=== PATIENT | male | born 1970 | race Caucasian/White ===

== ENCOUNTER 2017-01-01 11:40 | Observation (INO) | payer OTHER ==
--- NOTE | 2017-01-01 12:31 | ED ---
General Adult HPI - General Chief complaint: Chest Pain Stated complaint: Chest Pain Time Seen by Provider: 01/01/17 11:48 Source: patient, RN notes reviewed Mode of arrival: EMS Limitations: no limitations - History of Present Illness Initial comments: 46-year-old presents for evaluation of chest pain. Patient was sent by primary care physician for evaluation. Patient reports chest pain with exertion. Describes this as pressure. Severe at its maximum intensity, currently patient is chest pain-free. Is associated with some lightheadedness and shortness of breath. Patient is a current smoker. He does have history of previous PR, denies any stent placement. States his last stress test was several years ago. Patient has additional past medical history of hypertension, PTSD, anxiety. Patient denies nausea vomiting. Denies diaphoresis. - Related Data Home Medications Medication Instructions Recorded Confirmed Cyclobenzaprine [Flexeril] 10 mg PO BID PRN 10/26/15 01/01/17 Gabapentin [Neurontin] 900 mg PO TID 10/26/15 01/01/17 Ibuprofen [Motrin] 800 mg PO TID 10/26/15 01/01/17 Nitroglycerin Sl Tabs [Nitrostat] 0.4 mg SUBLINGUAL Q5M PRN 10/26/15 01/01/17 Omeprazole 20 mg PO BID 10/26/15 01/01/17 SUMAtriptan [Imitrex] 50 mg PO DAILY PRN 10/26/15 01/01/17 guaiFENesin 200 mg PO BID 10/26/15 01/01/17 hydrOXYzine HCL 25 mg PO TID 10/26/15 01/01/17 traMADol HCl [Ultram] 50 mg PO Q6H PRN 10/26/15 01/01/17 Aspirin 81 mg PO DAILY 10/27/15 01/01/17 Atorvastatin Calcium [Lipitor] 20 mg PO HS 10/27/15 01/01/17 Garlic 1 cap PO DAILY 10/27/15 01/01/17 Loratadine [Claritin] 10 mg PO DAILY 10/27/15 01/01/17 Vitamin B Complex 1 cap PO DAILY 10/27/15 01/01/17 Ascorbic Acid [Vitamin C] 500 mg PO DAILY 01/01/17 01/01/17 Cholecalciferol [Vitamin D3] 1,000 unit PO DAILY 01/01/17 01/01/17 Vitamin E 100 unit PO HS 01/01/17 01/01/17 Previous Rx's Medication Instructions Recorded amLODIPine [Norvasc] 2.5 mg PO DAILY #30 tablet 10/28/15 Allergies Allergy/AdvReac Type Severity Reaction Status Date / Time divalproex sodium AdvReac Unknown Verified 01/01/17 12:24 [From Depakote] prednisone AdvReac Unknown Verified 01/01/17 12:24 Review of Systems ROS Statement: Those systems with pertinent positive or pertinent negative responses have been documented in the HPI. ROS Other: All systems not noted in ROS Statement are negative. 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 Past Anesthesia/Blood Transfusion Reactions: No Reported Reaction Past Psychological History: ADD/ADHD, Anxiety, Depression, PTSD Smoking Status: Current every day smoker Past Alcohol Use History: Occasional Past Drug Use History: None Reported - Past Family History Father Family Medical History: Diabetes Mellitus Mother Family Medical History: COPD General Exam Limitations: no limitations General appearance: alert, in no apparent distress Head exam: Present: atraumatic, normocephalic Eye exam: Present: normal appearance, PERRL ENT exam: Present: normal exam, normal oropharynx Neck exam: Present: normal inspection. Absent: tenderness Respiratory exam: Present: normal lung sounds bilaterally. Absent: respiratory distress Cardiovascular Exam: Present: regular rate, normal rhythm GI/Abdominal exam: Present: soft. Absent: distended, tenderness Extremities exam: Present: normal inspection, normal capillary refill, other (2 + DP pulses bilaterally). Absent: pedal edema Back exam: Present: normal inspection, full ROM Neurological exam: Present: alert, oriented X3, CN II-XII intact. Absent: motor sensory deficit Psychiatric exam: Present: normal affect, normal mood Skin exam: Present: warm, dry, intact. Absent: cyanosis, diaphoretic Course Vital Signs 01/01/17 01/01/17 01/01/17 11:43 12:01 13:09 Temperature 98.0 F Pulse Rate 72 62 Pulse Rate [ 77 Automation Lead ] Respiratory 16 16 16 Rate Blood Pressure 136/74 135/77 O2 Sat by Pulse 100 99 Oximetry 01/01/17 01/01/17 13:47 13:58 Temperature Pulse Rate Pulse Rate [ Automation Lead ] Respiratory 16 Rate Blood Pressure 123/74 121/71 O2 Sat by Pulse 99 Oximetry EKG Findings - EKG Comments: EKG Findings:: EKG obtained at 1143, shows normal sinus rhythm, rightward axis, incomplete right bundle branch block, ventricular rate 67,. 146, QRS duration 110, QTC 41, no ST segment elevation or depression. Patient pain-free. EKG obtained at 1353 shows normal sinus rhythm, rightward axis, incomplete right bundle branch block, ventricular rate 63, para 146, QS duration 112, QTC 47, no ST segment elevation, change compared to previous EKG. Patient has 3 out of 10 substernal chest pain Medical Decision Making - Medical Decision Making 36-year-old male presented for evaluation of chest pain. Patient's pain is substernal, described as pressure. Patient does have shortness of breath associated with this. Pain was with exertion. Patient was given nitroglycerin by EMS with improvement of symptoms. At the time my initial evaluation he was chest pain-free, he did develop 3 out of 10 substernal chest pain, EKG was repeated and shows no significant change, this was also relieved by nitroglycerin. Patient was given nitroglycerin paste, started on heparin drip. Laboratory studies reveal a negative d-dimer, negative troponin, the blood cell count is mildly elevated, chest x-ray shows no acute findings. Diagnosis: Unstable angina - Lab Data Result diagrams: 01/01/17 12:03 01/01/17 12:03 Lab Results 01/01/17 01/01/17 01/01/17 Range/Units 12:03 12:03 12:03 WBC 12.6 H (3.8-10.6) k/uL RBC 5.04 (4.30-5.90) m/uL Hgb 14.1 (13.0-17.5) gm/dL Hct 43.6 (39.0-53.0) % MCV 86.5 (80.0-100.0) fL MCH 28.0 (25.0-35.0) pg MCHC 32.3 (31.0-37.0) g/dL RDW 13.1 (11.5-15.5) % Plt Count 300 (150-450) k/uL Neutrophils % 80 % Lymphocytes % 13 % Monocytes % 4 % Eosinophils % 2 % Basophils % 0 % Neutrophils # 10.1 H (1.3-7.7) k/uL Lymphocytes # 1.6 (1.0-4.8) k/uL Monocytes # 0.5 (0-1.0) k/uL Eosinophils # 0.2 (0-0.7) k/uL Basophils # 0.1 (0-0.2) k/uL PT (9.0-12.0) sec INR (<1.2) APTT (22.0-30.0) sec D-Dimer (<0.60) mg/L FEU Sodium 144 (137-145) mmol/L Potassium 4.6 (3.5-5.1) mmol/L Chloride 109 H (98-107) mmol/L Carbon Dioxide 25 (22-30) mmol/L Anion Gap 10 mmol/L BUN 12 (9-20) mg/dL Creatinine 0.78 (0.66-1.25) mg/dL Est GFR (MDRD) Af Amer >60 (>60 ml/min/1.73 sqM) Est GFR (MDRD) Non-Af >60 (>60 ml/min/1.73 sqM) Glucose 100 H (74-99) mg/dL Calcium 9.6 (8.4-10.2) mg/dL Magnesium 1.8 (1.6-2.3) mg/dL Total Bilirubin 0.3 (0.2-1.3) mg/dL AST 21 (17-59) U/L ALT 32 (21-72) U/L Alkaline Phosphatase 83 (38-126) U/L Total Creatine Kinase 103 (55-170) U/L CK-MB (CK-2) 1.6 (0.0-2.4) ng/mL CK-MB (CK-2) Rel Index 1.6 Troponin I <0.012 (0.000-0.034) ng/mL NT-Pro-B Natriuret Pep pg/mL Total Protein 6.9 (6.3-8.2) g/dL Albumin 4.0 (3.5-5.0) g/dL Lipase 58 (23-300) U/L 01/01/17 01/01/17 Range/Units 12:03 12:03 WBC (3.8-10.6) k/uL RBC (4.30-5.90) m/uL Hgb (13.0-17.5) gm/dL Hct (39.0-53.0) % MCV (80.0-100.0) fL MCH (25.0-35.0) pg MCHC (31.0-37.0) g/dL RDW (11.5-15.5) % Plt Count (150-450) k/uL Neutrophils % % Lymphocytes % % Monocytes % % Eosinophils % % Basophils % % Neutrophils # (1.3-7.7) k/uL Lymphocytes # (1.0-4.8) k/uL Monocytes # (0-1.0) k/uL Eosinophils # (0-0.7) k/uL Basophils # (0-0.2) k/uL PT 10.0 (9.0-12.0) sec INR 1.0 (<1.2) APTT 23.7 (22.0-30.0) sec D-Dimer 0.26 (<0.60) mg/L FEU Sodium (137-145) mmol/L Potassium (3.5-5.1) mmol/L Chloride (98-107) mmol/L Carbon Dioxide (22-30) mmol/L Anion Gap mmol/L BUN (9-20) mg/dL Creatinine (0.66-1.25) mg/dL Est GFR (MDRD) Af Amer (>60 ml/min/1.73 sqM) Est GFR (MDRD) Non-Af (>60 ml/min/1.73 sqM) Glucose (74-99) mg/dL Calcium (8.4-10.2) mg/dL Magnesium (1.6-2.3) mg/dL Total Bilirubin (0.2-1.3) mg/dL AST (17-59) U/L ALT (21-72) U/L Alkaline Phosphatase (38-126) U/L Total Creatine Kinase (55-170) U/L CK-MB (CK-2) (0.0-2.4) ng/mL CK-MB (CK-2) Rel Index Troponin I (0.000-0.034) ng/mL NT-Pro-B Natriuret Pep 85 pg/mL Total Protein (6.3-8.2) g/dL Albumin (3.5-5.0) g/dL Lipase (23-300) U/L Critical Care Time Critical Care Time: Yes Total Critical Care Time: 35 Disposition Clinical Impression: Unstable angina pectoris Disposition: ADMITTED IP TO THIS HOSP Condition: Stable Referrals: Alin Leihg DO [Primary Care Provider] - 1-2 days Decision to Admit Reason: Admit from EC Decision Date: 01/01/17 Decision Time: 14:22
[2017-01-01 12:59] LABS: Basophils # (A) 0.1 k/uL (0-0.2); Basophils % (A) 0 %; CH 27.9; CHCM 32.5; Eosinophils # (A) 0.2 k/uL (0-0.7); Eosinophils % (A) 2 %; HCT 43.6 % (39.0-53.0); HDW 2.42; HGB 14.1 gm/dL (13.0-17.5); Luc # (Auto) 0.13; Luc % (Auto) 1; Lymphocytes # (A) 1.6 k/uL (1.0-4.8); Lymphocytes % (A) 13 %; MCHC 32.3 g/dL (31.0-37.0); MCV 86.5 fL (80.0-100.0); Mean Platelet Volume 7.2; Monocytes # (A) 0.5 k/uL (0-1.0); Monocytes % (A) 4 %; Neutrophils # (A) 10.1 k/uL (1.3-7.7); Neutrophils % (A) 80 %; RBC 5.04 m/uL (4.30-5.90); RDW 13.1 % (11.5-15.5); WBC 12.6 k/uL (3.8-10.6); WBC (Perox) 12.01
[2017-01-01 13:02] LABS: ALT 32 U/L (21-72); AST 21 U/L (17-59); Alkaline Phosphatase 83 U/L (38-126); Anion Gap 10 mmol/L; Blood Urea Nitrogen 12 mg/dL (9-20); Calcium 9.6 mg/dL (8.4-10.2); Carbon Dioxide 25 mmol/L (22-30); Chloride 109 mmol/L (98-107); Glucose 100 mg/dL (74-99); Magnesium 1.8 mg/dL (1.6-2.3); Non-African American GFR(MDRD) >60 (>60 ml/min/1.73 sqM); Potassium 4.6 mmol/L (3.5-5.1); Sodium 144 mmol/L (137-145); Total Bilirubin 0.3 mg/dL (0.2-1.3); Total Protein 6.9 g/dL (6.3-8.2)
[2017-01-01 13:05] LABS: Partial Thromboplastin Time 23.7 sec (22.0-30.0)
[2017-01-01 13:12] LABS: Creatine Kinase 103 U/L (55-170)
--- NOTE | 2017-01-01 13:16 | XR ---
EXAMINATION TYPE: XR chest 2V DATE OF EXAM: 01/01/2017 COMPARISON: Prior chest x-ray 10/27/2015 HISTORY: Chest pain TECHNIQUE: Frontal and lateral views of the chest are obtained. FINDINGS: There is no focal air space opacity, pleural effusion, or pneumothorax seen. The cardiac silhouette size is within normal limits. There are overlying cardiac leads. The osseous structures a re intact. IMPRESSION: No acute cardiopulmonary process.
[2017-01-01 13:25] LABS: Creatine Kinase MB 1.6 ng/mL (0.0-2.4); Troponin I <0.012 ng/mL (0.000-0.034)
[2017-01-01] MEDS ORDERED: NITROGLYCERIN SL TABS 0.4 MG TAB SUBLINGUAL STA (13:42)
[2017-01-01] MEDS ORDERED: NITROGLYCERIN OINT 1 INCH/GM PACKET TOPICAL STA (13:56)
[2017-01-01] MEDS ORDERED: HEPARIN SODIUM,PORCINE 5,000 UNIT/ML 1 ML VIAL IV ONE (14:04)
[2017-01-01] MEDS ORDERED: HEPARIN SODIUM,PORCINE 5,000 UNIT/ML 1 ML VIAL IV PRN (14:04)
[2017-01-01] MEDS ORDERED: HEPARIN SODIUM,PORCINE/D5W PMX 25,000 UNIT in DEXTROSE/WATER 1 500ML.BAG IV SCH (14:15)
[2017-01-01] MEDS ORDERED: ASPIRIN 325 MG TAB PO STA (14:22)
[2017-01-01] MEDS ORDERED: ACETAMINOPHEN TAB 325 MG TAB PO PRN (14:23)
[2017-01-01] MEDS ORDERED: MORPHINE SULFATE 10 MG/ML SYRINGE IV PRN (14:23)
[2017-01-01] MEDS ORDERED: NALOXONE 0.4 MG/ML 1 ML VIAL IV PRN (14:23)
[2017-01-01] MEDS ORDERED: DIPHENOX-ATROP 2.5-0.025 MG 1 EACH TAB PO PRN (17:45)
[2017-01-01] MEDS ORDERED: CYCLOBENZAPRINE 10 MG TAB PO PRN (17:45)
[2017-01-01] MEDS ORDERED: SUMAtriptan SUCCINATE 50 MG TAB PO PRN (17:45)
[2017-01-01 18:10] LABS: Creatine Kinase 87 U/L (55-170)
[2017-01-01 18:22] LABS: Creatine Kinase MB 1.2 ng/mL (0.0-2.4); Troponin I <0.012 ng/mL (0.000-0.034)
[2017-01-01] MEDS: traMADol 50 MG TAB PO PRN (18:28)
[2017-01-01] MEDS: IBUPROFEN 800 MG TAB PO PRN (18:58)
[2017-01-01] MEDS: hydrOXYzine HCL 25 MG TAB PO PRN (18:58)
[2017-01-01] MEDS: SODIUM CHLORIDE 0.9% 1,000 ML IV SCH (18:59)
[2017-01-01] MEDS: PANTOPRAZOLE 40 MG TABLET PO SCH (18:59)
[2017-01-01] MEDS: NICOTINE 21MG/24HR PATCH TRANSDERM SCH (18:59)
[2017-01-01] MEDS ORDERED: VITAMIN E (DL,TOCOPHERYL ACET) 400 UNIT CAP PO SCH (21:00)
[2017-01-01] MEDS ORDERED: MELATONIN 5 MG TABLET PO SCH (21:00)
[2017-01-01] MEDS ORDERED: ATORVASTATIN 40 MG TAB PO SCH (21:00)
[2017-01-01] MEDS: guaiFENesin 600 MG TABLET.ER PO SCH (21:23)
[2017-01-01] MEDS: GABAPENTIN 300 MG CAP PO SCH (21:24)
[2017-01-02 01:14] LABS: Creatine Kinase 77 U/L (55-170)
[2017-01-02 01:27] LABS: Creatine Kinase MB 0.9 ng/mL (0.0-2.4); Troponin I <0.012 ng/mL (0.000-0.034)
[2017-01-02] MEDS: SODIUM CHLORIDE 0.9% 1,000 ML IV SCH (05:28)
[2017-01-02 07:14] LABS: Basophils # (A) 0.1 k/uL (0-0.2); Basophils % (A) 1 %; CH 27.5; CHCM 31.8; Eosinophils # (A) 0.4 k/uL (0-0.7); Eosinophils % (A) 5 %; HCT 41.1 % (39.0-53.0); HGB 13.2 gm/dL (13.0-17.5); Luc # (Auto) 0.14; Luc % (Auto) 2; Lymphocytes # (A) 2.4 k/uL (1.0-4.8); Lymphocytes % (A) 33 %; MCHC 32.1 g/dL (31.0-37.0); MCV 87.2 fL (80.0-100.0); Monocytes # (A) 0.3 k/uL (0-1.0); Monocytes % (A) 4 %; Neutrophils % (A) 55 %; RBC 4.71 m/uL (4.30-5.90); RDW 13.1 % (11.5-15.5); WBC 7.3 k/uL (3.8-10.6); WBC (Perox) 7.36
[2017-01-02 07:20] LABS: ALT 38 U/L (21-72); AST 17 U/L (17-59); Alkaline Phosphatase 78 U/L (38-126); Anion Gap 5 mmol/L; Blood Urea Nitrogen 12 mg/dL (9-20); Calcium 8.9 mg/dL (8.4-10.2); Carbon Dioxide 29 mmol/L (22-30); Chloride 106 mmol/L (98-107); Glucose 95 mg/dL (74-99); Non-African American GFR(MDRD) >60 (>60 ml/min/1.73 sqM); Potassium 4.7 mmol/L (3.5-5.1); Sodium 140 mmol/L (137-145); Total Bilirubin 0.4 mg/dL (0.2-1.3); Total Protein 5.8 g/dL (6.3-8.2)
--- NOTE | 2017-01-02 07:20 | HP ---
HISTORY AND PHYSICAL CHIEF COMPLAINT: Chest pain. HISTORY OF PRESENT ILLNESS: This is a 46-year-old gentleman with past medical history of hypertension, history of myocardial infarction, Vigil's esophagitis, migraine headaches, being followed by Dr. Leigh in the outpatient setting was helping a friend with wood cutting last Wednesday. Apparently patient had chest pains on and off involving the anterior part of the chest which is more of a pressure type of sensation, mild to moderate intensity. Patient came to [facility] and admitted for further evaluation and treatment. The patient apparently took some nitro with some relief. Otherwise the patient also has significant history of PTSD and anxiety also. There is no history of fever, rigors. No history of headache, loss of consciousness, seizures at this time. PAST MEDICAL HISTORY: History of CVA, TIA, hypertension, hyperlipidemia, history of myocardial infarction, chest pain, history of concussion, right bundle branch block, history of anxiety , depression and PTSD. MEDICATIONS: Prior to admission include home medications are: 1. Melatonin 5 mg p.o. q.h.s. 2. Lactobacillus acidophilus. 3. Vitamin D3 2000. 4. Omeprazole 20 mg p.o. t.i.d. 5. Lidocaine patch. 6. Lipitor 40 mg q.h.s. 7. Guaifenesin 400 mg p.o. b.i.d. 8. Ultram 50 mg q.6h p.r.n. 9. Vitamin E 100 units q.h.s. 10.Imitrex 50 mg daily p.r.n. 11.Nitrostat 0.4 sublingual mg p.r.n. 12.Flexeril 10 mg b.i.d. p.r.n. 13.Hydroxyzine 25 mg p.o. t.i.d. p.r.n. 14.Norvasc 2.5 mg daily. 15.Vitamin B. 16.Claritin 10 mg. 17.Motrin 800 mg t.i.d. p.r.n. 18.Garlic 1 capsule p.o. daily. 19.Neurontin 900 mg p.o. t.i.d. 20.Aspirin 81 mg b.i.d. 21.Vitamin C 500 mg p.o. daily. ALLERGIES: DEPAKOTE. PREDNISONE. FAMILY HISTORY: History of diabetes in the family. SOCIAL HISTORY: History of smoking and alcohol. REVIEW OF SYSTEMS: ENT: No diminished vision, no diminished hearing. Cardio system: As mentioned earlier. Respiratory: As mentioned earlier. GI no nausea or vomiting. no dysuria or urinary retention. Central nervous system: No numbness or weakness. ALLERGY/IMMUNOLOGY: No asthma or hayfever. Musculoskeletal: As mentioned earlier. HEMATOLOGY/ONCOLOGY: No anemia. Endocrine: No history of diabetes or hypothyroidism. Constitutional: As mentioned earlier. Dermatology: Negative. Rheumatology: Negative. Psychiatric: As mentioned earlier. PHYSICAL EXAMINATION: Alert and oriented times three. Pulse is 70, blood pressure 140/60, respirations 18, temperature 98 degrees, pulse ox 94% on room air HEENT: Conjunctivae normal. Oral mucosa moist. Neck is no jugular venous distention. No carotid bruit. No lymph node enlargement. Cardiovascular S1, S2 muffled. Respirations: Breath sounds diminished in the bases. No rhonchi. No crackles. Abdomen: Soft. Nontender. No mass palpable. Legs no edema and no swelling. Central nervous system: Higher functions as mentioned earlier. Moves all four limbs. No focal deficits. Lymphatics: No lymph nodes palpable in the neck, axillae or groin. Skin no ulcer, rash or bleeding. LAB STUDIES: WBC 12.6, troponin less than 0.012, and the chest x-ray was done which was reported as no acute cardiopulmonary abnormality and EKG which is personally reviewed by me showed incomplete right bundle block. ASSESSMENT: 1. Chest pain for evaluation, possible unstable angina. 2. Right bundle branch block on the EKG. 3. History of myocardial infarction. 4. History of Vigil's esophagus and hiatal hernia. 5. History of migraine headaches. 6. Anxiety PTSD. 7. Hypertension. RECOMMENDATIONS AND DISCUSSION: In this 46-year-old gentleman who presented with multiple complex medical issues , we will monitor the patient closely. Rule out myocardial infarction. Unstable angina protocol. Cardiology consultation. The patient apparently had recent . Prognosis guarded because of multiple complex medical issues. Further recommendations to follow. Copy of dictation being forwarded to Dr. Leigh, who is the primary physician. MMODL / PARVIZN: [id number] / MTDD
[2017-01-02] MEDS: traMADol 50 MG TAB PO PRN (07:45)
[2017-01-02] MEDS ORDERED: LORATADINE 10 MG TAB PO SCH (09:00)
[2017-01-02] MEDS ORDERED: LACTOBACILLUS ACIDOPH & BULGAR 1 EACH PACKET PO SCH (09:00)
[2017-01-02] MEDS ORDERED: LIDOCAINE 5% PATCH TOPICAL SCH (09:00)
[2017-01-02] MEDS ORDERED: amLODIPine 2.5 MG TAB PO SCH (09:00)
[2017-01-02] MEDS ORDERED: ASPIRIN 81 MG PO SCH (09:00)
[2017-01-02] MEDS: guaiFENesin 600 MG TABLET.ER PO SCH (09:35)
[2017-01-02] MEDS: PANTOPRAZOLE 40 MG TABLET PO SCH (09:35)
[2017-01-02] MEDS: GABAPENTIN 300 MG CAP PO SCH ×2 (09:35→16:32)
[2017-01-02] MEDS: NICOTINE 21MG/24HR PATCH TRANSDERM SCH (09:37)
[2017-01-02] MEDS: hydrOXYzine HCL 25 MG TAB PO PRN (10:58)
[2017-01-02] MEDS: IBUPROFEN 800 MG TAB PO PRN (10:59)
[2017-01-02 11:47] VITALS: TEMP 98.2
[2017-01-02] MEDS ORDERED: ASCORBIC ACID 500 MG TAB PO SCH (12:00)
[2017-01-02] MEDS ORDERED: CHOLECALCIFEROL 1,000 UNIT TAB PO SCH (12:00)
[2017-01-02] MEDS ORDERED: B COMPLEX-VIT C-VIT E-ZINC 1 EACH TAB PO SCH (12:00)
--- NOTE | 2017-01-02 15:38 | CONS ---
CONSULTATION This is a 46-year-old gentleman, [employer] who seeks most of his health care in the [facility], has had a cardiac cath in 2009 which was normal per patient and this was performed in the [place] area. He sees a nipple machine operator in the [facility]. He had a stress test about a year ago that was unremarkable. He was doing well until last week when he started trying to help his friend cut down a tree, felt exhausted, tired, and did not have enough energy, felt dizzy, lightheaded, and came into the hospital. After arrival, he did not have any further chest pain. He had mostly lightheadedness. He did not have any orthostatic changes. He received some IV fluids, is resting comfortably. He does have a history of hypertension, hyperlipidemia, atypical chest pain, previous cardiac cath and also questionable history of prior myocardial infarction as well as some migraine headaches. I looked up his previous history and noted that he had a stress echo performed in October 2015 at which time he walked for over 9 minutes, but his heart rate was only 75% of predicted maximal and therefore this was inconclusive study. After that, he has had another pharmacological testing. Details are not available. He is resting comfortably without symptoms at the time of my evaluation. PAST MEDICAL HISTORY: 1. History of atypical chest pain with a negative cardiac cath in 2009 per patient. 2. He has history of TIA, details unclear. No neurological deficit. 3. History of concussion. 4. He has a history of anxiety. 5. History of some right bundle branch block pattern. 6. No documented evidence of prior myocardial infarction, although he tells me that they indicated to him he had an [facility], but echo revealed completely normal LV function. MEDICATIONS: At home include melatonin, lactobacillus, vitamin D, Lipitor, Ultram, he also has a sublingual nitroglycerin which he took yesterday as well, but the pain seemed to be very atypical. The patient's main issue appears to be sharp pains on and off in the anterior part of the chest. Sometimes feels a sensation of pressure, but all of this has resolved. He is resting comfortable and all his troponins are normal. Please refer to Dr. Lazcano's detailed H and P for other information. PHYSICAL EXAMINATION: Blood pressure is 130/70, pulse rate 70 per minute, regular. HEENT: Unremarkable. Fundus was not examined by me. Neck is supple. No JVD. I do not hear a carotid bruit. There is no thyromegaly. Heart exam reveals S1, S2 heard normally without a rub, murmur or gallop. Lungs are clear. Abdomen is soft, nontender. Lower extremities reveal normal pulses. No edema. Central nervous system is normal. EKG revealed a sinus mechanism with incomplete right bundle branch block type pattern. No acute changes. LABORATORY DATA: Revealed that all 3 troponins are normal. No other significant abnormalities are noted and D-dimer is normal. IMPRESSION: 1. Atypical chest pain. 2. Questionable history of prior myocardial infarction, but unremarkable cardiac cath per patient. 3. Anxiety. 4. Hypertension. 5. History of hyperlipidemia. RECOMMENDATIONS: I am recommending that he can be discharged. No intervention necessary at this time, but patient has an appointment with his nipple machine operator and I advised him to have a pharmacological stress test as an outpatient. Thank you very much for the consult. MMWENDY / PARVIZN: [id number] /
[2017-01-02 15:46] VITALS: BMI 31.8
[2017-01-02 15:52] VITALS: BP 170/75; PULSE 70; RESP 20
--- NOTE | 2017-01-02 16:21 | P.DS ---
Providers Date of admission: 01/01/17 14:27 Attending physician: Abdulaziz Lazcano Consults: 01/01/17 14:25 Consult Physician Urgent Consulting Provider: Eliazar Gambino Consult Reason/Comments: Unstable angina Do you want consulting provider notified?: Yes [facility] care [facility] Course: Patient came in with chest pain which is reproducible [place] skeletal nature, patient was a valid by cardiology and cleared for discharge and patient is being discharged today in stable medical condition to home please refer to the H &P from yesterday for further details of all his chronic medical problems, he could medical problems and treatments that were done here. Patient will follow- up with his PCP as an outpatient. Patient is chest pain-free at this time. PHYSICAL EXAMINATION: GENERAL: The patient is alert and oriented x3, not in any acute distress. Well developed, well nourished. HEENT: Pupils are round and equally reacting to light. EOMI. No scleral icterus. No conjunctival pallor. Normocephalic, atraumatic. No pharyngeal erythema. No thyromegaly. CARDIOVASCULAR: S1 and S2 present. No murmurs, rubs, or gallops. PULMONARY: Chest is clear to auscultation, no wheezing or crackles. ABDOMEN: Soft, nontender, nondistended, normoactive bowel sounds. No palpable organomegaly. MUSCULOSKELETAL: No joint swelling or deformity. EXTREMITIES: No cyanosis, clubbing, or pedal edema. NEUROLOGICAL: Gross neurological examination did not reveal any focal deficits. SKIN: No rashes. Patient Condition at Discharge: Stable Plan - Discharge Summary Discharge Rx Participant: No New Discharge Prescriptions: No Action Gabapentin [Neurontin] 900 mg PO TID Cyclobenzaprine [Flexeril] 10 mg PO BID PRN PRN Reason: Pain SUMAtriptan [Imitrex] 50 mg PO DAILY PRN PRN Reason: Headache Omeprazole 20 mg PO TID Nitroglycerin Sl Tabs [Nitrostat] 0.4 mg SUBLINGUAL Q5M PRN PRN Reason: Chest Pain hydrOXYzine HCL 25 mg PO TID PRN PRN Reason: Anxiety guaiFENesin 400 mg PO BID Ibuprofen [Motrin] 800 mg PO TID PRN PRN Reason: Pain traMADol HCl [Ultram] 50 mg PO Q6H PRN PRN Reason: Pain Loratadine [Claritin] 10 mg PO DAILY Aspirin 81 mg PO DAILY Vitamin B Complex 1 cap PO DAILY Garlic 1 cap PO DAILY amLODIPine [Norvasc] 2.5 mg PO DAILY #30 tablet Vitamin E 100 unit PO HS Cholecalciferol [Vitamin D3] 2,000 unit PO DAILY Ascorbic Acid [Vitamin C] 500 mg PO DAILY Atorvastatin [Lipitor] 40 mg PO HS Diphenoxylate HCl/Atropine [Lomotil 2.5-0.025 mg Tablet] 2 tab PO Q6H PRN MDD 8 tablets PRN Reason: Diarrhea Lactobacillus Acidophilus [Acidophilus] 2 tab PO DAILY Lidocaine 5% Patch [Lidoderm] 1 patch TOPICAL DAILY Melatonin 5 mg PO HS Discharge Medication List Cyclobenzaprine [Flexeril] 10 mg PO BID PRN 10/26/15 [History] Gabapentin [Neurontin] 900 mg PO TID 10/26/15 [History] Ibuprofen [Motrin] 800 mg PO TID PRN 10/26/15 [History] Nitroglycerin Sl Tabs [Nitrostat] 0.4 mg SUBLINGUAL Q5M PRN 10/26/15 [History] Omeprazole 20 mg PO TID 10/26/15 [History] SUMAtriptan [Imitrex] 50 mg PO DAILY PRN 10/26/15 [History] guaiFENesin 400 mg PO BID 10/26/15 [History] hydrOXYzine HCL 25 mg PO TID PRN 10/26/15 [History] traMADol HCl [Ultram] 50 mg PO Q6H PRN 10/26/15 [History] Aspirin 81 mg PO DAILY 10/27/15 [History] Garlic 1 cap PO DAILY 10/27/15 [History] Loratadine [Claritin] 10 mg PO DAILY 10/27/15 [History] Vitamin B Complex 1 cap PO DAILY 10/27/15 [History] amLODIPine [Norvasc] 2.5 mg PO DAILY #30 tablet 10/28/15 [Rx] Ascorbic Acid [Vitamin C] 500 mg PO DAILY 01/01/17 [History] Atorvastatin [Lipitor] 40 mg PO HS 01/01/17 [History] Cholecalciferol [Vitamin D3] 2,000 unit PO DAILY 01/01/17 [History] Diphenoxylate HCl/Atropine [Lomotil 2.5-0.025 mg Tablet] 2 tab PO Q6H PRN MDD 8 tablets 01/01/17 [History] Lactobacillus Acidophilus [Acidophilus] 2 tab PO DAILY 01/01/17 [History] Lidocaine 5% Patch [Lidoderm] 1 patch TOPICAL DAILY 01/01/17 [History] Melatonin 5 mg PO HS 01/01/17 [History] Vitamin E 100 unit PO HS 01/01/17 [History] Follow up Appointment(s)/Referral(s): Alin Leigh DO [Primary Care Provider] - 3 Days Activity/Diet/Wound Care/Special Instructions: 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 Discharge Disposition: HOME SELF-CARE
== END 2017-01-02 16:33 | disposition home or self-care (01) ==
LOC: EC 11:40 → 3OBS 14:27
PROVIDERS: ADMIT Hospitalist; ATTEND Hospitalist
DX: R07.89 Other chest pain (principal); R06.02 Shortness of breath; R42 Dizziness and giddiness; F17.200 Nicotine dependence, unspecified, uncomplicated; I25.2 Old myocardial infarction; E78.5 Hyperlipidemia, unspecified; I10 Essential (primary) hypertension; G43.909 Migraine, unspecified, not intractable, without status migrainosus; F41.9 Anxiety disorder, unspecified; F90.9 Attention-deficit hyperactivity disorder, unspecified type; F32.9 Major depressive disorder, single episode, unspecified; K22.70 Barrett's esophagus without dysplasia; I45.10 Unspecified right bundle-branch block; K44.9 Diaphragmatic hernia without obstruction or gangrene; F43.10 Post-traumatic stress disorder, unspecified; Z79.899 Other long term (current) drug therapy; Z79.82 Long term (current) use of aspirin; Z88.8 Allergy status to other drugs, medicaments and biological substances; Z86.73 Personal history of transient ischemic attack (TIA), and cerebral infarction without residual deficits; Z83.3 Family history of diabetes mellitus; Z82.5 Family history of asthma and other chronic lower respiratory diseases; Z87.820 Personal history of traumatic brain injury; Z79.1 Long term (current) use of non-steroidal anti-inflammatories (NSAID)
CPT/HCPCS: 96376 ×2; 96361; 96365; 96366 ×2; 99291; 36415; 93005; 85379; 83880; 80053 ×2; 82550 ×2; 82553 ×2; 83690; 83735; 84484 ×2; 85025 ×2; 85610; 85730 ×2; 82272; 71020; G0378 ×2; S4990 ×2; J1644 ×2

== ENCOUNTER → 2017-11-22 | Day surgery (SDC) | payer OTHER ==
[2017-11-18 10:20] VITALS: BMI 30.1
[~2017-11-22] MED LIST: LACTATED RINGERS 1,000 ML IV SCH; LIDOCAINE 1% INJ 10MG/ML (20 ML MDV) ONE; PROPOFOL 10 MG/ML 20 ML VIAL IV ONE
[2017-11-22 08:18] VITALS: RESP 18; TEMP 97.8
--- NOTE | 2017-11-22 09:19 | P.GSHP ---
History of Present Illness H&P Date: 11/22/17 Chief Complaint: GERD This a 47-year-old male who presents today for EGD. He's had history of GERD. Patient has history of Vigil's esophagitis. Past Medical History Past Medical History: Chest Pain / Angina, CVA/TIA, GERD/Reflux, Hyperlipidemia , Myocardial Infarction ([place]), Osteoarthritis ([place]) Additional Past Medical History / Comment(s): concussions x 19, leaky heart valve, brachial tachycardia, RBBB, barretts esphogus, hiatal hernia, migraines, Last Myocardial Infarction Date:: June 14, 2007 History of Any Multi-Drug Resistant Organisms: None Reported Past Surgical History: Heart Catheterization, Orthopedic Surgery Additional Past Surgical History / Comment(s): left shoulder surgeries, 3 eye surgeries on left eye(VITRECTOMY, TORN RETINA),laser sx rt eye, left froearm foreign body removed, left bicep lipoma removed, left rib cage lipoma removed, vasectomy. RIGHT SHOULDER surgery x2 Past Anesthesia/Blood Transfusion Reactions: No Reported Reaction Smoking Status: Current every day smoker - Past Family History Father Family Medical History: Diabetes Mellitus Mother Family Medical History: No Reported History, COPD Medications and Allergies Home Medications Medication Instructions Recorded Confirmed Type Cyclobenzaprine [Flexeril] 10 mg PO BID PRN 10/26/15 11/22/17 History Gabapentin [Neurontin] 900 mg PO TID 10/26/15 11/22/17 History Ibuprofen [Motrin] 800 mg PO TID PRN 10/26/15 11/22/17 History Nitroglycerin Sl Tabs [Nitrostat] 0.4 mg SUBLINGUAL Q5M PRN 10/26/15 11/22/17 History Omeprazole 20 mg PO TID 10/26/15 11/22/17 History SUMAtriptan [Imitrex] 50 mg PO DAILY PRN 10/26/15 11/22/17 History guaiFENesin 200 mg PO TID 10/26/15 11/22/17 History hydrOXYzine HCL 25 mg PO TID PRN 10/26/15 11/22/17 History traMADol HCl [Ultram] 50 mg PO Q6H PRN 10/26/15 11/22/17 History Aspirin 81 mg PO DAILY 10/27/15 11/22/17 History Garlic 1 cap PO DAILY 10/27/15 11/22/17 History Loratadine [Claritin] 10 mg PO DAILY 10/27/15 11/22/17 History Vitamin B Complex 1 cap PO DAILY 10/27/15 11/22/17 History amLODIPine [Norvasc] 2.5 mg PO DAILY #30 tablet 10/28/15 11/22/17 Rx Ascorbic Acid [Vitamin C] 500 mg PO DAILY 01/01/17 11/22/17 History Cholecalciferol [Vitamin D3] 2,000 unit PO DAILY 01/01/17 11/22/17 History Lidocaine 5% Patch [Lidoderm] 1 patch TOPICAL DAILY 01/01/17 11/22/17 History Melatonin 5 mg PO HS 01/01/17 11/22/17 History Vitamin E 100 unit PO HS 01/01/17 11/22/17 History Magnesium Oxide 420 mg PO DAILY 11/18/17 11/22/17 History Simvastatin [Zocor] 20 mg PO HS 11/18/17 11/22/17 History Allergies Allergy/AdvReac Type Severity Reaction Status Date / Time divalproex sodium AdvReac SEVERE Verified 11/22/17 08:15 [From Depakote] ANXIETY prednisone AdvReac Unknown Verified 11/22/17 08:15 Surgical - Exam Vital Signs Temp Pulse Resp BP Pulse Ox 97.8 F 72 18 147/89 97 11/22/17 08:16 11/22/17 08:16 11/22/17 08:16 11/22/17 08:16 11/22/17 08:16 - General well developed, no distress - Eyes PERRL - ENT normal pinna - Neck no masses - Respiratory normal expansion - Cardiovascular Rhythm: regular - Abdomen Abdomen: soft, non tender Assessment and Plan Assessment: GERD. We'll perform EGD.
--- NOTE | 2017-11-22 09:27 | P.OP ---
Date of Procedure: 11/22/17 Preoperative Diagnosis: GERD Postoperative Diagnosis: Antral gastritis Procedure(s) Performed: EGD Anesthesia: MAC Surgeon: Eric Marie Pathology: other (Antrum, esophagus) Condition: stable Disposition: PACU Description of Procedure: The patient's placed on the endoscopy table in the lateral position. He received IV sedation. The gastroscope placed oropharynx and passed in the esophagus into the stomach. Scope was then placed through the pylorus. The first and second portion of the duodenum appeared normal. The scope was then brought back the antrum and this was mildly inflamed. A biopsies performed. The scope was then retroflexed and the remainder stomach appeared normal. There is no significant hiatal hernia. The GE junction was at 40 cm. The distal esophagus appeared minimally inflamed and a biopsies performed. The proximal esophagus appeared normal. There is no appearance of Vigil's esophagus. Scope was withdrawn for patient.
[2017-11-22 09:43] VITALS: BP 122/75; PULSE 75
== END ==
LOC: ORWHC2ENDO 07:56
PROVIDERS: ATTEND Surgery
DX: K21.0 Gastro-esophageal reflux disease with esophagitis (principal); K29.50 Unspecified chronic gastritis without bleeding; I25.119 Atherosclerotic heart disease of native coronary artery with unspecified angina pectoris; F17.200 Nicotine dependence, unspecified, uncomplicated; I45.10 Unspecified right bundle-branch block; E78.5 Hyperlipidemia, unspecified; I25.2 Old myocardial infarction; M19.90 Unspecified osteoarthritis, unspecified site; Z86.73 Personal history of transient ischemic attack (TIA), and cerebral infarction without residual deficits; Z79.82 Long term (current) use of aspirin; Z79.899 Other long term (current) drug therapy; Z88.8 Allergy status to other drugs, medicaments and biological substances
CPT/HCPCS: 88305; 43239; J2001; J2704

== ENCOUNTER → 2018-03-28 | Outpatient (CLI) | payer OTHER ==
--- NOTE | 2018-03-28 08:11 | FL ---
EXAMINATION TYPE: FL barium swallow DATE OF EXAM: 03/28/2018 CLINICAL HISTORY: Dysphagia, food getting stuck. Food going into airway per patient. TECHNIQUE: A double contrast esophagram is performed utilizing air and barium. A total of 45 second s of fluoroscopic time was utilized during procedure. 34 spot images are saved to PACS. COMPARISON: None FINDINGS: The esophagus shows satisfactory motility and emptying into the stomach. No evidence of fi xed hiatal hernia or stricture noted. Small sliding-type hiatal hernia noted towards end of study. No diverticulum is present. No intraluminal mass is noted. No significant gastroesophageal reflux was s een during real time performance of this study. IMPRESSION: No suspicious mass or stricture to account for patient's symptoms.
--- NOTE | 2018-03-28 09:35 | CT ---
EXAMINATION TYPE: CT neck chest w con DATE OF EXAM: 03/28/2018 COMPARISON: Same day esophagram. HISTORY: Lump on neck, possible lipoma. Dysphasia. Cough. CT DLP: 1055.4 mGycm. Automated Exposure Control for Dose Reduction was Utilized. TECHNIQUE: CT scan of the neck and chest are performed following with IV Contrast, patient injected with 100 mL of Isovue 300. FINDINGS: NECK: Airway: No gross abnormality seen. Parotid/submandibular glands: No gross abnormality seen. Carotid/Vascular Structures: Mild mixed plaque left carotid bulb without significant stenosis Osseous Structures: No significant abnormality is seen. Other: Left orbital cortical buckle is noted. Old fracture deformity bilateral medial orbital marcos i s present. There is partial opacification of ethmoid sinuses bilaterally. Scattered subcentimeter lymph nodes throughout the neck bilaterally. No suspicious greater than 1 cm neck adenopathy. CHEST: LUNGS: Mild underlying emphysematous change in the upper lungs is present. No suspicious parenchymal nodules or masses. No pleural effusion or pneumothorax is seen. MEDIASTINUM: There are no greater than 1 cm hilar or mediastinal lymph nodes. No cardiomegaly or p ericardial effusion is seen. OTHER: No additional significant abnormality is seen. IMPRESSION: No suspicious masses or adenopathy.
== END ==
LOC: RADCTMAIN 06:54
PROVIDERS: ATTEND Otolaryngology
DX: R22.1 Localized swelling, mass and lump, neck (principal); R05 Cough; R13.10 Dysphagia, unspecified; R49.0 Dysphonia
CPT/HCPCS: 74220; 70491; 71260; Q9967

== ENCOUNTER → 2018-07-06 | Outpatient (CLI) | payer OTHER ==
--- NOTE | 2018-07-06 15:41 | MR ---
EXAMINATION TYPE: MR shoulder RT wo con DATE OF EXAM: 07/06/2018 COMPARISON: 01/24/2016 HISTORY: Right shoulder pain TECHNIQUE: Multiplanar, multisequence imaging of the right shoulder is performed without contrast. FINDINGS: Rotator Cuff: Fluid in the subacromial bursa. No significant effusion is evident. No tendon or muscle retraction is evident. No fatty infiltration of the muscles is evident. Small amount increased signa ls in the distal supraspinatus tendon without communication with the external or internal portion of the capsule. This was present previously. Acromioclavicular Joint: Hypertrophy directed superiorly. Glenohumeral Joint: Humerus articulates with the glenoid. Labrum: The labrum appears grossly intact given limitation of non-arthrogram study. Biceps Tendon: The long head of biceps is in normal location within bicipital groove. Bone marrow signal: No focal abnormal marrow signal is appreciated. Other: No additional significant abnormality is appreciated. IMPRESSION: Moderate tendinosis supraspinatus tendon. Perforation is considered less likely but would be within t he differential. Findings appear stable from the comparison study 2015.
== END | disposition home or self-care (01) ==
LOC: RADMRIMAIN 10:42
PROVIDERS: ATTEND Orthopaedic Surgery
DX: M75.81 Other shoulder lesions, right shoulder (principal)

== ENCOUNTER 2018-08-10 06:33 | Day surgery (SDC) | payer OTHER ==
[2018-08-05 14:59] VITALS: BMI 27.9
--- NOTE | 2018-08-09 13:44 | HP ---
HISTORY AND PHYSICAL Surgery is scheduled for 08/10/2018. Seven Cameorn is a 48-year-old patient seen with progressive right shoulder pain. Treatment options were discussed with him. He elected to proceed with arthroscopy. Consent was obtained. PAST MEDICAL HISTORY: His past medical history is gastroesophageal reflux disease, hypertension. PAST SURGICAL HISTORY: Right shoulder arthroscopy. DAILY MEDICATIONS: 1. Amlodipine. 2. Gabapentin. 3. Motrin. 4. Prilosec. ALLERGIES: None. SOCIAL HISTORY: He smokes a half pack cigarettes daily. PHYSICAL EXAMINATION: Physical evaluation of the right shoulder, he has well-healed previous arthroscopic portal sites. His flexion is 150 degrees, abduction 140 degrees, external rotation is 30 degrees with some pain and weakness. There is tenderness along the anterior lateral acromion and rotator cuff insertion site. His impingement sign is positive at 90 degrees. His distal neurovascular exam is intact. Right shoulder radiographs revealed a stable AC joint resection. An MRI of the right shoulder revealed rotator cuff tenderness with possible full- thickness perforation. IMPRESSION: 1. Right shoulder impingement, possible rotator cuff tear. 2. Gastroesophageal reflux disease. 3. Hypertension. 4. Tobacco use. PLAN: Right shoulder arthroscopy with decompression, possible arthroscopic rotator cuff repair and debridement. MMODL / IJN: [id number] /
[~2018-08-10 06:33] MED LIST changes: +DEXAMETHASONE SOD PHOSPHATE 10 MG/ML 1 ML VIAL IV ONE; +HYDROmorphone 0.5 MG/0.5 ML SYRINGE IVP PRN; +LIDOCAINE 1% 20 ML VIAL (10MG/ML) FOR IV START INTRADERMA PRN; -LIDOCAINE 1% INJ 10MG/ML (20 ML MDV) ONE; +MIDAZOLAM 2 MG/2 ML VIAL IV PRN; +ONDANSETRON 4 MG/2 ML VIAL IVP ONE; -PROPOFOL 10 MG/ML 20 ML VIAL IV ONE; +SCOPOLAMINE 1.5MG/72HR PATCH TRANSDERM ONE; +ceFAZolin IN SWFI 2 GM/20 ML SYRINGE IVP ONE; +fentaNYL (PF) 50 MCG/ML 2 ML AMP IVP PRN
[2018-08-10] MEDS ORDERED: fentaNYL (PF) 50 MCG/ML 2 ML AMP IVP ONE (07:48)
[2018-08-10] MEDS ORDERED: MIDAZOLAM (PF) 2 MG/2 ML VIAL IVP ONE (07:49)
[2018-08-10] MEDS ORDERED: MIDAZOLAM 2 MG/2 ML VIAL ONE (08:24)
[2018-08-10] MEDS ORDERED: ePHEDrine SULFATE/0.9% NACL/PF 50 MG/5 ML SYRINGE IV ONE (08:24)
[2018-08-10] MEDS ORDERED: ROPIVACAINE 5 MG/ML 30 ML VIAL ONE (08:24)
[2018-08-10] MEDS ORDERED: fentaNYL (PF) 50 MCG/ML 2 ML AMP ONE (08:24)
[2018-08-10] MEDS ORDERED: LIDOCAINE 1% INJ 10MG/ML (20 ML MDV) ONE (08:24)
[2018-08-10] MEDS ORDERED: PROPOFOL 10 MG/ML 20 ML VIAL IV ONE (08:24)
[2018-08-10] MEDS ORDERED: SUCCINYLCHOLINE CHLORIDE 100 MG/5 ML SYR IV ONE (08:24)
--- NOTE | 2018-08-10 09:20 | P.ANPRN ---
Procedure Note - Anesthesia - Nerve Block Performed Right Interscalene Single Time Out Performed: Yes Date of Procedure: 08/10/18 Procedure Start Time: 07:47 Location of Patient Procedure: PreOp Indication: Acute Post-Operative Pain Specifically requested for management of pain by DrRegan: Kip Gonzalez Sedation Type: Sedate with meaningful contact maintained Position: Supine Catheter: None Needle Types: Pajunk Needle Gauge: 21 Technique: Ultrasound Injectate: 0.5% Ropivacaine (see comment for volume) (20) Blood Aspirated: No Pain Paresthesia on Injection Noted: No Resistance on Injection: Normal Events: Uneventful and Well Tolerated
--- NOTE | 2018-08-10 10:10 | P.OP ---
Date of Procedure: 08/10/18 Preoperative Diagnosis: Right shoulder impingement Postoperative Diagnosis: 1. Right shoulder rotator cuff tear 2. Right shoulder impingement 3. Right shoulder superficial labral tear Procedure(s) Performed: 1. Right shoulder arthroscopic rotator cuff repair 2. Right shoulder arthroscopic subacromial decompression 3. Right shoulder arthroscopic debridement labral tear Implants: 1Arthrex 4.75 swivel lock anchor Anesthesia: GETA, regional (Interscalene block) Surgeon: Kip Gonzalez Sample Clerk #1: Christian Mcgrath Estimated Blood Loss (ml): 7 Pathology: none sent Condition: stable Disposition: PACU Indications for Procedure: 48-year-old patient seen with progressive right shoulder pain. After treatment options were discussed, he elected to proceed with arthroscopy. Operative Findings: see description of procedure Description of Procedure: Patient underwent an interscalene block by department of anesthesia for postoperative pain management. The patient was then taken to the operative suite. The patient underwent a general anesthetic by the department of anesthesia. The patient was placed into a lateral position and secured. There was appropriate padding of the bony prominence. Right shoulder was then prepped and draped in normal sterile orthopedic fashion. We placed the extremity in 10 pounds of longitudinal traction. A posterior incision was now made for a posterior working portal site. The trocar and cannula were inserted into the glenohumeral joint. Arthroscopy was initiated. Spinal needle was now inserted anteriorly, to ascertain the anterior working portal site. An incision was now made in that area, a trocar was inserted followed by a probe. There was superficial tearing of the superior and anterior labrum. There were grade 1 chondral malacia changes of the humeral head. The biceps tendon was absent. I debrided that superficial labral tear down to stable tissue. The residual labrum was stable. Instruments now removed from the glenohumeral joint. Utilizing the posterior working portal site, the trocar and cannula were inserted into the subacromial space. Arthroscopy initiated. I made an incision 2 fingerbreadths lateral to the acromion. I introduced my trocar followed by my ArthroCare ablator. I now began ablating thick subacromial bursal tissue, which exposed the undersurface of the anterior acromion. There appeared to be a lateral and anterior spur. A motorized bur was introduced and decompression was performed. There appeared be a good subacromial space at this point. I turned my attention to the rotator cuff tendon. The was some superficial fraying of the anterior aspect of the distal supraspinatus. I debrided that utilizing motorize shaver. Upon probing the area was a full-thickness perforation noted. I debrided the margins again now stable tendon tissue. The defect measured approximately 1 cm. I now abraded the footprint with a motorized bur. With the assistance of Nino SALINAS passed 2 everted mattress sutures through good bites of rotator cuff tendon. I now punched a hole for our anchor insertion. We then passed the sutures through the eyelet of a 4.75 Arthrex anchor. The eyelet was introduced into our pre-punch hole. I held that position while the branch tension the sutures and introduced anchor. [place] had good purchase and fixation. All residual suture limbs were now clipped. We had good compression of the tendon along the entire footprint. I injected 1 mL Renue intra- articular. Instruments now removed from the portal sites. All portal sites were approximated with nylon suture. Sterile dressings were applied followed by a shoulder sling. Christian SALINAS assisted in this case. The patient was awakened, transferred to a bed, and taken to recovery in stable condition.
[2018-08-10 10:11] VITALS: TEMP 97.6
[2018-08-10 10:17] VITALS: RESP 16
[2018-08-10 11:22] VITALS: BP 117/61; PULSE 66
== END 2018-08-10 11:55 | disposition home or self-care (01) ==
LOC: OR 06:33
PROVIDERS: ATTEND Orthopaedic Surgery
DX: M75.101 Unspecified rotator cuff tear or rupture of right shoulder, not specified as traumatic (principal); M75.41 Impingement syndrome of right shoulder; S43.431A Superior glenoid labrum lesion of right shoulder, initial encounter; X58.XXXA Exposure to other specified factors, initial encounter; I10 Essential (primary) hypertension; K21.9 Gastro-esophageal reflux disease without esophagitis; F17.210 Nicotine dependence, cigarettes, uncomplicated; I25.2 Old myocardial infarction; E78.5 Hyperlipidemia, unspecified; Z86.73 Personal history of transient ischemic attack (TIA), and cerebral infarction without residual deficits; R41.3 Other amnesia; Z79.1 Long term (current) use of non-steroidal anti-inflammatories (NSAID); Z79.899 Other long term (current) drug therapy; Z88.8 Allergy status to other drugs, medicaments and biological substances
CPT/HCPCS: 29826; 29827; 64415; C1713; C1765; J2250 ×2; J1100; J2405; J2001; J3010; J2795; J0330; J2704; J0690

== ENCOUNTER 2018-11-17 06:17 | Day surgery (SDC) | payer OTHER ==
[2018-11-14 10:49] VITALS: BMI 28.7
[~2018-11-17 06:17] MED LIST changes: -DEXAMETHASONE SOD PHOSPHATE 10 MG/ML 1 ML VIAL IV ONE; +HEPARIN SODIUM,PORCINE 5,000 UNIT/ML 1 ML VIAL SQ ONE; -HYDROmorphone 0.5 MG/0.5 ML SYRINGE IVP PRN; -LACTATED RINGERS 1,000 ML IV SCH; -LIDOCAINE 1% 20 ML VIAL (10MG/ML) FOR IV START INTRADERMA PRN; -MIDAZOLAM 2 MG/2 ML VIAL IV PRN; -ONDANSETRON 4 MG/2 ML VIAL IVP ONE; -SCOPOLAMINE 1.5MG/72HR PATCH TRANSDERM ONE; -ceFAZolin IN SWFI 2 GM/20 ML SYRINGE IVP ONE; -fentaNYL (PF) 50 MCG/ML 2 ML AMP IVP PRN; +metroNIDAZOLE-NS PMX 500 MG in SALINE 1 100ML.BAG IVPB ONE
[2018-11-17] MEDS ORDERED: LACTATED RINGERS 1,000 ML IV ONE (06:48)
[2018-11-17] MEDS ORDERED: ONDANSETRON 4 MG/2 ML VIAL IVP ONE (06:55)
[2018-11-17] MEDS ORDERED: PROPOFOL 10 MG/ML 20 ML VIAL IV ONE (07:53)
[2018-11-17] MEDS ORDERED: KETAMINE 10 MG/ML 20 ML VIAL ONE (07:53)
[2018-11-17] MEDS ORDERED: fentaNYL (PF) 50 MCG/ML 2 ML AMP ONE (07:53)
[2018-11-17] MEDS ORDERED: MIDAZOLAM 2 MG/2 ML VIAL ONE (07:53)
[2018-11-17] MEDS ORDERED: BUPIVACAIN-EPI 0.25%-1:200,000 30 ML VIAL SQ ONE (08:17)
[2018-11-17 08:45] VITALS: TEMP 97.5
--- NOTE | 2018-11-17 09:03 | P.GSHP ---
History of Present Illness H&P Date: 11/17/18 Chief Complaint: Pilonidal cyst This is a 48-year-old male who is developed a pilonidal cyst. Patient resents today for excision. Past Medical History Past Medical History: Chest Pain / Angina, CVA/TIA, GERD/Reflux, Hyperlipidemia, Memory Impairment, Myocardial Infarction ([place]) Additional Past Medical History / Comment(s): concussions x 19, leaky heart valve, tachycardia, thickening of heart wall, , barretts esphogus, hiatal hernia with lipoma which is pressing on diapraghm, migraines, States TIA 2007- affected short term memory. , Hx of GI bleed possibly caused by malaria meds he received in [place]., pt states "[place] Syndrome" with swelling of joints. , Tinnitus. Last Myocardial Infarction Date:: June 14, 2007 History of Any Multi-Drug Resistant Organisms: None Reported Past Surgical History: Heart Catheterization, Orthopedic Surgery Additional Past Surgical History / Comment(s): Left Shoulder Surgery, Right Shoulder Surger x2., , 3 eye surgeries on left eye(VITRECTOMY, TORN RETINA),laser sx rt eye, left forearm foreign body removed, left bicep lipoma removed, left rib cage lipoma removed, vasectomy. , Heart Cath x2 (no stents) Past Anesthesia/Blood Transfusion Reactions: No Reported Reaction Smoking Status: Current every day smoker - Past Family History Father Family Medical History: Diabetes Mellitus Mother Family Medical History: No Reported History Medications and Allergies Home Medications Medication Instructions Recorded Confirmed Type Cyclobenzaprine [Flexeril] 10 mg PO TID PRN 10/26/15 11/17/18 History Gabapentin [Neurontin] 900 mg PO TID 10/26/15 11/17/18 History Ibuprofen [Motrin] 800 mg PO TID PRN 10/26/15 11/17/18 History Nitroglycerin Sl Tabs [Nitrostat] 0.4 mg SUBLINGUAL Q5M PRN 10/26/15 11/17/18 History Omeprazole 20 mg PO DAILY@1500 10/26/15 11/17/18 History SUMAtriptan [Imitrex] 50 mg PO DAILY PRN 10/26/15 11/17/18 History guaiFENesin 400 mg PO BID 10/26/15 11/17/18 History Aspirin 81 mg PO HS 10/27/15 11/17/18 History Garlic 1 cap PO HS 10/27/15 11/17/18 History Loratadine [Claritin] 10 mg PO DAILY 10/27/15 11/17/18 History Vitamin B Complex 1 cap PO DAILY 10/27/15 11/17/18 History Ascorbic Acid [Vitamin C] 500 mg PO TID 01/01/17 11/17/18 History Cholecalciferol [Vitamin D3] 2,000 unit PO DAILY 01/01/17 11/17/18 History Melatonin 5 mg PO HS 01/01/17 11/17/18 History Vitamin E 100 unit PO HS 01/01/17 11/17/18 History Magnesium Oxide 420 mg PO DAILY 11/18/17 11/17/18 History Simvastatin [Zocor] 20 mg PO HS 11/18/17 11/17/18 History Ginkgo Biloba [place] Extract [Ginkgo 30 mg PO DAILY 06/17/18 11/17/18 History Biloba] Lidocaine 4% Cream [Lmx 4] 1 applic TOPICAL DAILY PRN 06/17/18 11/17/18 History Ranitidine HCl [Zantac] 150 mg PO BID 06/17/18 11/17/18 History Testosterone Booster Otc 1 dose PO DAILY 06/17/18 11/17/18 History amLODIPine [Norvasc] 2.5 mg PO HS 06/17/18 11/17/18 History hydrOXYzine HCL [Atarax] 50 mg PO BID 06/17/18 11/17/18 History traMADol HCL [Ultram ER] 100 mg PO QID PRN 06/17/18 11/17/18 History Acetaminophen Tab [Tylenol Tab] 650 mg PO Q4H PRN 08/05/18 11/17/18 History Allergies Allergy/AdvReac Type Severity Reaction Status Date / Time prednisone AdvReac PTSD- Verified 11/17/18 06:49 ANGRY .- cannot take custodial. topiramate [From Topamax] AdvReac Hallucinati Verified 11/17/18 06:49 ons Surgical - Exam Vital Signs Temp Pulse Resp BP Pulse Ox 98.1 F 67 16 132/70 97 11/17/18 06:43 11/17/18 06:43 11/17/18 06:43 11/17/18 06:43 11/17/18 06:43 - General well developed, well nourished, no distress - Eyes PERRL - ENT normal pinna - Neck no masses - Respiratory normal expansion - Cardiovascular Rhythm: regular - Integumentary 3 cm pilonidal cyst is evidence of chronic inflammation Assessment and Plan Plan: Pilonidal cyst. We'll perform excision. Patient's aware that we'll be packed after surgery and require local wound care.
--- NOTE | 2018-11-17 09:05 | P.OP ---
Date of Procedure: 11/17/18 Preoperative Diagnosis: Pilonidal cyst Postoperative Diagnosis: Pilonidal cyst Procedure(s) Performed: Excision of pilonidal cyst Anesthesia: MAC Surgeon: Eric Marie Estimated Blood Loss (ml): 5 Pathology: other (Pilonidal cyst) Condition: stable Disposition: PACU Description of Procedure: The patient's placed on the operative table in the prone position. He received IV sedation. The pilonidal cyst area was prepped and draped usual sterile fashion. He received IV anesthesia and local anesthetic. Elliptical skin incision was made around the pilonidal cyst and then using cautery the palpable cyst was excised. The the Bovie was used for hemostasis. The wound was packed with dry Kerlix. Patient tolerated the procedure well and was sent to recovery room in stable condition.
[2018-11-17] MEDS ORDERED: HYDROcodone/APAP 5-325MG 1 EACH TAB PO ONE (10:06)
[2018-11-17 10:23] VITALS: BP 125/74; PULSE 74; RESP 22
== END 2018-11-17 10:42 | disposition home or self-care (01) ==
LOC: OR 06:17
PROVIDERS: ATTEND Surgery
DX: L05.91 Pilonidal cyst without abscess (principal); K21.9 Gastro-esophageal reflux disease without esophagitis; I69.311 Memory deficit following cerebral infarction; F17.210 Nicotine dependence, cigarettes, uncomplicated; I20.9 Angina pectoris, unspecified; E78.5 Hyperlipidemia, unspecified; I25.2 Old myocardial infarction; I38 Endocarditis, valve unspecified; R00.0 Tachycardia, unspecified; K22.70 Barrett's esophagus without dysplasia; Z98.52 Vasectomy status; Z83.3 Family history of diabetes mellitus; K44.9 Diaphragmatic hernia without obstruction or gangrene; G43.909 Migraine, unspecified, not intractable, without status migrainosus; Z86.13 Personal history of malaria; Z97.2 Presence of dental prosthetic device (complete) (partial); H93.19 Tinnitus, unspecified ear; Z79.82 Long term (current) use of aspirin; Z79.899 Other long term (current) drug therapy; Z88.8 Allergy status to other drugs, medicaments and biological substances
CPT/HCPCS: 88304; 11770; J2250; J1644; J0690; J2405; J3010; J2704

== ENCOUNTER → 2018-12-05 | Outpatient (CLI) | payer OTHER ==
--- NOTE | 2018-12-07 06:22 | MR ---
EXAMINATION TYPE: MR knee LT wo con DATE OF EXAM: 12/05/2018 COMPARISON: Radiograph 11/22/2018 HISTORY: 48-year-old male with left knee pain TECHNIQUE: Multiplanar, multisequence imaging of the left knee is performed without IV contrast. FINDINGS: ACL, PCL, MCL, and LCL complex are intact. Medial meniscus shows oblique tear involving the posterior horn extending to the junction with the me niscal body. Overall medial compartment articular cartilage volume is maintained. The lateral meniscus shows partially discoid configuration and degenerative signal within the posteri or horn. Signal does not clearly contact either articular surface at this time. Lateral compartment a rticular cartilage volume is maintained. The patellofemoral compartment articular cartilage is intact. Extensor mechanism is intact. Nonspecific mild anterior soft tissue swelling. Some edema within the s uprapatellar fat pad is noted. No significant knee joint effusion or Valdovinos's cyst. Normal popliteal artery anatomy and muscle bulk. No suspicious bone marrow replacement. IMPRESSION: 1. Oblique tear involving the posterior horn of the medial meniscus extending to the junction with th e meniscal body. 2. Partially discoid lateral meniscus with degenerative signal in the posterior horn. No clear articu lar sided communication at this time to suggest a romina lateral meniscal tear. 3. Focal edema within the suprapatellar fat pad. Findings can be seen in the setting of fat pad impin gement syndrome. Clinically correlate.
== END ==
LOC: RADMRIMAIN 13:16
PROVIDERS: ATTEND Orthopaedic Surgery
DX: S83.242A Other tear of medial meniscus, current injury, left knee, initial encounter (principal); M17.12 Unilateral primary osteoarthritis, left knee; M79.4 Hypertrophy of (infrapatellar) fat pad

== ENCOUNTER → 2018-12-21 | Outpatient (CLI) | payer OTHER ==
[2018-12-21 14:51] LABS: Basophils # (A) 0.1 k/uL (0-0.2); Basophils % (A) 1 %; Eosinophils # (A) 0.2 k/uL (0-0.7); Eosinophils % (A) 2 %; HCT 47.9 % (39.0-53.0); HGB 14.8 gm/dL (13.0-17.5); Lymphocytes # (A) 2.4 k/uL (1.0-4.8); Lymphocytes % (A) 22 %; MCH 27.4 pg (25.0-35.0); MCHC 30.9 g/dL (31.0-37.0); MCV 88.9 fL (80.0-100.0); Mean Platelet Volume 6.7; Monocytes # (A) 0.4 k/uL (0-1.0); Monocytes % (A) 4 %; Neutrophils # (A) 7.5 k/uL (1.3-7.7); Neutrophils % (A) 70 %; Platelet Count 297 k/uL (150-450); RBC 5.39 m/uL (4.30-5.90); RDW 13.5 % (11.5-15.5); WBC 10.8 k/uL (3.8-10.6)
[2018-12-21 15:04] LABS: Potassium 4.9 mmol/L (3.5-5.1)
== END | disposition home or self-care (01) ==
LOC: LABPAT 12:05
PROVIDERS: ATTEND Orthopaedic Surgery
DX: Z01.812 Encounter for preprocedural laboratory examination (principal)
CPT/HCPCS: 80051; 85025

== ENCOUNTER 2018-12-22 10:49 | Day surgery (SDC) | payer OTHER ==
[2018-12-20 14:21] VITALS: BMI 30.1
--- NOTE | 2018-12-21 13:30 | HP ---
HISTORY AND PHYSICAL Surgery is scheduled for 12/22/2018. HISTORY OF PRESENT ILLNESS: Seven Cameron is 48-year-old patient seen with progressive left knee pain. After treatment options were discussed with him, he elected to proceed with left knee arthroscopy. Consent regarding the procedure was obtained. PAST MEDICAL HISTORY: His past medical history is hypertension, gastroesophageal reflux disease, posttraumatic stress disorder. PAST SURGICAL HISTORY: Right shoulder arthroscopy. DAILY MEDICATIONS: 1. Amlodipine. 2. Flexeril. 3. Gabapentin. 4. Motrin. 5. Prilosec. 6. Zantac. ALLERGIES: STEROIDS. SOCIAL HISTORY: He smokes half pack of cigarettes daily. PHYSICAL EXAMINATION: Physical evaluation of the left knee: Range of motion 0-120. Mild effusion. Tenderness medial joint line. Positive medial Mela's. Ligaments stable. Hip rotation without pain. Distal neurovascular exam intact. Radiographs of the left knee revealed mild osteoarthritic changes. A left knee MRI revealed a medial meniscal tear. IMPRESSION: 1. Internal derangement left knee with medial meniscal tear. 2. Hypertension. 3. Gastroesophageal reflux disease. PLAN: Left knee arthroscopy with partial meniscectomy and debridement. MMODL / IJN: [id number] /
[~2018-12-22 10:49] MED LIST changes: -HEPARIN SODIUM,PORCINE 5,000 UNIT/ML 1 ML VIAL SQ ONE; +HYDROmorphone 0.5 MG/0.5 ML SYRINGE IVP PRN; +LACTATED RINGERS 1,000 ML IV SCH; +MIDAZOLAM 2 MG/2 ML VIAL IV PRN; +ONDANSETRON 4 MG/2 ML VIAL IVP ONE; -metroNIDAZOLE-NS PMX 500 MG in SALINE 1 100ML.BAG IVPB ONE
[2018-12-22] MEDS ORDERED: LIDOCAINE 1% 20 ML VIAL (10MG/ML) FOR IV START INTRADERMA ONE (11:09)
[2018-12-22] MEDS ORDERED: BUPIVACAINE (PF) 0.25% 30 ML VIAL SQ ONE (11:56)
[2018-12-22 12:21] VITALS: TEMP 97
--- NOTE | 2018-12-22 12:24 | P.OP ---
Date of Procedure: 12/22/18 Preoperative Diagnosis: Internal derangement left knee Postoperative Diagnosis: 1. Tear lateral meniscus left knee 2. Medial plica left knee 3. Reactive synovitis medial, lateral and suprapatellar compartments left knee Procedure(s) Performed: 1. Arthroscopic partial lateral meniscectomy left knee 2. Arthroscopic resection medial plica left knee 3. Arthroscopic partial synovectomy medial, lateral and suprapatellar compartments left knee Anesthesia: GETA, local Surgeon: Kip Gonzalez Estimated Blood Loss (ml): 5 Pathology: none sent Condition: stable Disposition: PACU Indications for Procedure: 48-year-old patient seen with progressive left knee pain. After treatment options were discussed, he elected to proceed with arthroscopy. Operative Findings: See description of procedure Description of Procedure: Patient was taken to the operative suite. Patient underwent a general anesthetic by the department of anesthesia. Patient was given preoperative antibiotics. The left lower extremity was placed in a well-padded arthroscopic leg stephens. The left leg was prepped and draped in the normal sterile orthopedic fashion. A lateral parapatellar and suprapatellar incision was made. Trochars were inserted. Arthroscopy was initiated. Suprapatellar pouch revealed thick reactive synovitis. The patellofemoral joint appeared to articulate congruently. There was grade 1 chondromalacia with no osteochondral tears present. The scope was guided into the medial gutter. There was a medial plica which did impinge along the medial femoral condyle with range of motion The scope was then guided into the medial compartment. A medial parapatellar incision was made. Trocar inserted followed by probe. The medial meniscus was probed and found to be stable. There was no significant chondromalacia. There was thick reactive synovitis anteriorly. I introduced a motorized shaver and performed a partial synovectomy decompressing the thick reactive synovitis. Shaver was removed. There was good decompression of synovitis. Scope and probe were then guided into the intercondylar notch. Cruciates were identified, probed and found to be stable. The scope and probe were then guided into lateral compartment. There was a small radial tear posterior lateral meniscus. There was no significant chondromalacia. There was thick reactive synovitis anteriorly. I performed a partial lateral meniscectomy getting down to stable tissue. I performed a partial synovectomy decompressing the thick reactive synovitis anteriorly. The residual meniscus was probed and found to be stable. There was good decompression of synovitis. The scope was in guided back into the suprapatellar compartment. I introduced a motorized shaver into the super compartment. I resected that medial plica. I performed a partial synovectomy decompressing reactive synovitis. The shaver was removed. I took the knee through range of motion noted complete resection of the plica. There was good range of motion and no impingement along the medial femoral condyle. There was good decompression of the synovitis. Instruments were now removed from the joint. The joint was infiltrated with .25% Marcaine. Steri-Strips were applied to the portal sites. Sterile dressings were applied. The patient was placed into a PANCHO hose. No tourniquet was utilized. The patient was awakened, transferred to a bed and taken to recovery stable satisfactory condition.
[2018-12-22 12:32] VITALS: RESP 16
[2018-12-22 13:13] VITALS: BP 120/73; PULSE 64
== END 2018-12-22 13:44 | disposition home or self-care (01) ==
LOC: OR 10:49
PROVIDERS: ATTEND Orthopaedic Surgery
DX: S83.282A Other tear of lateral meniscus, current injury, left knee, initial encounter (principal); M67.52 Plica syndrome, left knee; M65.862 Other synovitis and tenosynovitis, left lower leg; M22.42 Chondromalacia patellae, left knee; I10 Essential (primary) hypertension; I25.2 Old myocardial infarction; K22.70 Barrett's esophagus without dysplasia; K21.9 Gastro-esophageal reflux disease without esophagitis; K44.9 Diaphragmatic hernia without obstruction or gangrene; F43.10 Post-traumatic stress disorder, unspecified; F17.210 Nicotine dependence, cigarettes, uncomplicated; F41.9 Anxiety disorder, unspecified; F90.9 Attention-deficit hyperactivity disorder, unspecified type; M19.90 Unspecified osteoarthritis, unspecified site; Z88.8 Allergy status to other drugs, medicaments and biological substances; Z86.73 Personal history of transient ischemic attack (TIA), and cerebral infarction without residual deficits; Z79.82 Long term (current) use of aspirin; Z79.899 Other long term (current) drug therapy; Z79.1 Long term (current) use of non-steroidal anti-inflammatories (NSAID); Z98.890 Other specified postprocedural states; X58.XXXA Exposure to other specified factors, initial encounter
CPT/HCPCS: 29881; 29876; J0690; J2405

== ENCOUNTER → 2019-08-02 | Outpatient (CLI) | payer OTHER | END | disposition home or self-care (01) | LOC: LABWHC1 12:00 | PROVIDERS: ATTEND Internal Medicine Gastroenterology | DX: Z53.9 Procedure and treatment not carried out, unspecified reason (principal) ==

== ENCOUNTER 2019-08-04 08:35 | Day surgery (SDC) | payer OTHER ==
[2019-08-03 09:28] VITALS: BMI 30.1
[~2019-08-04 08:35] MED LIST changes: -HYDROmorphone 0.5 MG/0.5 ML SYRINGE IVP PRN; -MIDAZOLAM 2 MG/2 ML VIAL IV PRN; -ONDANSETRON 4 MG/2 ML VIAL IVP ONE
[2019-08-04 09:08] VITALS: TEMP 97.7
[2019-08-04] MEDS ORDERED: LACTATED RINGERS 1,000 ML IV ONE (09:19)
[2019-08-04] MEDS ORDERED: LIDOCAINE 1% INJ 10MG/ML (20 ML MDV) ONE (09:37)
[2019-08-04] MEDS ORDERED: PROPOFOL 10 MG/ML 20 ML VIAL IV ONE (09:37)
--- NOTE | 2019-08-04 09:52 | P.PCN ---
Date of Procedure: 08/04/19 Procedure(s) Performed: BRIEF HISTORY: Patient is a 49-year-old pleasant white male scheduled for an elective colonoscopy as a part of evaluation of intermittent rectal bleeding for the last 10 years duration. Has alternating diarrhea and constipation. PROCEDURE PERFORMED: Colonoscopy. PREOPERATIVE DIAGNOSIS: Intermittent rectal bleeding. IV sedation per Anesthesia. PROCEDURE: After informed consent was obtained, the patient, was brought into the endoscopy unit. IV sedation was administered by Anesthesia under continuous monitoring. Digital rectal examination was normal. Initially the Olympus CF-160 flexible video colonoscope was then inserted in the rectum, gradually advanced into the cecum without any difficulty. Careful examination was performed as the scope was gradually being withdrawn. Ileocecal valve and the appendiceal orifice were visualized and appeared normal. Prep was excellent. Mucosa of the cecum, ascending colon, transverse colon, descending colon, sigmoid colon, and rectum appeared normal. Scattered sigmoid diverticulosis. Retroflexion was performed in the rectum and small internal hemorrhoids were seen. The patient tolerated the procedure well. IMPRESSION: Normal-appearing colon from rectum to cecum with no evidence of colorectal neoplasia Small internal hemorrhoids . Scattered sigmoid diverticula RECOMMENDATIONS: Findings of this examination were discussed with the patient as well as a family. He was advised to be a high-fiber diet and take fiber s upplements on a regular basis and avoid straining and constipation. He was advised to have a repeat colonoscopy in 10 years.
[2019-08-04 10:10] VITALS: BP 122/78; PULSE 78; RESP 16
== END 2019-08-04 10:29 | disposition home or self-care (01) ==
LOC: ORWHC2ENDO 08:35
PROVIDERS: ATTEND Internal Medicine Gastroenterology
DX: K57.31 Diverticulosis of large intestine without perforation or abscess with bleeding (principal); K64.8 Other hemorrhoids; R19.7 Diarrhea, unspecified; I20.9 Angina pectoris, unspecified; I25.2 Old myocardial infarction; E78.5 Hyperlipidemia, unspecified; I38 Endocarditis, valve unspecified; F17.200 Nicotine dependence, unspecified, uncomplicated; H91.90 Unspecified hearing loss, unspecified ear; M19.90 Unspecified osteoarthritis, unspecified site; F90.9 Attention-deficit hyperactivity disorder, unspecified type; F43.10 Post-traumatic stress disorder, unspecified; F32.9 Major depressive disorder, single episode, unspecified; F41.9 Anxiety disorder, unspecified; K21.9 Gastro-esophageal reflux disease without esophagitis; K44.9 Diaphragmatic hernia without obstruction or gangrene; K22.70 Barrett's esophagus without dysplasia; F48.8 Other specified nonpsychotic mental disorders; H35.9 Unspecified retinal disorder; Z88.8 Allergy status to other drugs, medicaments and biological substances; Z86.73 Personal history of transient ischemic attack (TIA), and cerebral infarction without residual deficits; Z79.890 Hormone replacement therapy; Z79.891 Long term (current) use of opiate analgesic; Z79.899 Other long term (current) drug therapy; Z79.1 Long term (current) use of non-steroidal anti-inflammatories (NSAID); Z79.82 Long term (current) use of aspirin; Z98.890 Other specified postprocedural states
CPT/HCPCS: 45378; J2001; J2704

== ENCOUNTER 2020-01-19 09:48 | Day surgery (SDC) | payer OTHER ==
[2020-01-18 10:08] VITALS: BMI 28.7
[~2020-01-19 09:48] MED LIST changes: +LIDOCAINE 1% (10MG/ML) FOR IV START INTRADERMA PRN
[2020-01-19 10:45] VITALS: TEMP 97
[2020-01-19] MEDS ORDERED: PROPOFOL 10 MG/ML 20 ML VIAL IV ONE (11:33)
[2020-01-19] MEDS ORDERED: LIDOCAINE 1% INJ 10MG/ML (20 ML MDV) ONE (11:33)
[2020-01-19] MEDS ORDERED: MIDAZOLAM 2 MG/2 ML VIAL ONE (11:33)
[2020-01-19] MEDS ORDERED: fentaNYL (PF) 50 MCG/ML 2 ML AMP ONE (11:33)
--- NOTE | 2020-01-19 11:43 | P.PCN ---
Date of Procedure: 01/19/20 Procedure(s) Performed: BRIEF HISTORY: Patient is a 49-year-old, pleasant, male scheduled for an upper endoscopy as a part of evaluation of long-standing history of GERD and questionable Vigil's esophagus. Last EGD was 2 years ago. PROCEDURE PERFORMED: Esophagogastroduodenoscopy with biopsy. . PREOPERATIVE DIAGNOSIS: Long-standing history of GERD IV sedation per anesthesia. PROCEDURE: After informed consent was obtained, the patient was brought into the endoscopy unit. IV sedation was administered by Anesthesia under continuous monitoring. Initially the Olympus GIF-140 video endoscope was inserted into the mouth. Esophagus intubated without any difficulty. It was gradually advanced into the stomach and duodenum and carefully examined. The bulb and the second part of the duodenum appeared normal. The scope at this time was withdrawn to the stomach, adequately insufflated with air, and upon careful examination, mucosa of the antrum, body, cardia and the fundus appeared normal. The scope was then withdrawn into the esophagus. Small sliding type hiatal hernia noted. The GE junction was located at 41 cm from the incisors. it appeared irregular and there was a 2-3 mm and of Vigil's appearing mucosa just proximal to the GE junction which was biopsied. The rest of the esophagus appeared normal. There were no erosions or ulcerations seen and the patient tolerated the procedure well. IMPRESSION: 1. Irregular GE junction with a 2-3 mm tongue of Vigil's appearing mucosa ex tending proximal to the GE junction status post biopsy. 2. Small sliding type hiatal hernia RECOMMENDATIONS: The findings of this examination were discussed with the patient as well as his family. He was advised to continue with omeprazole 20 mg daily. At this time will await biopsy results. If the biopsy confirms the presence of Vigil's esophagus he can have a repeat upper endoscopy in 2-3 years.
[2020-01-19 11:54] VITALS: RESP 16
[2020-01-19 12:04] VITALS: BP 130/79; PULSE 79
== END 2020-01-19 12:28 | disposition home or self-care (01) ==
LOC: ORWHC2ENDO 09:48
PROVIDERS: ATTEND Internal Medicine Gastroenterology
DX: K21.00 Gastro-esophageal reflux disease with esophagitis, without bleeding (principal); K44.9 Diaphragmatic hernia without obstruction or gangrene; F17.210 Nicotine dependence, cigarettes, uncomplicated; K22.70 Barrett's esophagus without dysplasia; Z79.891 Long term (current) use of opiate analgesic; Z79.1 Long term (current) use of non-steroidal anti-inflammatories (NSAID); Z79.899 Other long term (current) drug therapy; Z88.8 Allergy status to other drugs, medicaments and biological substances
CPT/HCPCS: 88305; 43239; J2250; J2001; J3010; J2704

== ENCOUNTER → 2020-01-30 | Outpatient (CLI) | payer OTHER ==
--- NOTE | 2020-01-30 10:00 | CT ---
EXAMINATION TYPE: CT chest wo con DATE OF EXAM: 01/30/2020 COMPARISON: None HISTORY: Chest pain, substernal CT DLP: [address] of the chest was performed with lung and mediastinal window settings submitted. The la ck of contrast limits evaluation of the vascular, mediastinal and parenchymal structures including th e upper abdomen. LUNGS: The lungs are clear and free of infiltrate. No atelectasis. No pulmonary nodule or mass is de tected. No pleural effusion. No CT evidence of interstitial lung disease. MEDIASTINUM/KARISSA: Thoracic aorta is of normal caliber with limited evaluation given lack of contrast . The heart is not enlarged. No evidence for mediastinal mass. No lymph nodes greater than 1cm. UPPER ABDOMEN: No significant abnormality is seen. OTHER: No significant other abnormality. IMPRESSION: 1. No distinct abnormality to account for the patient's symptoms.
== END | disposition home or self-care (01) ==
LOC: RADCTMAIN 08:25
PROVIDERS: ATTEND Thoracic Surgery (Cardiothoracic Vascular Surgery)
DX: R07.89 Other chest pain (principal)
CPT/HCPCS: 71250

== ENCOUNTER → 2020-01-30 | Outpatient (CLI) | payer OTHER ==
--- NOTE | 2020-01-30 16:29 | MR ---
EXAMINATION TYPE: MR knee RT wo con DATE OF EXAM: 01/30/2020 COMPARISON: Outside radiograph 01/08/2019 HISTORY: 50-year-old male M25.561, Right knee pain TECHNIQUE: Multiplanar, multisequence imaging of the right knee is performed without IV contrast. FINDINGS: ACL, PCL, MCL, and LCL complex appear intact. There is abnormal signal at the junction of the posterior horn and body of the medial meniscus that m ay contact the tibial articular surface on one image. Overall medial compartment articular cartilage volume is maintained. Partially discoid lateral meniscus without discrete tear. Overall lateral compartment articular carti kianna volume is maintained. The patellofemoral compartment articular cartilage volume is maintained. Extensor mechanism is intact. Some edema is noted within the suprapatellar fat pad. Small knee joint effusion may be physiologic. Trace early Valdovinos's cyst measuring 2.0 x 0.7 cm. Nonspecific anterior soft tissue swelling. Normal popliteal artery anatomy in muscle bulk. No suspicious bone marrow replacement. IMPRESSION: 1. Degenerative signal at the junction of the posterior horn and body of the medial meniscus, possibl e associated subtle oblique meniscal tear here. Consider a follow-up exam. 2. Partially discoid lateral meniscus without tear. 3. Tricompartmental articular cartilage is maintained. 4. Small knee joint effusion and trace 2.0 x 0.7 cm Valdovinos cyst. Nonspecific anterior soft tissue swe lling. 5. Some edema noted within the suprapatellar fat pad. Findings may be seen in the setting of fat pad impingement syndrome. Clinically correlate.
== END | disposition home or self-care (01) ==
LOC: RADMRIMAIN 11:04
PROVIDERS: ATTEND Orthopaedic Surgery
DX: M23.321 Other meniscus derangements, posterior horn of medial meniscus, right knee (principal); M23.300 Other meniscus derangements, unspecified lateral meniscus, right knee; M25.461 Effusion, right knee; M79.9 Soft tissue disorder, unspecified; R60.9 Edema, unspecified

== ENCOUNTER → 2020-02-28 | Day surgery (SDC) | payer OTHER ==
[2020-02-26 13:45] VITALS: BMI 27.9
--- NOTE | 2020-02-27 13:55 | HP ---
HISTORY AND PHYSICAL Surgery is scheduled for 02/28/2020. Seven Cameron is a 50-year-old gentleman seen with progressive right knee pain. We discussed options. He elected to proceed with arthroscopy. Consent was obtained. PAST MEDICAL HISTORY: Hypertension and gastroesophageal reflux disease. PAST SURGICAL HISTORY: Right shoulder arthroscopy, left knee arthroscopy. DAILY MEDICATIONS: 1. Amlodipine. 2. Flexeril. 3. Motrin. 4. Prilosec. 5. Zantac. ALLERGIES: STEROIDS. SOCIAL HISTORY: He smokes half a pack of cigarettes daily. PHYSICAL EXAMINATION: Physical evaluation of the right knee: Range of motion 0-130. Mild effusion. Tenderness medial joint line, tenderness lateral joint line. Positive medial Mela's. Positive lateral Mela's. A +1 Linda. Good endpoint. Collateral ligaments are stable. Distal neurovascular exam is intact. Radiographs of the right knee reveal some mild osteoarthritic changes. An MRI of the right knee revealed meniscal tears and osteoarthritic changes. IMPRESSION: 1. Internal derangement right knee with medial meniscal tear. 2. Hypertension. 3. Gastroesophageal reflux disease. 4. Tobacco use. PLAN: Right knee arthroscopy with partial meniscectomy, partial synovectomy and debridement. MMODL / IJN: [id number] /
[~2020-02-28] MED LIST changes: +BUPIVACAINE (PF) 0.25% 30 ML VIAL SQ ONE; +DEXAMETHASONE SOD PHOSPHATE 4 MG/ML 1 ML VIAL IV ONE; +HYDROcodone/APAP 5-325MG 1 EACH TAB ONE; +HYDROcodone/APAP 5-325MG 1 EACH TAB PO ONE; +HYDROmorphone 0.5 MG/0.5 ML SYRINGE IVP PRN; +LACTATED RINGERS 1,000 ML IV ONE; +LIDOCAINE 1% INJ 10MG/ML (20 ML MDV) ONE; +MIDAZOLAM 2 MG/2 ML VIAL IV PRN; +MIDAZOLAM 2 MG/2 ML VIAL ONE; +ONDANSETRON 4 MG/2 ML VIAL ONE; +PROPOFOL 10 MG/ML 20 ML VIAL IV ONE; +SUCCINYLCHOLINE CHLORIDE 100 MG/5 ML SYR IV ONE; +fentaNYL (PF) 50 MCG/ML 2 ML AMP ONE
--- NOTE | 2020-02-28 10:39 | P.OP ---
Date of Procedure: 02/28/20 Preoperative Diagnosis: Internal derangement right knee Postoperative Diagnosis: 1. Tear lateral meniscus right knee 2. Grade 2 chondromalacia medial femoral condyle right knee 3. Medial plica right knee 4. Reactive synovitis medial, lateral and suprapatellar compartments right knee Procedure(s) Performed: 1. Arthroscopic partial lateral meniscectomy right 2. Arthroscopic chondroplasty medial femoral condyle right knee 3. Arthroscopic excision medial plica right knee 4. Arthroscopic partial synovectomy medial, lateral and suprapatellar compartments right knee Anesthesia: CRISTOPHERA, local Surgeon: Kip Gonzalez Estimated Blood Loss (ml): 7 Pathology: none sent Condition: stable Disposition: PACU Indications for Procedure: 50-year-old gentleman seen with progressive right knee pain. After having treatment options discussed, he elected to proceed with arthroscopy. Operative Findings: see description of procedure Description of Procedure: Patient was taken to the operative suite. Patient underwent a general anesthetic by the department of anesthesia. Patient was given preoperative antibiotics. The right lower extremity was placed in a well-padded arthroscopic leg stephens. The right leg was prepped and draped in the normal sterile orthopedic fashion. A lateral parapatellar and suprapatellar incision was made. Trochars were inserted. Arthroscopy was initiated. Suprapatellar pouch revealed diffuse thick reactive synovitis. The patellofemoral joint appeared to articulate congruently. There was grade 1 chondromalacia with no osteochondral tears present. The scope was guided into the medial gutter. There was a plica along the medial femoral condyle which impinged the medial femoral condyle range of motion. The scope was then guided into the medial compartment. A medial parapatellar incision was made. Trocar inserted followed by probe. Medial meniscus was probed and was found to be intact and stable. There were grade 2 chondromalacia changes of medial femoral condyle with some osteochondral fractures present. There was thick reactive synovitis anteriorly. I performed a chondroplasty of the medial femoral condyle. I performed a partial synovectomy decompressing the reactive synovitis anteriorly. The residual osteochondral surface was stable. There was good decompression of the synovitis. Scope and probe were then guided into the intercondylar notch. Cruciates were identified, probed and found to be stable. The scope and probe were then guided into lateral compartment. There was a radial tear mid body lateral meniscus. There were grade 1 chondromalacia changes lateral compartment. It was thick reactive synovitis anteriorly. I performed a partial lateral meniscectomy down to stable meniscal tissue. I performed a partial synovectomy decompressing the reactive synovitis. The residual meniscus was stable. There was good decompression of the synovitis. The scope was in guided back into the suprapatellar compartment. I used a motorized shaver into the suprapatellar compartment. I excised the medial plica. I performed a partial synovectomy decompressing the reactive synovitis. The shaver was removed. I now took the knee through range of motion noted complete resection of the medial plica with no impingement. There was good decompression of the synovitis. I took one more look around the entire knee, no residual debris. Instruments were now removed from the joint. The joint was infiltrated with .25% Marcaine. Steri-Strips were applied to the portal sites. Sterile dressings were applied. The patient was placed into a PANCHO hose. No tourniquet was utilized. The patient was awakened, transferred to a bed and taken to recovery stable satisfactory condition.
[2020-02-28 10:41] VITALS: TEMP 97.9
[2020-02-28 12:20] VITALS: BP 158/88; PULSE 72; RESP 18
== END | disposition home or self-care (01) ==
LOC: OR 07:48
PROVIDERS: ATTEND Orthopaedic Surgery
DX: M23.261 Derangement of other lateral meniscus due to old tear or injury, right knee (principal); M94.261 Chondromalacia, right knee; M65.861 Other synovitis and tenosynovitis, right lower leg; M67.51 Plica syndrome, right knee; Z88.8 Allergy status to other drugs, medicaments and biological substances; I25.2 Old myocardial infarction; I25.10 Atherosclerotic heart disease of native coronary artery without angina pectoris; I10 Essential (primary) hypertension; E78.5 Hyperlipidemia, unspecified; F17.210 Nicotine dependence, cigarettes, uncomplicated; M19.90 Unspecified osteoarthritis, unspecified site; G43.909 Migraine, unspecified, not intractable, without status migrainosus; K21.9 Gastro-esophageal reflux disease without esophagitis; Z79.82 Long term (current) use of aspirin; Z79.1 Long term (current) use of non-steroidal anti-inflammatories (NSAID); Z79.899 Other long term (current) drug therapy
CPT/HCPCS: 29881; J2250; J1100; J0690; J2405; J2001; J3010; J0330; J2704

== ENCOUNTER → 2020-03-06 | Outpatient (CLI) | payer OTHER ==
--- NOTE | 2020-03-06 15:37 | CT ---
EXAMINATION TYPE: CT sinus wo con DATE OF EXAM: 03/06/2020 COMPARISON: None HISTORY: Chronic sinusitis CT DLP: 617 mGycm CONTRAST: None The paranasal sinuses are examined in the axial plane at 2 mm thick sections. Reconstructed images i n the coronal plane were obtained. Maxillary spine is intact. The maxillary sinuses are clear. The ethmoid air cells are clear. The sphenoid sinuses are clear. The frontal sinuses are clear. The septum is evaluated. There is complex septal deviation to the right and left. Septal spurring is evident. The ostiomeatal units are patent. IMPRESSIONS: 1. No suspicious acute or chronic sinusitis changes. 2. Complex septal deviation.
== END | disposition home or self-care (01) ==
LOC: RADCTMAIN 11:36
PROVIDERS: ATTEND Family Medicine
DX: J34.2 Deviated nasal septum (principal); J32.9 Chronic sinusitis, unspecified; Z88.2 Allergy status to sulfonamides; Z88.8 Allergy status to other drugs, medicaments and biological substances
CPT/HCPCS: 70486

== ENCOUNTER → 2020-04-24 | Outpatient (CLI) | payer OTHER ==
[2020-04-24 15:17] LABS: Basophils # (A) 0.1 k/uL (0-0.2); Basophils % (A) 1 %; Eosinophils # (A) 0.2 k/uL (0-0.7); Eosinophils % (A) 2 %; HCT 44.9 % (39.0-53.0); HGB 14.4 gm/dL (13.0-17.5); Lymphocytes # (A) 2.5 k/uL (1.0-4.8); Lymphocytes % (A) 29 %; MCH 28.2 pg (25.0-35.0); MCHC 32.2 g/dL (31.0-37.0); MCV 87.5 fL (80.0-100.0); Mean Platelet Volume 6.9; Monocytes # (A) 0.4 k/uL (0-1.0); Monocytes % (A) 4 %; Neutrophils # (A) 5.3 k/uL (1.3-7.7); Neutrophils % (A) 62 %; Platelet Count 306 k/uL (150-450); RBC 5.13 m/uL (4.30-5.90); RDW 13.2 % (11.5-15.5); WBC 8.5 k/uL (3.8-10.6)
[2020-04-24 15:23] LABS: African American GFR (CKD) >90 (>60 ml/min/1.73 sqM); Anion Gap 7 mmol/L; Blood Urea Nitrogen 17 mg/dL (9-20); Carbon Dioxide 29 mmol/L (22-30); Chloride 103 mmol/L (98-107); Glucose 86 mg/dL (74-99); INR 0.9 (<1.2); Non-African American GFR(CKD) >90 (>60 ml/min/1.73 sqM); Partial Thromboplastin Time 23.1 sec (22.0-30.0); Potassium 5.2 mmol/L (3.5-5.1); Prothrombin Time 9.9 sec (9.0-12.0); Sodium 139 mmol/L (137-145)
== END | disposition home or self-care (01) ==
LOC: LABPAT 14:10
PROVIDERS: ATTEND Surgery
DX: Z01.818 Encounter for other preprocedural examination (principal); M95.4 Acquired deformity of chest and rib; U07.1 COVID-19
CPT/HCPCS: 80051; 82565; 82947; 84520; 85025; 85610; 85730; 93005; 36415; U0003; C9803; U0005

== ENCOUNTER 2020-04-30 10:06 | Day surgery (SDC) | payer OTHER ==
[2020-04-24 14:00] VITALS: BMI 30.1
[~2020-04-30 10:06] MED LIST changes: -BUPIVACAINE (PF) 0.25% 30 ML VIAL SQ ONE; -DEXAMETHASONE SOD PHOSPHATE 4 MG/ML 1 ML VIAL IV ONE; -HYDROcodone/APAP 5-325MG 1 EACH TAB ONE; -HYDROcodone/APAP 5-325MG 1 EACH TAB PO ONE; -HYDROmorphone 0.5 MG/0.5 ML SYRINGE IVP PRN; -LACTATED RINGERS 1,000 ML IV ONE; -LACTATED RINGERS 1,000 ML IV SCH; -LIDOCAINE 1% INJ 10MG/ML (20 ML MDV) ONE; -MIDAZOLAM 2 MG/2 ML VIAL ONE; +ONDANSETRON 4 MG/2 ML VIAL IVP ONE; -ONDANSETRON 4 MG/2 ML VIAL ONE; -PROPOFOL 10 MG/ML 20 ML VIAL IV ONE; -SUCCINYLCHOLINE CHLORIDE 100 MG/5 ML SYR IV ONE; -fentaNYL (PF) 50 MCG/ML 2 ML AMP ONE
[2020-04-30] MEDS: LACTATED RINGERS 1,000 ML IV SCH ×2 (10:50→12:10)
[2020-04-30] MEDS ORDERED: fentaNYL (PF) 50 MCG/ML 2 ML AMP ONE (12:05)
[2020-04-30] MEDS ORDERED: HYDROmorphone (PF) 1 MG/ML ONE (12:05)
[2020-04-30] MEDS ORDERED: GLYCOPYRROLATE 0.2 MG/ML 2 ML VIAL ONE (12:05)
[2020-04-30] MEDS ORDERED: PROPOFOL 10 MG/ML 20 ML VIAL IV ONE (12:05)
[2020-04-30] MEDS ORDERED: ROCURONIUM 10 MG/ML (5 ML VIAL) IV ONE (12:05)
[2020-04-30] MEDS ORDERED: NEOSTIGMINE 1 MG/ML 10 ML VIAL ONE (12:05)
[2020-04-30] MEDS ORDERED: MIDAZOLAM 2 MG/2 ML VIAL ONE (12:05)
[2020-04-30] MEDS ORDERED: SUCCINYLCHOLINE CHLORIDE 100 MG/5 ML SYR IV ONE (12:05)
[2020-04-30 13:22] VITALS: TEMP 97.7
[2020-04-30] MEDS: HYDROmorphone 0.5 MG/0.5 ML SYRINGE IVP PRN ×4 (13:28→13:50)
[2020-04-30 13:32] VITALS: RESP 16
[2020-04-30] MEDS ORDERED: KETOROLAC 15 MG/ML 1 ML VIAL ONE (14:29)
[2020-04-30] MEDS ORDERED: KETOROLAC 15 MG/ML 1 ML VIAL IVP ONE (14:34)
[2020-04-30 14:51] VITALS: PULSE 62
[2020-04-30] MEDS ORDERED: HYDROcodone/APAP 5-325MG 1 EACH TAB ONE (15:16)
[2020-04-30] MEDS ORDERED: HYDROcodone/APAP 5-325MG 1 EACH TAB PO ONE (15:21)
[2020-04-30] MEDS ORDERED: HYDROcodone/APAP 5-325MG 1 EACH TAB PO STA (15:27)
[2020-04-30 15:36] VITALS: BP 160/87
--- NOTE | 2020-04-30 20:50 | OP ---
OPERATIVE REPORT DATE OF SURGERY: 04/30/2020 PREOPERATIVE DIAGNOSES: 1. Prominent xiphoid process. 2. Chest wall nodule. POSTOPERATIVE DIAGNOSES: 1. Prominent xiphoid process. 2. Chest wall nodule. PROCEDURES: 1. Excision of xiphoid process. 2. Excision of chest wall nodule. SURGEON: Tomy Gomez M.D. MANAGER LONG TERM CARE: None. ANESTHESIA: General. ESTIMATED BLOOD LOSS: Minimal. SPECIMENS: 1. Xiphoid process. 2. Chest wall nodule. COMPLICATIONS: None. INDICATION: The patient is a 50-year-old male with a history of multiple medical problems, including multiple lipomas on his chest which have been removed. He presented to the clinic complaining of tenderness at the base of his sternum for the past several years. He states that for the past several months it has been getting worse, and he feels that it is associated with his prominent xiphoid process. Excision of the xiphoid process along with a small palpable nodule was recommended. The risks, benefits and alternatives to this procedure, including but not limited to the risk of infection, bleeding and failure to relieve pain, were discussed at length with the patient. All of his questions were answered. Consent was obtained. FINDINGS: Xiphoid process was slightly prominent. A fatty nodule was excised, which may have been consistent with his history of lipomas. PROCEDURE IN DETAIL: The patient was taken to the operating room and placed supine on the operating table. After induction of anesthesia, he was prepped and draped in the usual sterile fashion. A vertical epigastric incision was created over the xiphoid process. Dissection was taken down through subcutaneous tissue and the xiphoid process was encountered. It was dissected free. It was then excised using a bone cutter. Hemostasis was assured. There were no other palpable nodules found within this incision. Just to the right of this incision, a palpable nodule was noted. A second small vertical incision was created over this prominence. Dissection was taken down and a fatty nodule was excised, which may be consistent with his history of lipomas. Both the xiphoid process and the nodule were sent to Pathology. Hemostasis was assured in both wounds. The epigastric wound was closed in multiple layers. The second incision was also closed in a similar fashion. Sterile dressings were applied. The patient appeared to tolerate the procedure well. There were no immediate complications. He was extubated at completion of the case and returned to the recovery room in stable condition. MMWENDY / IJN: [id number] / CLAIRE
== END 2020-04-30 14:15 | disposition home or self-care (01) ==
LOC: OR 10:06
PROVIDERS: ATTEND Surgery
DX: M95.4 Acquired deformity of chest and rib (principal); D17.1 Benign lipomatous neoplasm of skin and subcutaneous tissue of trunk; E78.5 Hyperlipidemia, unspecified; I25.2 Old myocardial infarction; M19.90 Unspecified osteoarthritis, unspecified site; F43.10 Post-traumatic stress disorder, unspecified; Z87.19 Personal history of other diseases of the digestive system; G43.909 Migraine, unspecified, not intractable, without status migrainosus; Z86.73 Personal history of transient ischemic attack (TIA), and cerebral infarction without residual deficits; Z98.890 Other specified postprocedural states; Z97.2 Presence of dental prosthetic device (complete) (partial); Z79.82 Long term (current) use of aspirin; Z79.891 Long term (current) use of opiate analgesic; Z79.899 Other long term (current) drug therapy; Z88.8 Allergy status to other drugs, medicaments and biological substances
CPT/HCPCS: 84132; 86850; 86900; 86901; 88304; 88311

== ENCOUNTER 2020-08-15 09:48 | Day surgery (SDC) | payer OTHER ==
[2020-08-13 17:12] VITALS: BMI 30.1
--- NOTE | 2020-08-15 06:40 | P.GSHP ---
History of Present Illness H&P Date: 08/15/20 CHIEF COMPLAINT: Chest wall mass HISTORY OF PRESENT ILLNESS: The patient is a 50 year-old male with history of mass along the left chest wall lesion. He presents today for surgical excision. PAST MEDICAL HISTORY: Please see list. PAST SURGICAL HISTORY: Please see list. MEDICATIONS: Please see list. ALLERGIES: Please see list. SOCIAL HISTORY: No illicit drug use FAMILY HISTORY: No reports of Crohn disease or ulcerative colitis. REVIEW OF ORGAN SYSTEMS: CONSTITUTIONAL: No reports of fevers or chills. GI: Denies any blood in stools or constipation. PHYSICAL EXAM: VITAL SIGNS: Stable SKIN: Well perfused. Good skin turgor. 3 cm lesion along the left chest wall. Musculoskeletal: No clubbing cyanosis or edema GENERAL: Well developed and in no acute distress. Pleasant. HEENT: No sclera icterus. Extraocular movements grossly intact. Moist buccal mucosa. Head is atraumatic, normocephalic. Hears conversational speech. No nasal drainage. NECK: Supple without lymphadenopathy. No JV distention. CHEST: Non-labored respirations and equal bilateral excursions. CARDIOVASCULAR: Regular rate and rhythm. Palpable 2+ radial pulses. ABDOMEN: Soft. Non-tender. Nondistended. NEUROLOGIC: No focal or lateralizing signs. PSYCH: Appropriate affect. Alert and oriented to person, place and time. ASSESSMENT: 1. Chest wall mass PLAN: 1. Will proceed of excision of subcutaneous tumor along the left chest wall. 2. DVT prophylaxis. 3. Antibiotic prophylaxis. 4. Time of recovery, at least one week. Past Medical History Past Medical History: Chest Pain / Angina, CVA/TIA, Eye Disorder, GERD/Reflux, GI Bleed, Hearing Disorder / Deafness, Hyperlipidemia, Hypertension, Memory Impairment, Myocardial Infarction (OR), Mitral Valve Prolapse (MVP), Musculoskeletal Disorder, Osteoarthritis (OA) Additional Past Medical History / Comment(s): Concussions x 19, tachycardia, thickening of heart wall, Barretts Esphogus, hiatal hernia w/ lipoma that's pressing on diapraghm, migraines, TIA 2007- affected short term memory. Hx of GI bleed poss D/T malaria Rx in [place]. "[place] Syndrome" with swelling of joints. Tinnitus w/ some hearing loss. RLS. Torn retina left eye. Sl edema BLE. Last Myocardial Infarction Date:: June 14, 2007 History of Any Multi-Drug Resistant Organisms: None Reported Past Surgical History: Heart Catheterization, Orthopedic Surgery Additional Past Surgical History / Comment(s): Left Shoulder Surgery, Right Shoulder Surgery x3, 2 eye surgeries on left eye(VITRECTOMY, TORN RETINA),laser surgery right eye x 2, left forearm foreign body removed, left bicep lipoma removed, left rib cage lipoma removed, vasectomy, Heart Cath X2 (no stents)., arthroscopy bilat knee, I&D cyst left earlobe. Exc xiphoid process, chest nodule 04/30/20. Past Anesthesia/Blood Transfusion Reactions: No Reported Reaction Smoking Status: Current every day smoker - Past Family History Mother Family Medical History: COPD Medications and Allergies Home Medications Medication Instructions Recorded Confirmed Type Cyclobenzaprine [Flexeril] 10 mg PO TID PRN 10/26/15 08/13/20 History Gabapentin [Neurontin] 900 mg PO TID 10/26/15 08/13/20 History Ibuprofen [Motrin] 800 mg PO TID 10/26/15 08/13/20 History Nitroglycerin Sl Tabs [Nitrostat] 0.4 mg SUBLINGUAL Q5M PRN 10/26/15 08/13/20 History Omeprazole 40 mg PO BID 10/26/15 08/13/20 History SUMAtriptan [Imitrex] 50 mg PO DAILY PRN 10/26/15 08/13/20 History Aspirin 81 mg PO HS 10/27/15 08/13/20 History Garlic 1 cap PO HS 10/27/15 08/13/20 History Loratadine [Claritin] 10 mg PO DAILY 10/27/15 08/13/20 History Vitamin B Complex 1 cap PO DAILY 10/27/15 08/13/20 History Ascorbic Acid [Vitamin C] 500 mg PO TID 01/01/17 08/13/20 History Cholecalciferol [Vitamin D3] 2,000 unit PO DAILY 01/01/17 08/13/20 History Melatonin 5 mg PO HS 01/01/17 08/13/20 History Vitamin E 100 unit PO HS 01/01/17 08/13/20 History Magnesium Oxide 400 mg PO DAILY 11/18/17 08/13/20 History Simvastatin [Zocor] 20 mg PO HS 11/18/17 08/13/20 History Ginkgo Biloba [place] Extract [Ginkgo 30 mg PO DAILY 06/17/18 08/13/20 History Biloba] amLODIPine [Norvasc] 2.5 mg PO HS 06/17/18 08/13/20 History traMADol HCL [Ultram ER] 100 mg PO QID PRN 06/17/18 08/13/20 History Lidocaine 5% Oint [Xylocaine 5% 1 applic TOPICAL DAILY PRN 12/20/18 08/13/20 History Oint] Testosterone Booster 2 tab PO HS 08/03/19 08/13/20 History Lidocaine 5% Patch [Lidoderm] 1 patch TOPICAL HS PRN 01/18/20 08/13/20 History Multivitamins, Thera [Multivitamin 1 tab PO DAILY 04/24/20 08/13/20 History (formulary)] lamoTRIgine [LaMICtal] 200 mg PO HS 04/24/20 08/13/20 History hydrOXYzine pamoate [hydrOXYzine 50 mg PO BID 08/13/20 08/13/20 History PAMOATE] Allergies Allergy/AdvReac Type Severity Reaction Status Date / Time adhesive AdvReac rash if Verified 08/13/20 16:29 left on for extended period prednisone AdvReac PTSD- Verified 08/13/20 16:29 ANGRY .- cannot take oysterman. topiramate [From Topamax] AdvReac increased Verified 08/13/20 16:29 anxiety
[~2020-08-15 09:48] MED LIST changes: +ACETAMINOPHEN TAB 500 MG TAB PO PRN; +HEPARIN SODIUM,PORCINE/PF 5,000 UNIT/0.5 ML SYRINGE SQ PRN; +HYDROmorphone 0.5 MG/0.5 ML SYRINGE IVP PRN; +LACTATED RINGERS 1,000 ML IV SCH; -LIDOCAINE 1% (10MG/ML) FOR IV START INTRADERMA PRN; +MELOXICAM 7.5 MG TAB PO PRN; -MIDAZOLAM 2 MG/2 ML VIAL IV PRN; -ONDANSETRON 4 MG/2 ML VIAL IVP ONE; +Pre Op ABX Message 1 EACH MISC MISCELLANE ONE
[2020-08-15 10:16] VITALS: TEMP 97.7
[2020-08-15] MEDS ORDERED: ONDANSETRON 4 MG/2 ML VIAL ONE (10:28)
[2020-08-15] MEDS ORDERED: ONDANSETRON 4 MG/2 ML VIAL IVP ONE (10:33)
[2020-08-15] MEDS ORDERED: DEXAMETHASONE SOD PHOSPHATE 4 MG/ML 1 ML VIAL IVP ONE (10:34)
[2020-08-15] MEDS ORDERED: diphenhydrAMINE 50 MG/ML 1 ML VIAL ONE (12:15)
[2020-08-15] MEDS ORDERED: fentaNYL (PF) 50 MCG/ML 2 ML AMP ONE (12:15)
[2020-08-15] MEDS ORDERED: MIDAZOLAM 2 MG/2 ML VIAL ONE (12:15)
[2020-08-15] MEDS ORDERED: PROPOFOL 10 MG/ML 20 ML VIAL IV ONE (12:15)
[2020-08-15] MEDS ORDERED: KETAMINE 10 MG/ML 20 ML VIAL ONE (12:15)
[2020-08-15] MEDS ORDERED: LIDOCAINE 2%-EPI 1:100,000 20 ML VIAL SQ ONE (12:44)
--- NOTE | 2020-08-15 13:26 | P.OP ---
Date of Procedure: 08/15/20 Description of Procedure: SURGEON: SHELBY HAMPTON MD DOUBLING MACHINE OPERATOR: None. PREOPERATIVE DIAGNOSES: 1. Chest wall mass, left 2. Chronic pain syndrome 3. Hypertensive heart disease 4. History of myocardial infarction 5. Gastroesophageal reflux disease 6. Hyperlipidemia 7. Ischemic cardiomyopathy 8. Neuropathy 9. Mitral valve prolapse POSTOPERATIVE DIAGNOSES: 1. Chest wall mass, left 2. Chronic pain syndrome 3. Hypertensive heart disease 4. History of myocardial infarction 5. Gastroesophageal reflux disease 6. Hyperlipidemia 7. Ischemic cardiomyopathy 8. Neuropathy 9. Mitral valve prolapse PROCEDURES PERFORMED: 1. Excision of deep subcutaneous left inferior chest wall mass, 3 cm. 2. Intermediate closure of 5 cm along the chest wall. ANESTHESIA: IV sedation, local ESTIMATED BLOOD LOSS: 1 mL. SPECIMENS REMOVED: Chest wall mass COMPLICATIONS: None. FINDINGS: 1. Mass along left inferior chest excised to fascia, 3 cm. INDICATIONS: The patient is a 50-year-old male with recurrent mass along the left chest wall. Now he presents for surgical intervention. Benefits and risks of surgical intervention were described including bleeding, infection. Informed consent was obtained. DESCRIPTION OR PROCEDURE: Patient was brought into the operating room, laid in supine position. After general induction, the chest was prepped and draped in a standard sterile fashion with ChloraPrep. Timeout protocol was confirmed with the surgical team regarding the patient's name, procedure to be performed including preoperative medications. DVT prophylaxis was confirmed. Ioban was placed to minimize contamination from skin floor. A field block was placed of the left inferior chest wall at the area of concern. An elliptical incision using #15 blade was made transversely along the marking into the dermis and subcutaneous tissue. Electro-Bovie cartridge was used to excise the mass of 3 cm down to the fascia. 0 Vicryl for the deep subcutaneous tissue followed by 3-0 Vicryl was placed in interrupted fashion. 4-0 Monocryl in a running subcuticular fashion was placed along the dermis for 5 cm incision. The skin was cleansed and Exofin tape was applied followed by Optifoam. Local anesthetic was placed. At the end of the procedure, needle, sponge, and instrument count was verified correct by avionics systems technician. The patient was awoken and taken to the second stage postanesthesia care unit. The patient tolerated the procedure well. Plan - Discharge Summary Discharge Rx Participant: Yes New Discharge Prescriptions: Continue Gabapentin [Neurontin] 900 mg PO TID Cyclobenzaprine [Flexeril] 10 mg PO TID PRN PRN Reason: Pain SUMAtriptan [Imitrex] 50 mg PO DAILY PRN PRN Reason: Headache Omeprazole 40 mg PO BID Nitroglycerin Sl Tabs [Nitrostat] 0.4 mg SUBLINGUAL Q5M PRN PRN Reason: Chest Pain Ibuprofen [Motrin] 800 mg PO TID Loratadine [Claritin] 10 mg PO DAILY Aspirin 81 mg PO HS Vitamin B Complex 1 cap PO DAILY Garlic 1 cap PO HS Vitamin E 100 unit PO HS Cholecalciferol [Vitamin D3 (25 Mcg = 1000 Iu)] 2,000 unit PO DAILY Ascorbic Acid [Vitamin C] 500 mg PO TID Melatonin 5 mg PO HS Magnesium Oxide 400 mg PO DAILY Simvastatin [Zocor] 20 mg PO HS amLODIPine [Norvasc] 2.5 mg PO HS traMADol HCL [Ultram ER] 100 mg PO QID PRN PRN Reason: Pain Ginkgo Biloba [place] Extract [Ginkgo Biloba] 30 mg PO DAILY Lidocaine 5% Oint [Xylocaine 5% Oint] 1 applic TOPICAL DAILY PRN PRN Reason: Pain Testosterone Booster 2 tab PO HS Lidocaine 5% Patch [Lidoderm 5% Patch] 1 patch TOPICAL HS PRN PRN Reason: Pain lamoTRIgine [LaMICtal] 200 mg PO HS Multivitamins, Thera [Multivitamin (formulary)] 1 tab PO DAILY hydrOXYzine pamoate [hydrOXYzine PAMOATE] 50 mg PO BID Discharge Medication List Cyclobenzaprine [Flexeril] 10 mg PO TID PRN 10/26/15 [History] Gabapentin [Neurontin] 900 mg PO TID 10/26/15 [History] Ibuprofen [Motrin] 800 mg PO TID 10/26/15 [History] Nitroglycerin Sl Tabs [Nitrostat] 0.4 mg SUBLINGUAL Q5M PRN 10/26/15 [History] Omeprazole 40 mg PO BID 10/26/15 [History] SUMAtriptan [Imitrex] 50 mg PO DAILY PRN 10/26/15 [History] Aspirin 81 mg PO HS 10/27/15 [History] Garlic 1 cap PO HS 10/27/15 [History] Loratadine [Claritin] 10 mg PO DAILY 10/27/15 [History] Vitamin B Complex 1 cap PO DAILY 10/27/15 [History] Ascorbic Acid [Vitamin C] 500 mg PO TID 01/01/17 [History] Cholecalciferol [Vitamin D3 (25 Mcg = 1000 Iu)] 2,000 unit PO DAILY 01/01/17 [History] Melatonin 5 mg PO HS 01/01/17 [History] Vitamin E 100 unit PO HS 01/01/17 [History] Magnesium Oxide 400 mg PO DAILY 11/18/17 [History] Simvastatin [Zocor] 20 mg PO HS 11/18/17 [History] Ginkgo Biloba [place] Extract [Ginkgo Biloba] 30 mg PO DAILY 06/17/18 [History] amLODIPine [Norvasc] 2.5 mg PO HS 06/17/18 [History] traMADol HCL [Ultram ER] 100 mg PO QID PRN 06/17/18 [History] Lidocaine 5% Oint [Xylocaine 5% Oint] 1 applic TOPICAL DAILY PRN 12/20/18 [History] Testosterone Booster 2 tab PO HS 08/03/19 [History] Lidocaine 5% Patch [Lidoderm 5% Patch] 1 patch TOPICAL HS PRN 01/18/20 [History] Multivitamins, Thera [Multivitamin (formulary)] 1 tab PO DAILY 04/24/20 [History] lamoTRIgine [LaMICtal] 200 mg PO HS 04/24/20 [History] hydrOXYzine pamoate [hydrOXYzine PAMOATE] 50 mg PO BID 08/13/20 [History] Follow up Appointment(s)/Referral(s): Shelby Hampton MD [STAFF PHYSICIAN] - 08/20/20 Patient Instructions/Handouts: Excision of Skin Lesion (DC) Activity/Diet/Wound Care/Special Instructions: DO NOT REMOVE DRESSING. No lifting over 10 pounds in 1 weeks until August 22July shower. No bath tub soaks for 2 weeks until August 29 Diet as tolerated. Use Tylenol and ibuprofen scheduled for the next 24-48 hours for best pain relief. Use ice along incisions for today to prevent swelling. Discharge Disposition: HOME SELF-CARE
[2020-08-15 13:30] VITALS: BP 117/69; PULSE 72; RESP 16
== END 2020-08-15 13:50 | disposition home or self-care (01) ==
LOC: OR 09:48
PROVIDERS: ATTEND Surgery Plastic and Reconstructive Surgery
DX: D17.1 Benign lipomatous neoplasm of skin and subcutaneous tissue of trunk (principal); K21.9 Gastro-esophageal reflux disease without esophagitis; E78.5 Hyperlipidemia, unspecified; R41.3 Other amnesia; G89.4 Chronic pain syndrome; I11.9 Hypertensive heart disease without heart failure; I25.5 Ischemic cardiomyopathy; G62.9 Polyneuropathy, unspecified; I25.2 Old myocardial infarction; H91.8X9 Other specified hearing loss, unspecified ear; I34.1 Nonrheumatic mitral (valve) prolapse; M19.90 Unspecified osteoarthritis, unspecified site; K44.9 Diaphragmatic hernia without obstruction or gangrene; G43.909 Migraine, unspecified, not intractable, without status migrainosus; F17.210 Nicotine dependence, cigarettes, uncomplicated; K22.70 Barrett's esophagus without dysplasia; F90.9 Attention-deficit hyperactivity disorder, unspecified type; M25.40 Effusion, unspecified joint; H93.19 Tinnitus, unspecified ear; G25.81 Restless legs syndrome; R00.0 Tachycardia, unspecified; Z87.19 Personal history of other diseases of the digestive system; Z86.73 Personal history of transient ischemic attack (TIA), and cerebral infarction without residual deficits; Z98.890 Other specified postprocedural states; Z82.5 Family history of asthma and other chronic lower respiratory diseases; Z97.2 Presence of dental prosthetic device (complete) (partial); Z79.1 Long term (current) use of non-steroidal anti-inflammatories (NSAID); Z79.82 Long term (current) use of aspirin; Z79.890 Hormone replacement therapy; Z79.899 Other long term (current) drug therapy; Z88.8 Allergy status to other drugs, medicaments and biological substances; Z91.09 Other allergy status, other than to drugs and biological substances
CPT/HCPCS: 21552; 88305; J2250; J1200; J1100; J0690; J2405; J3010; J2704

== ENCOUNTER → 2020-10-02 | Outpatient (CLI) | payer OTHER ==
--- NOTE | 2020-10-02 12:06 | CT ---
EXAMINATION TYPE: CT sinus wo con DATE OF EXAM: 10/02/2020 COMPARISON: 03/06/2020 HISTORY: sinusitis CT DLP: [address] of the paranasal sinuses was performed in the axial and coronal planes. Bone and soft tissue settings are submitted. The paranasal sinuses demonstrate normal aeration and development. Mucosal thickening of scattered ethmoid air cells. Remaining paranasal sinuses are well-aerated. No a ir-fluid levels seen. The osteal meatal units are patent bilaterally. The nasal septum is midline. No bony destructive changes are seen within the field of view. IMPRESSION: Mild chronic ethmoidal sinusitis.
== END | disposition home or self-care (01) ==
LOC: RADCTMAIN 10:03
PROVIDERS: ATTEND Family Medicine
DX: J32.2 Chronic ethmoidal sinusitis (principal)
CPT/HCPCS: 70486

== ENCOUNTER → 2021-02-14 | Outpatient (CLI) | payer OTHER ==
--- NOTE | 2021-02-14 14:28 | XR ---
Left shoulder HISTORY: M 25.512 3 views of the left shoulder There is arthropathy at the acromioclavicular joint. Bone mineralization, joint spaces and alignment are maintained. Left lung apex as visualized is normal. No fracture or dislocation. IMPRESSION: Acromioclavicular joint arthropathy
== END | disposition home or self-care (01) ==
LOC: RADXRMAIN 09:02
PROVIDERS: ATTEND Family Medicine
DX: M19.012 Primary osteoarthritis, left shoulder (principal)

== ENCOUNTER → 2021-03-19 | Outpatient (CLI) | payer OTHER ==
--- NOTE | 2021-03-19 15:02 | CT ---
EXAMINATION TYPE: CT angio upper extremity RT DATE OF EXAM: 03/19/2021 2:28 PM COMPARISON: none HISTORY: right upper arm claudication CT DLP: 2468 mGycm Automated exposure control for dose reduction was used. TECHNIQUE: Performed without and with IV Contrast, patient injected with 100 mL of Isovue 370. . FINDINGS: Emphysematous changes involving the visualized portion of the lung field. Noncontrast imaging demonstrates no significant atherosclerotic plaque at the subclavian artery. The visualized portion of the aortic arch appears of normal caliber and patent with no significant at herosclerotic plaque. Visualized brachiocephalic artery is patent. Proximal portion of the common car otid artery is patent. Visualized subclavian artery is patent. Visualized portions of the axial artery and brachial arteries are patent. Radial and ulnar arteries are somewhat diminutive in size but appear to be patent with n o significant stenosis and are seen to the level of the wrist. Interosseous arteries limited due to a rtifact and diminutive size. Likely segmentally seen to be patent. Beyond this level are not well see n which may be technical. 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 The right subclavian, axillary and brachial arteries are widely patent. No significant stenosis. 2. Radial and ulnar arteries are seen to level the wrist to be diminutive in size and patent. 3. Emphysema.
== END | disposition home or self-care (01) ==
LOC: RADCTMAIN 12:54
PROVIDERS: ATTEND Family Medicine
DX: J43.9 Emphysema, unspecified (principal)
CPT/HCPCS: 73206; Q9967

== ENCOUNTER → 2021-03-28 | Outpatient (CLI) | payer OTHER ==
--- NOTE | 2021-03-28 14:25 | CT ---
CT angiogram of the abdominal aorta with runoff HISTORY: Left iliac stenosis Helical acquisition obtained from the lung bases through the pelvis pre- and postadministration of 12 5 cc Isovue-370. Automated exposure control for dose reduction. Three-dimensional reconstructions wer e performed on an alternate workstation and reviewed. No comparisons. The abdominal aorta is nonaneurysmal and is patent. The celiac axis, superior mesenteric artery, master l arteries are patent, circumaortic left renal vein is noted incidentally. Inferior mesenteric artery is patent. At the aortic bifurcation there is some atheromatous change, there is a hemodynamic signi ficant stenosis of the proximal common iliac artery on the left, iliac artery is somewhat diffusely r educed in caliber. The external iliac and internal iliac arteries are patent bilaterally. Right commo n iliac artery shows some mild atheromatous change at its origin. The common femoral, deep and superf icial femoral arteries are patent. Popliteal vessels, trifurcation vasculature patent bilaterally, tr ifurcation vessels are enhancing peripherally, two-vessel outflow into the foot bilaterally. There ar e some subcutaneous edema changes present bilaterally within the lower extremities. Lung bases are clear, no pleural or pericardial effusion. Liver shows low attenuation possibly due to hepatic steatosis. Gallbladder, spleen, adrenal gland, kidneys, pancreas are stable. Malrotation rig ht kidney is present. Bowel is within normal limits. Prostate shows calcification. Urinary bladder is distended with urine. Diverticular changes noted in the colon. Subxiphoid region shows abdominal wal l hernia containing fat. Degenerative disc changes present in the visualized spine. IMPRESSION: Common iliac artery stenosis on the left appears hemodynamically significant
== END | disposition home or self-care (01) ==
LOC: RADCTMAIN 12:42
DX: I70.8 Atherosclerosis of other arteries (principal)
CPT/HCPCS: 75635; Q9967

== ENCOUNTER → 2021-04-16 | Outpatient (CLI) | payer OTHER ==
[~2021-04-16] MED LIST changes: -ACETAMINOPHEN TAB 500 MG TAB PO PRN; -HEPARIN SODIUM,PORCINE/PF 5,000 UNIT/0.5 ML SYRINGE SQ PRN; -HYDROmorphone 0.5 MG/0.5 ML SYRINGE IVP PRN; -LACTATED RINGERS 1,000 ML IV SCH; -MELOXICAM 7.5 MG TAB PO PRN; -Pre Op ABX Message 1 EACH MISC MISCELLANE ONE; +REGADENOSON 0.4 MG/5 ML SYRINGE IV PRN
--- NOTE | 2021-04-16 11:31 | ECHOF ---
Referral Reason:R06.00 dyspnea MEASUREMENTS -------- HEIGHT: 182.9 cm WEIGHT: 102.1 kg BP: RVIDd: 3.4 cm (< 3.3) IVSd: 1.3 cm (0.6 - 1.1) LVIDd: 4.7 cm (3.9 - 5.3) LVPWd: 1.1 cm (0.6 - 1.1) IVSs: 1.4 cm LVIDs: 3.0 cm LVPWs: 1.6 cm LA Diam: 3.7 cm (2.7 - 3.8) LAESV Index (A-L): 20.35 ml/m MV EXCURSION: 21.171 mm (> 18.000) MV EF SLOPE: 106 mm/s (70 - 150) EPSS: 0.2 cm MV E Rahul: 0.64 m/s MV DecT: 305 ms MV A Rahul: 0.75 m/s MV E/A Ratio: 0.85 RAP: 5.00 mmHg RVSP: 12.80 mmHg FINDINGS -------- Sinus rhythm. This was a technically good study. LV size, wall thickness and systolic function are normal, with an EF greater than 55%. The left gui tricular size is normal. The right ventricle is normal in size. The left atrial size is normal. The right atrial size is normal. There is mild aortic valve sclerosis. Mild mitral regurgitation is present. Mild tricuspid regurgitation present. Right ventricular systolic pressure is normal at < 35 mmHg. There is no pulmonic regurgitation present. There is no pericardial effusion. CONCLUSIONS -------- 1. LV size, wall thickness and systolic function are normal, with an EF greater than 55%. 2. The left ventricular size is normal. 3. The right ventricle is normal in size. 4. The left atrial size is normal. 5. The right atrial size is normal. 6. There is mild aortic valve sclerosis. 7. Mild mitral regurgitation is present. 8. Mild tricuspid regurgitation present. 9. There is no pericardial effusion. SUBSTATION OPERATOR TRANSFORMING: Mandy Son RDCS
--- NOTE | 2021-04-16 11:36 | NM ---
EXAMINATION TYPE: NM stress lexiscan cardiolite DATE OF EXAM: 04/16/2021 COMPARISON: NONE HISTORY: Dyspnea TECHNIQUE: After the intravenous administration of 9.55 mCi Tc 99m Sestamibi - Cardiolite resting SP ECT images acquired 60 minutes post injection. The patient received 0.4mg Lexiscan, 24.5 mCi Tc 99m Sestamibi - Stress images obtained [address] injection FINDINGS: Review of stress and rest SPECT images demonstrates decreased uptake along the inferior wall left gui tricle on stress and rest images towards the base of the heart, more towards the apex there is some d ecreased uptake on stress as compared to rest images. Gated analysis shows normal wall motion with a n estimated left ventricular ejection fraction of 69 %. IMPRESSION: Findings may be indicative of prior infarct with pharmacologically induced left ventricular myocardia l grace-infarct ischemia. Consider echocardiographic correlation for elevated ejection fraction
--- NOTE | 2021-04-16 20:00 | EST ---
EXERCISE STRESS DATE OF STUDY: 04/16/2021 AGE: 51 SEX: M HT: 5'10" WT: 225 lbs. PROTOCOL: Lexiscan Cardiolite STAGE: NA DURATION OF EXERCISE: NA HEART RATE REST: 72 BLOOD PRESSURE REST: 175/84 MAXIMUM HEART RATE ACHIEVED: 92 MAXIMUM BLOOD PRESSURE: 177/84 85% MPHR: 143 100% MPHR: 168 METS: NA INDICATIONS: Chest pain. CLINICAL INFORMATION: STRESS DATA: Heart rate is 72, pressure 175/84 mmHg. Baseline EKG showed sinus mechanism with RBBB. The patient was given 0.4 mg of Lexiscan over 15 seconds per protocol. Max heart rate was 92 beats per minute. Maximum pressure was 175/84 mmHg. Clinically the patient did not have any symptoms and the EKG did not show any significant ST or T-wave abnormalities concerning for ischemia. CONCLUSION: 1. Nondiagnostic electrocardiogram stress testing in response to Lexiscan. 2. Please follow up on the Cardiolite portion on a separate report from Radiology. MMODL / IJN: [id number] /
== END | disposition home or self-care (01) ==
LOC: RADNMMAIN 08:12
PROVIDERS: ATTEND Physician Assistant
DX: I08.3 Combined rheumatic disorders of mitral, aortic and tricuspid valves (principal)
CPT/HCPCS: 93017; 93306; 78452; A9500; J2785

== ENCOUNTER → 2021-05-05 | Outpatient (CLI) | payer OTHER ==
--- NOTE | 2021-05-06 01:58 | MR ---
EXAMINATION TYPE: MR shoulder LT wo con DATE OF EXAM: 05/05/2021 COMPARISON: None HISTORY: no prior MR, left shoulder pain for 8 months Images obtained of the left shoulder without contrast. The subscapularis tendon is intact. There is a small shoulder joint effusion. Biceps tendon is intact . There is some thickening and increased signal at the AC joint. There is increased fluid within the AC joint space. There is mild subacromial impingement on the supraspinatus tendon and muscle. There are small areas of increased signal in the supraspinatus tendon. There is no full-thickness tear. There is no retraction. The humeral head is intact. Glenoid sukumar appear intact. IMPRESSION: No evidence of rotator cuff tear. There is evidence for some minimal edema in the supraspinatus tendo n. Moderate spurring at the AC joint with increased fluid signal and impingement on the supraspinatus mu scle and tendon. No fracture.
== END | disposition home or self-care (01) ==
LOC: RADMRIMAIN 12:50
PROVIDERS: ATTEND Orthopaedic Surgery
DX: M25.712 Osteophyte, left shoulder (principal); M25.812 Other specified joint disorders, left shoulder

== ENCOUNTER → 2021-05-14 | Outpatient (CLI) | payer OTHER ==
[2021-05-15 01:20] LABS: Basophils # (A) 0.05 X 10*3/uL (0.00-0.10); Basophils % (A) 0.6 %; Eosinophils # (A) 0.23 X 10*3/uL (0.04-0.35); Eosinophils % (A) 2.9 %; HCT 45.1 % (39.6-50.0); Immature Grans, Automated 0.4 %; Lymphocytes # (A) 2.59 X 10*3/uL (0.90-5.00); Lymphocytes % (A) 32.2 %; MCH 28.7 pg (27.0-32.0); MCV 92.4 fL (80.0-97.0); Mean Platelet Volume 10.9 fL (9.5-12.2); Monocytes # (A) 0.57 X 10*3/uL (0.20-1.00); Monocytes % (A) 7.1 %; NRBC Per 100 WBC 0 /100 WBCS (0.0-0.0); Neutrophils # (A) 4.58 X 10*3/uL (1.80-7.70); Neutrophils % (A) 56.8 %; Platelet Count 296 X 10*3/uL (140-440); RBC 4.88 X 10*6/uL (4.40-5.60); RDW 13.7 % (11.5-14.5); WBC 8.05 X 10*3/uL (4.50-10.00)
[2021-05-15 02:09] LABS: African American GFR (CKD) 113.4 (60.0-200.0); Anion Gap 11.7 mmol/L (10.00-18.00); Blood Urea Nitrogen 12.5 mg/dL (9.0-27.0); Carbon Dioxide 23.3 mmol/L (20.0-27.5); Non-African American GFR(CKD) 97.9 (60.0-200.0); Potassium 4.8 mmol/L (3.5-5.5)
== END | disposition home or self-care (01) ==
LOC: LABPAT 12:07
PROVIDERS: ATTEND Internal Medicine Interventional Cardiology
DX: Z01.812 Encounter for preprocedural laboratory examination (principal); I74.3 Embolism and thrombosis of arteries of the lower extremities; R94.39 Abnormal result of other cardiovascular function study
CPT/HCPCS: 80051; 82565; 84520; 85025

== ENCOUNTER 2021-05-20 09:16 | Day surgery (SDC) | payer OTHER ==
[2021-05-16 16:54] VITALS: BMI 33.7
[~2021-05-20 09:16] MED LIST changes: +ALPRAZolam 0.25 MG TAB PO PRN; +ALPRAZolam 0.5 MG TAB PO PRN; +ASPIRIN 325 MG TAB PO STA; +HEPARIN SODIUM,PORCINE 10,000 UNIT in SODIUM CHLORIDE 0.9% 1,000 ML IRRIGATION PRN; +HEPARIN SODIUM,PORCINE 2,500 UNIT in SODIUM CHLORIDE 0.9% 250 ML IRRIGATION PRN; +NITROGLYCERIN SL TABS 0.4 MG TAB SUBLINGUAL PRN; -REGADENOSON 0.4 MG/5 ML SYRINGE IV PRN
[2021-05-20] MEDS ORDERED: SODIUM CHLORIDE 0.9% 1,000 ML IV ONE (09:36)
[2021-05-20] MEDS: MIDAZOLAM 2 MG/2 ML VIAL IV ONE ×2 (11:11→11:41)
[2021-05-20] MEDS ORDERED: LIDOCAINE 1% INJ 10MG/ML (20 ML MDV) SQ ONE (11:12)
[2021-05-20] MEDS: fentaNYL (PF) 50 MCG/ML 2 ML AMP IV ONE ×2 (11:13→11:53)
[2021-05-20] MEDS ORDERED: VERAPAMIL SYRINGE (5 MG/10 ML) INTRAARTER ONE (11:15)
[2021-05-20] MEDS ORDERED: HEPARIN SODIUM 1,000 UN/ML (10ML VL) IV ONE (11:21)
[2021-05-20] MEDS: HEPARIN SODIUM 1,000 UN/ML (10ML VL) IV ONE ×2 (11:34→11:52)
[2021-05-20] MEDS ORDERED: IOPAMIDOL-370 100ML BTL INJ ONE ×2 (11:44→12:19)
[2021-05-20] MEDS: NITROGLYCERIN 1000MCG/10ML SYRINGE INTRACORON ONE ×2 (11:59→12:01)
[2021-05-20] MEDS ORDERED: CLOPIDOGREL 75 MG TAB PO ONE (12:18)
[2021-05-20] MEDS ORDERED: ATROPINE SULFATE 0.1 MG/ML 10ML SYRINGE IV PRN (12:21)
[2021-05-20] MEDS ORDERED: RX INFO: IV CONTRAST WAS GIVEN 1 EACH MISC MISCELLANE PRN (12:21)
[2021-05-20] MEDS ORDERED: NITROGLYCERIN SL TABS 0.4 MG TAB SUBLINGUAL PRN (12:21)
[2021-05-20] MEDS ORDERED: ZOLPIDEM 5 MG TAB PO PRN (12:21)
[2021-05-20] MEDS ORDERED: MAG HYDROX/AL HYDROX/SIMETH 30 ML CUP PO PRN (12:21)
[2021-05-20] MEDS ORDERED: traMADol 50 MG TAB PO PRN (12:24)
--- NOTE | 2021-05-20 14:13 | CC ---
CARDIAC CATHETERIZATION REPORT DATE OF SERVICE: 05/20/2021. PROCEDURES: 1. Left heart catheterization and coronary angiography. 2. Percutaneous transluminal coronary angioplasty and stenting of mid circumflex into the first obtuse marginal branch of circumflex with drug-eluting stent. PERFORMED BY: Dr. Riley Ramirez. Moderate conscious sedation time was 53 minutes. Patient was administered Versed. Oxygen saturation, hemodynamics and EKG were monitored closely. CLINICAL INFORMATION: Mr. Seven Cameron is a 51-year-old gentleman with a history of hypertension, hyperlipidemia, peripheral artery disease with left iliac stenosis and also left subclavian narrowing of a moderate degree. He smokes and also has posttraumatic stress syndrome. He has been having symptoms of chest tightness and pressure, and stress test revealed inferior wall reversible defect. He was therefore advised cardiac cath prior to any intervention. Risks, benefits, options, rationale were explained to the patient. PROCEDURE NOTE: Under local anesthesia and strict aseptic precautions, a 6-Indonesian introducer was placed in the right radial artery. Using a JL3.5 and JR4 catheters I performed coronary angiography, and the same right catheter was used to check LV pressures. Following the procedure I noted that he had a significant 95% stenosis in the mid circumflex extending into the first obtuse marginal. This was a bifurcation lesion and the continuation of circumflex was not as large. I recommended intervention that was performed in the same setting. CARDIAC CATHETERIZATION FINDINGS: The left ventricular end-diastolic pressure was about 14 to 15 mmHg without any gradient across the aortic valve. RIGHT CORONARY ARTERY: Dominant vessel. No significant disease; about a 30% to 35% percent narrowing in the proximal portion. Distally bifurcates into large PDA and PLV, both of which supply a sizable amount of myocardium. No significant disease. LEFT MAIN CORONARY ARTERY: Long, patent, disease-free vessel that bifurcates into LAD and circumflex. LEFT ANTERIOR DESCENDING CORONARY ARTERY: Good-caliber vessel extends along the anterior wall, gives off septal and diagonal branches and runs all the way to the apex, curves over the apex to supply the inferoapical portion of left ventricle. No significant disease in the LAD system. LEFT POSTERIOR CIRCUMFLEX CORONARY ARTERY: This is a nondominant vessel, has a lesion of 95% in the mid portion and then it gives off an obtuse marginal and continues in the AV groove. The obtuse marginal branch is slightly larger than the continuation of circumflex. This appears to be the culprit lesion. LV gram was not performed. FINAL IMPRESSION: This patient has a right-dominant system, slightly elevated filling pressures, no gradient, 95% mid circumflex lesion. Dominant RCA has 35% to 40% narrowing. LAD is free of significant disease. RECOMMENDATIONS: I recommended PCI of circumflex and performed this in the same setting. PCI PROCEDURE DETAILS: Initially I used a JL4 catheter, switched over to a Voda 3.5 guide catheter, had decent guide support. A run-through wire was advanced and positioned in the main circumflex distally, and another run-through wire, a long one, was also used to place in the obtuse marginal branch of circumflex. Predilatation was performed with a 2.5 caliber 12 mm NC Trek balloon. I then deployed a 2.75 caliber Xience stent at 13 atmospheres. Patient had mild chest discomfort. No EKG changes. Excellent angiographic result was achieved. I noted that there was no compromise of flow in the main circumflex, and obtuse marginal had a remarkable improvement in angiographic appearance and flow. There was also a mid circumflex lesion of about 40%, best seen in the ENGLISH caudal projection, but I felt this was not significant and it was no more than a 40% mid circumflex lesion just proximal to the area where I stented. Excellent angiographic result without complication was achieved. The results were discussed with the patient and son, and he will be discharged tomorrow if he remains stable. He received 600 mg of Plavix. ACT intra procedure was 259. The saturation in the fingers of the right hand after the TR band was 96%. TR band was applied with 11 mL of air in it. MMODL / IJN: [id number] /
[2021-05-20] MEDS: SODIUM CHLORIDE 0.9% 1,000 ML in EMPTY BAG 1 BAG IV SCH ×3 (15:10→16:53)
[2021-05-20] MEDS: GABAPENTIN 300 MG CAP PO SCH ×2 (16:51→22:17)
[2021-05-20] MEDS ORDERED: lamoTRIgine 100 MG TAB PO SCH (21:00)
[2021-05-20] MEDS ORDERED: ATORVASTATIN 80 MG TAB PO SCH (21:00)
[2021-05-20] MEDS ORDERED: amLODIPine 5 MG TAB PO SCH (21:00)
[2021-05-20] MEDS ORDERED: MELATONIN 5 MG TABLET PO SCH (21:00)
[2021-05-21] MEDS: SODIUM CHLORIDE 0.9% 1,000 ML in EMPTY BAG 1 BAG IV SCH ×2 (02:44→02:45)
[2021-05-21] MEDS ORDERED: PANTOPRAZOLE 40 MG TABLET PO SCH (07:30)
[2021-05-21 07:32] LABS: Basophils % (A) 1 %; Eosinophils # (A) 0.3 k/uL (0-0.7); Eosinophils % (A) 4 %; HCT 42.9 % (39.0-53.0); HGB 13.8 gm/dL (13.0-17.5); Lymphocytes # (A) 2.1 k/uL (1.0-4.8); Lymphocytes % (A) 31 %; MCH 29.3 pg (25.0-35.0); MCHC 32.3 g/dL (31.0-37.0); MCV 90.8 fL (80.0-100.0); Mean Platelet Volume 7.5; Monocytes # (A) 0.3 k/uL (0-1.0); Monocytes % (A) 5 %; Neutrophils % (A) 58 %; Platelet Count 214 k/uL (150-450); RBC 4.72 m/uL (4.30-5.90); RDW 13.2 % (11.5-15.5); WBC 6.9 k/uL (3.8-10.6)
[2021-05-21 07:44] LABS: African American GFR (CKD) >90 (>60 ml/min/1.73 sqM); Anion Gap 2 mmol/L; Blood Urea Nitrogen 14 mg/dL (9-20); Calcium 8.5 mg/dL (8.4-10.2); Carbon Dioxide 26 mmol/L (22-30); Chloride 110 mmol/L (98-107); Glucose 98 mg/dL (74-99); Non-African American GFR(CKD) >90 (>60 ml/min/1.73 sqM); Potassium 4.2 mmol/L (3.5-5.1); Sodium 138 mmol/L (137-145)
[2021-05-21] MEDS: GABAPENTIN 300 MG CAP PO SCH (08:44)
[2021-05-21] MEDS ORDERED: NON FORMULARY DRUG (Vitamin B Complex [Vitamin B Complex] 1 EACH Capsule) PO SCH (09:00)
[2021-05-21] MEDS ORDERED: METOPROLOL SUCCINATE (ER) 50 MG TAB.ER.24H PO SCH (09:00)
[2021-05-21] MEDS ORDERED: CLOPIDOGREL 75 MG TAB PO SCH (09:00)
[2021-05-21] MEDS ORDERED: ASCORBIC ACID 500 MG TAB PO SCH (09:00)
[2021-05-21] MEDS ORDERED: ASPIRIN 81 MG PO SCH (09:00)
--- NOTE | 2021-05-21 09:20 | DS ---
DISCHARGE SUMMARY DATE OF ADMISSION: 05/20/2021 DATE OF DISCHARGE: 05/21/2021 DIAGNOSES: 1. Coronary artery disease with abnormal stress test. 2. Hypertension. 3. Hyperlipidemia. 4. Peripheral arterial disease with left common iliac stenosis. Mr. Cameron was brought in for elective cardiac cath yesterday from right radial approach. Study revealed significant stenosis of mid circumflex just before a large obtuse marginal. Stenting of this vessel was performed uneventfully. Post-procedure course is uneventful. He will be discharged today with instructions to quit smoking, dual antiplatelet therapy, aspirin and Plavix. Prescriptions were given and sent and instructed. Also he will be taking rosuvastatin and metoprolol succinate as before. I will see him in the office 05/27 at 2 p.m. Discharge instructions regarding activity, diet and medications were given. Labs and EKG reviewed. No significant issues. Patient has a sinus rhythm with right bundle, unchanged. Right radial site is clean and dry with excellent pulse. Vitals are stable. No JVD. S1, S2 heard normally. Lungs were clear. Abdomen is soft, nontender. Lower extremities reveal normal pulses. No edema. Central nervous system is normal. Right radial site is clean and dry. RECOMMENDATION: Patient will be discharged today. Instructions given. I will see him in the office on 05/27. MMODL / IJN: [id number] /
[2021-05-21 09:34] VITALS: BP 130/76; PULSE 58; RESP 18; TEMP 97.6
== END 2021-05-21 09:50 | disposition home or self-care (01) ==
LOC: CATHCVL 09:16 → 6NMEDSUR 12:03 → CATHCVL 05-21 09:50
PROVIDERS: ATTEND Internal Medicine Interventional Cardiology
DX: I25.110 Atherosclerotic heart disease of native coronary artery with unstable angina pectoris (principal); I10 Essential (primary) hypertension; R94.39 Abnormal result of other cardiovascular function study; E78.00 Pure hypercholesterolemia, unspecified; F17.210 Nicotine dependence, cigarettes, uncomplicated; F17.290 Nicotine dependence, other tobacco product, uncomplicated; Z88.8 Allergy status to other drugs, medicaments and biological substances; I77.1 Stricture of artery; I73.9 Peripheral vascular disease, unspecified; Z79.82 Long term (current) use of aspirin; Z79.899 Other long term (current) drug therapy
CPT/HCPCS: 93458; 80048; 85025; 87635; C9600; C1769 ×3; C1887 ×2; C1894; C1725; C1874; J2250; J2001; J3010; J1644; Q9967

== ENCOUNTER 2021-06-23 08:28 | Emergency (ER) | payer OTHER ==
[2021-06-23 08:32] VITALS: TEMP 97.6
--- NOTE | 2021-06-23 09:18 | ED ---
Upper Extremity HPI - General Chief Complaint: Extremity Injury, Upper Stated Complaint: fall, rt arm injury Time Seen by Provider: 06/23/21 08:32 Source: patient, RN notes reviewed Mode of arrival: ambulatory Limitations: no limitations - History of Present Illness Initial Comments: This a 51-year-old male presents emergency Department with chief complaint of fall. Patient states he tripped on Wednesday going upstairs. Patient fell onto his right elbow. Patient it's swollen which is improving, pain with range of motion neurovascular intact no head injury no loss conscious. Patient offers no complaints. - Related Data Home Medications Medication Instructions Recorded Confirmed Cyclobenzaprine [Flexeril] 10 mg PO TID PRN 10/26/15 05/16/21 Gabapentin [Neurontin] 900 mg PO TID 10/26/15 05/20/21 Ibuprofen [Motrin] 800 mg PO TID 10/26/15 05/20/21 SUMAtriptan [Imitrex] 50 mg PO DAILY PRN 10/26/15 05/16/21 Aspirin 81 mg PO DAILY 10/27/15 05/20/21 Garlic 1 cap PO DAILY 10/27/15 05/20/21 Vitamin B Complex 1 cap PO DAILY 10/27/15 05/20/21 Ascorbic Acid [Vitamin C] 500 mg PO DAILY 01/01/17 05/20/21 Cholecalciferol [Vitamin D3 (25 2,000 unit PO DAILY 01/01/17 05/20/21 Mcg = 1000 Iu)] Melatonin 5 mg PO HS 01/01/17 05/20/21 Vitamin E 100 unit PO DAILY 01/01/17 05/20/21 Ginkgo Biloba [place] Extract [Ginkgo 30 mg PO DAILY 06/17/18 05/20/21 Biloba] lamoTRIgine [LaMICtal] 200 mg PO HS 04/24/20 05/20/21 hydrOXYzine pamoate [hydrOXYzine 50 mg PO BID 08/13/20 05/20/21 PAMOATE] Atorvastatin Calcium [Lipitor] 40 mg PO HS 05/16/21 05/20/21 Metoprolol Succinate [Toprol XL] 50 mg PO DAILY 05/16/21 05/20/21 OLANZapine 10 mg PO HS 05/16/21 05/20/21 Omeprazole [PriLOSEC] 40 mg PO DAILY 05/16/21 05/20/21 Rosuvastatin Calcium [Crestor] 20 mg PO DAILY 05/16/21 05/20/21 amLODIPine [Norvasc] 5 mg PO HS 05/16/21 05/20/21 traMADol HCL 50 mg PO DIRECTED PRN 05/16/21 05/16/21 Previous Rx's Medication Instructions Recorded Aspirin 81 mg PO DAILY #90 tab 05/21/21 Clopidogrel Bisulfate [Plavix] 75 mg PO DAILY #90 tab 05/21/21 Nitroglycerin Sl Tabs [Nitrostat] 0.4 mg SUBLINGUAL Q5M PRN #100 tab 05/21/21 Allergies Allergy/AdvReac Type Severity Reaction Status Date / Time prednisone AdvReac PTSD- Verified 06/23/21 08:32 ANGRY .- 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 topiramate [From Topamax] AdvReac increased Verified 06/23/21 08:32 anxiety nicotine patch AdvReac "Skin Uncoded 06/23/21 08:32 peeled off" Review of Systems ROS Statement: Those systems with pertinent positive or pertinent negative responses have been documented in the HPI. ROS Other: All systems not noted in ROS Statement are negative. Past Medical History Past Medical History: Chest Pain / Angina, CVA/TIA, Eye Disorder, GERD/Reflux, GI Bleed, Hearing Disorder / Deafness, Hyperlipidemia, Memory Impairment, Myocardial Infarction (NV), Mitral Valve Prolapse (MVP), Osteoarthritis (OA) Additional Past Medical History / Comment(s): "Possible NV 04/13/21 after getting Covid Vaccine". Concussions X19, tachycardia, thickening of heart wall, Barretts Esphogus, hiatal hernia, migraines, TIA 2007- affected short term memory. Hx of GI bleed possibly due to [place] Rx in [place]. "[place] Syndrome" with swelling of joints. Tinnitus with some hearing loss. Restless Leg Syndrome. Torn retina left eye. Slight edema bilateral lower extremities. "Beginning of Emphysema." Last Myocardial Infarction Date:: June 14, 2007 History of Any Multi-Drug Resistant Organisms: None Reported Past Surgical History: Heart Catheterization, Orthopedic Surgery Additional Past Surgical History / Comment(s): Left shoulder surgery,right shoulder surgery X3, eye surgeries on left eye X2(VITRECTOMY, TORN RETINA),laser surgery right eye X2, left forearm foreign body removed, left bicep lipoma removed, left rib cage lipoma removed X2, vasectomy, Heart Cath X2 (no stents), arthroscopy bilateral knees, I&D cyst left earlobe, excision of xiphoid process and chest nodule. Past Anesthesia/Blood Transfusion Reactions: No Reported Reaction Past Psychological History: ADD/ADHD, Anxiety, Depression, PTSD Smoking Status: Current every day smoker Past Alcohol Use History: Occasional Past Drug Use History: Marijuana - Past Family History Mother Family Medical History: COPD General Exam Limitations: no limitations General appearance: alert, in no apparent distress Head exam: Present: atraumatic, normocephalic, normal inspection Respiratory exam: Present: normal lung sounds bilaterally. Absent: respiratory distress, wheezes, rales, rhonchi, stridor Cardiovascular Exam: Present: regular rate, normal rhythm, normal heart sounds. Absent: systolic murmur, diastolic murmur, rubs, gallop, clicks Extremities exam: Present: other (Right elbow there is some swelling noted over the posterior aspect, neurovascularly intact there is pain with range of motion and patient unable to complete full extension.) Course Vital Signs 06/23/21 06/23/21 08:29 10:10 Temperature 97.6 F Pulse Rate 76 65 Respiratory 20 16 Rate Blood Pressure 175/81 147/78 O2 Sat by Pulse 99 100 Oximetry Medical Decision Making - Medical Decision Making X-ray was read and reviewed by radiologist shows no acute fracture of the right elbow. Patient right elbow contusion, swelling. Patient be discharged in stable condition return parameters were discussed. Disposition Clinical Impression: Contusion of right elbow Disposition: HOME SELF-CARE Condition: Stable Instructions (If sedation given, give patient instructions): Contusion in Adults (ED) Additional Instructions: Please return to the Emergency Department if symptoms worsen or any other concerns. Is patient prescribed a controlled substance at d/c from ED?: No Referrals: Nonstaff,Physician [Primary Care Provider] - 1-2 days Time of Disposition: 10:15
--- NOTE | 2021-06-23 09:46 | XR ---
Right elbow HISTORY: Trauma and pain, contusion 3 views the right elbow Ossific densities appear well-corticated at the level of the insertion of the triceps tendon. There i s soft tissue swelling noted over the olecranon region. Bone mineralization and alignment are maintai rito. No evident elbow joint effusion. IMPRESSION: No acute fracture or dislocation is suspected. There is soft tissue swelling. There may b e calcific tendinitis change, elbow MRI may be of benefit as indicated.
[2021-06-23 10:11] VITALS: BP 147/78; PULSE 65; RESP 16
== END 2021-06-23 10:19 | disposition home or self-care (01) ==
LOC: EC 08:28
DX: S50.01XA Contusion of right elbow, initial encounter (principal); E78.5 Hyperlipidemia, unspecified; F17.200 Nicotine dependence, unspecified, uncomplicated; G25.81 Restless legs syndrome; I25.2 Old myocardial infarction; J43.9 Emphysema, unspecified; K21.9 Gastro-esophageal reflux disease without esophagitis; M19.90 Unspecified osteoarthritis, unspecified site; Z79.1 Long term (current) use of non-steroidal anti-inflammatories (NSAID); Z79.82 Long term (current) use of aspirin; Z79.899 Other long term (current) drug therapy; Z86.73 Personal history of transient ischemic attack (TIA), and cerebral infarction without residual deficits; Z88.8 Allergy status to other drugs, medicaments and biological substances; W01.0XXA Fall on same level from slipping, tripping and stumbling without subsequent striking against object, initial encounter
CPT/HCPCS: 99283

== ENCOUNTER 2021-06-25 12:47 | Day surgery (SDC) | payer OTHER ==
[2021-06-24 08:53] VITALS: BMI 33.0
[~2021-06-25 12:47] MED LIST changes: +ASPIRIN 325 MG TAB PO PRN; -ASPIRIN 325 MG TAB PO STA; -NITROGLYCERIN SL TABS 0.4 MG TAB SUBLINGUAL PRN; +SODIUM CHLORIDE 0.9% 1,000 ML in EMPTY BAG 1 BAG IV ONE; +ZOLPIDEM 5 MG TAB PO PRN
[2021-06-25 13:18] LABS: Basophils # (A) 0.1 k/uL (0-0.2); Basophils % (A) 2 %; Eosinophils # (A) 0.4 k/uL (0-0.7); Eosinophils % (A) 5 %; HCT 42.2 % (39.0-53.0); HGB 13.9 gm/dL (13.0-17.5); Lymphocytes # (A) 2.1 k/uL (1.0-4.8); Lymphocytes % (A) 28 %; MCH 28.8 pg (25.0-35.0); MCV 87.5 fL (80.0-100.0); Mean Platelet Volume 7.3; Monocytes # (A) 0.3 k/uL (0-1.0); Monocytes % (A) 4 %; Neutrophils # (A) 4.4 k/uL (1.3-7.7); Neutrophils % (A) 60 %; Platelet Count 284 k/uL (150-450); RBC 4.83 m/uL (4.30-5.90); RDW 12.3 % (11.5-15.5); WBC 7.4 k/uL (3.8-10.6)
[2021-06-25 13:35] LABS: African American GFR (CKD) >90 (>60 ml/min/1.73 sqM); Anion Gap 7 mmol/L; Blood Urea Nitrogen 10 mg/dL (9-20); Calcium 8.9 mg/dL (8.4-10.2); Carbon Dioxide 25 mmol/L (22-30); Chloride 107 mmol/L (98-107); Glucose 101 mg/dL (74-99); Non-African American GFR(CKD) >90 (>60 ml/min/1.73 sqM); Potassium 4.7 mmol/L (3.5-5.1); Sodium 139 mmol/L (137-145)
[2021-06-25] MEDS ORDERED: fentaNYL (PF) 50 MCG/ML 2 ML AMP ONE (13:50)
[2021-06-25] MEDS ORDERED: LIDOCAINE 1% INJ 10MG/ML (30 ML VIAL-PF) SQ ONE (14:00)
[2021-06-25] MEDS ORDERED: MIDAZOLAM 2 MG/2 ML VIAL IVP ONE (14:00)
[2021-06-25] MEDS ORDERED: fentaNYL (PF) 50 MCG/ML 2 ML AMP IVP ONE (14:00)
--- NOTE | 2021-06-25 14:48 | P.OP ---
Date of Procedure: 06/25/21 Description of Procedure: Preoperative diagnosis: [Peripheral arterial disease, severe left iliac artery stenosis] Postoperative diagnosis: Same Procedure: [Ultrasound-guided left common femoral artery access Left iliofemoral angiogram Percutaneous transluminal balloon angioplasty and stent, 8 x 39 VBX balloon expandable Multilevel pressure gradient evaluation, aorta, distal common iliac artery Moderate conscious sedation at 35 minutes] Surgeon: oYanna Hernandez D.O. EBL: [Less than 10 mL] IV fluids: [See records] Urine output: [None measured] Drains: [None] Complications: [None immediately apparent] Condition: [Stable to recovery] Operative indication and findings: [This patient is a 51-year-old male who had initial evaluation for left lower extremity claudication type symptoms with ambulation. He had workup and evaluation with imaging consistent with left iliac severe stenosis. Initially he was planned to go forward with an angiogram however he underwent cardiac clearance and resuscitated a cardiac stent placement therefore this was pushed back proximally one month. He is taking his aspirin and Plavix. Risks and benefits of going forward with the procedure at this time were discussed. He seemingly understands and is willing to eat] Procedure in detail: [The patient is a the operative suite and placed in supine position. The bilateral groins are prepped and draped in usual sterile fashion. A preprocedure timeout was performed, all parties were in agreement. The ultrasound was utilized and the femoral artery was identified. The skin overlying was anesthetized 1% lidocaine plain. Using a micro-access needle, the common femoral artery was accessed by direct ultrasound visualization. Trendelenburg position was used to place a 6-[place] sheath. A iliofemoral angiogram was performed revealing the area of stenosis. Catheters and wires were used to versus stenosis and catheter confirmation of luminal gain was performed again revealing the stenosis itself. After appropriate sizing, and 8- [place] sheath was placed and an 8 x 39 balloon expandable covered stent was pl aced. Repeat imaging was performed, there was better flow through this area however was difficult to visualize therefore pressures were taken. Approximate to the stent in the aorta the systolic pressure measured 139 mmHg. Distally to the stent measured 130 mmHg. Given these findings are was no further treatment. Catheters and wires were removed. A an Angio-Seal closure device was deployed successfully and achieved hemostasis after removal of the sheath.] Plan - Discharge Summary Discharge Rx Participant: Yes New Discharge Prescriptions: No Action Gabapentin [Neurontin] 900 mg PO TID Cyclobenzaprine [Flexeril] 10 mg PO TID PRN PRN Reason: Pain SUMAtriptan [Imitrex] 50 mg PO DAILY PRN PRN Reason: Headache Ibuprofen [Motrin] 800 mg PO TID Aspirin 81 mg PO DAILY Vitamin B Complex 1 cap PO DAILY Garlic 1 cap PO DAILY Vitamin E 100 unit PO DAILY Cholecalciferol [Vitamin D3 (25 Mcg = 1000 Iu)] 2,000 unit PO DAILY Ascorbic Acid [Vitamin C] 500 mg PO DAILY Melatonin 5 mg PO HS Ginkgo Biloba [place] Extract [Ginkgo Biloba] 30 mg PO DAILY lamoTRIgine [LaMICtal] 200 mg PO HS hydrOXYzine pamoate [hydrOXYzine PAMOATE] 50 mg PO BID Omeprazole [PriLOSEC] 40 mg PO DAILY Rosuvastatin Calcium [Crestor] 20 mg PO HS traMADol HCL 50 mg PO DIRECTED PRN PRN Reason: Pain Metoprolol Succinate [Toprol XL] 50 mg PO DAILY Nitroglycerin Sl Tabs [Nitrostat] 0.4 mg SUBLINGUAL Q5M PRN #100 tab PRN Reason: Chest Pain amLODIPine [Norvasc] 5 mg PO HS OLANZapine 10 mg PO HS Clopidogrel Bisulfate [Plavix] 75 mg PO DAILY #90 tab Discharge Medication List Cyclobenzaprine [Flexeril] 10 mg PO TID PRN 10/26/15 [History] Gabapentin [Neurontin] 900 mg PO TID 10/26/15 [History] Ibuprofen [Motrin] 800 mg PO TID 10/26/15 [History] SUMAtriptan [Imitrex] 50 mg PO DAILY PRN 10/26/15 [History] Aspirin 81 mg PO DAILY 10/27/15 [History] Garlic 1 cap PO DAILY 10/27/15 [History] Vitamin B Complex 1 cap PO DAILY 10/27/15 [History] Ascorbic Acid [Vitamin C] 500 mg PO DAILY 01/01/17 [History] Cholecalciferol [Vitamin D3 (25 Mcg = 1000 Iu)] 2,000 unit PO DAILY 01/01/17 [History] Melatonin 5 mg PO HS 01/01/17 [History] Vitamin E 100 unit PO DAILY 01/01/17 [History] Ginkgo Biloba [place] Extract [Ginkgo Biloba] 30 mg PO DAILY 06/17/18 [History] lamoTRIgine [LaMICtal] 200 mg PO HS 04/24/20 [History] hydrOXYzine pamoate [hydrOXYzine PAMOATE] 50 mg PO BID 08/13/20 [History] Metoprolol Succinate [Toprol XL] 50 mg PO DAILY 05/16/21 [History] OLANZapine 10 mg PO HS 05/16/21 [History] Omeprazole [PriLOSEC] 40 mg PO DAILY 05/16/21 [History] Rosuvastatin Calcium [Crestor] 20 mg PO HS 05/16/21 [History] amLODIPine [Norvasc] 5 mg PO HS 05/16/21 [History] traMADol HCL 50 mg PO DIRECTED PRN 05/16/21 [History] Clopidogrel Bisulfate [Plavix] 75 mg PO DAILY #90 tab 05/21/21 [Rx] Nitroglycerin Sl Tabs [Nitrostat] 0.4 mg SUBLINGUAL Q5M PRN #100 tab 05/21/21 [Rx]
[2021-06-25] MEDS ORDERED: IOPAMIDOL-250 100ML BTL INTRAARTER ONE (14:50)
[2021-06-25] MEDS ORDERED: NALOXONE 0.4 MG/ML 1 ML VIAL IVP PRN (14:50)
[2021-06-25] MEDS ORDERED: HYDROmorphone 0.5 MG/0.5 ML SYRINGE IVP PRN (14:50)
[2021-06-25] MEDS ORDERED: HYDROcodone/APAP 5-325MG 1 EACH TAB PO PRN (14:50)
--- NOTE | 2021-06-25 15:10 | IR ---
Fluoroscopy HISTORY: Pain in left leg 1.8 minutes fluoroscopy time supplied to the referring clinician. 123 intraoperative C-arm images do cument the procedure. See dictated report from vascular surgery.
[2021-06-25 22:20] VITALS: BP 185/96; PULSE 66; RESP 16; TEMP 97.5
== END 2021-06-25 20:20 | disposition home or self-care (01) ==
LOC: CATHCVL 12:47 → 6NMEDSUR 14:46 → CATHCVL 20:20
PROVIDERS: ATTEND Surgery
DX: I70.212 Atherosclerosis of native arteries of extremities with intermittent claudication, left leg (principal); I70.8 Atherosclerosis of other arteries; I10 Essential (primary) hypertension; E78.5 Hyperlipidemia, unspecified; G43.909 Migraine, unspecified, not intractable, without status migrainosus; I25.2 Old myocardial infarction; F43.10 Post-traumatic stress disorder, unspecified; N52.9 Male erectile dysfunction, unspecified; K21.9 Gastro-esophageal reflux disease without esophagitis; H91.90 Unspecified hearing loss, unspecified ear; R01.1 Cardiac murmur, unspecified; H93.19 Tinnitus, unspecified ear; R25.1 Tremor, unspecified; F17.210 Nicotine dependence, cigarettes, uncomplicated; Z86.73 Personal history of transient ischemic attack (TIA), and cerebral infarction without residual deficits; Z79.82 Long term (current) use of aspirin; Z79.02 Long term (current) use of antithrombotics/antiplatelets; Z79.899 Other long term (current) drug therapy; Z88.8 Allergy status to other drugs, medicaments and biological substances; Z98.890 Other specified postprocedural states; Z82.49 Family history of ischemic heart disease and other diseases of the circulatory system; Z83.3 Family history of diabetes mellitus; Z82.5 Family history of asthma and other chronic lower respiratory diseases
CPT/HCPCS: 37221; 80048; 85025; C1894 ×2; C1760; C1769 ×5; C1874; J2250; J2001; J3010; Q9966

== ENCOUNTER 2021-08-22 21:47 | Emergency (ER) | payer OTHER ==
[2021-08-22 21:56] VITALS: RESP 18
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
[2021-08-22 22:47] LABS: Appearance,Urine Clear (Clear); Bilirubin,Urine Negative (Negative); Blood,Urine Negative (Negative); Color,Urine Light Yellow; Glucose,Urine (UA) Negative (Negative); Ketones,Urine Negative (Negative); Leukocyte Esterase,Urine Negative (Negative); Nitrite,Urine Negative (Negative); Protein,Urine Negative (Negative); Specific Gravity,Urine 1.004 (1.001-1.035); Urobilinogen,Urine <2.0 mg/dL (<2.0)
[2021-08-22 22:49] LABS: Basophils # (A) 0.1 k/uL (0-0.2); Basophils % (A) 1 %; Eosinophils # (A) 0.3 k/uL (0-0.7); Eosinophils % (A) 4 %; Lymphocytes # (A) 1.9 k/uL (1.0-4.8); Lymphocytes % (A) 28 %; MCH 29.1 pg (25.0-35.0); MCHC 33.4 g/dL (31.0-37.0); MCV 87.1 fL (80.0-100.0); Mean Platelet Volume 7.4; Monocytes # (A) 0.5 k/uL (0-1.0); Monocytes % (A) 7 %; Neutrophils # (A) 4.1 k/uL (1.3-7.7); Neutrophils % (A) 59 %; Platelet Count 235 k/uL (150-450); RBC 4.48 m/uL (4.30-5.90); RDW 13.1 % (11.5-15.5); WBC 6.9 k/uL (3.8-10.6)
[2021-08-22 22:58] LABS: ALT 62 U/L (4-49); AST 38 U/L (17-59); African American GFR (CKD) >90 (>60 ml/min/1.73 sqM); Albumin 3.9 g/dL (3.5-5.0); Alkaline Phosphatase 81 U/L (38-126); Anion Gap 6 mmol/L; Blood Urea Nitrogen 12 mg/dL (9-20); Calcium 8.6 mg/dL (8.4-10.2); Carbon Dioxide 25 mmol/L (22-30); Chloride 108 mmol/L (98-107); Glucose 127 mg/dL (74-99); Magnesium 1.9 mg/dL (1.6-2.3); Non-African American GFR(CKD) >90 (>60 ml/min/1.73 sqM); Phosphorus 3.1 mg/dL (2.5-4.5); Potassium 3.5 mmol/L (3.5-5.1); Sodium 139 mmol/L (137-145); Total Bilirubin 0.3 mg/dL (0.2-1.3); Total Protein 6.5 g/dL (6.3-8.2)
[2021-08-22 23:00] LABS: INR 0.9 (<1.2); Partial Thromboplastin Time 22.8 sec (22.0-30.0); Prothrombin Time 10.1 sec (9.0-12.0)
--- NOTE | 2021-08-22 23:27 | XR ---
EXAMINATION TYPE: XR chest 2V DATE OF EXAM: 08/22/2021 COMPARISON: 01/01/2017 HISTORY: Chest pain TECHNIQUE: FINDINGS: Heart and mediastinum are normal. Lungs are clear. Diaphragm is normal. Bony thorax appears normal. There is small linear density left lung base. IMPRESSION: Small left lung base Area of subsegmental atelectasis..Otherwise negative exam.
[2021-08-23 01:09] VITALS: BP 138/74; PULSE 60; TEMP 97.6
== END 2021-08-23 01:12 | disposition home or self-care (01) ==
LOC: EC 21:47
DX: R60.9 Edema, unspecified (principal); F17.200 Nicotine dependence, unspecified, uncomplicated; Z88.8 Allergy status to other drugs, medicaments and biological substances
CPT/HCPCS: 36415; 71046; 80053; 81003; 82140; 83735; 83880; 84100; 84484; 85025; 85610; 85730; 93005

== ENCOUNTER 2021-09-01 13:36 | Emergency (ER) | payer OTHER ==
[2021-09-01 13:53] VITALS: TEMP 97.9
[2021-09-01] MEDS ORDERED: HYDROcodone/APAP 5-325MG 1 EACH TAB PO STA (16:19)
--- NOTE | 2021-09-01 17:22 | US ---
EXAMINATION TYPE: US venous doppler duplex LE DATE OF EXAM: 09/01/2021 5:00 PM COMPARISON: NONE CLINICAL HISTORY: Pain, redness, swelling. Pain, redness, swelling. No hx of DVT. Patient on Plavix. SIDE PERFORMED: Bilateral TECHNIQUE: The lower extremity deep venous system is examined utilizing real time linear array sonog john with graded compression, doppler sonography and color-flow sonography. VESSELS IMAGED: Common Femoral Vein Deep Femoral Vein Greater Saphenous Vein * Femoral Vein Popliteal Vein Small Saphenous Vein * Proximal Calf Veins (* superficial vessels) Right Leg: No evidence of DVT in veins imaged at this time. Left Leg: No evidence of DVT in veins imaged at this time. IMPRESSION: No sign of deep vein thrombosis in both legs.
[2021-09-01 18:12] LABS: Basophils # (A) 0.1 k/uL (0-0.2); Basophils % (A) 1 %; Eosinophils # (A) 0.3 k/uL (0-0.7); Eosinophils % (A) 5 %; HCT 43.1 % (39.0-53.0); HGB 14.1 gm/dL (13.0-17.5); Lymphocytes % (A) 32 %; MCH 28.8 pg (25.0-35.0); MCHC 32.7 g/dL (31.0-37.0); MCV 88.1 fL (80.0-100.0); Mean Platelet Volume 7.4; Monocytes # (A) 0.3 k/uL (0-1.0); Monocytes % (A) 4 %; Neutrophils # (A) 3.6 k/uL (1.3-7.7); Neutrophils % (A) 56 %; Platelet Count 246 k/uL (150-450); RBC 4.89 m/uL (4.30-5.90); RDW 13.4 % (11.5-15.5); WBC 6.4 k/uL (3.8-10.6)
[2021-09-01 18:22] LABS: ALT 79 U/L (4-49); AST 53 U/L (17-59); African American GFR (CKD) >90 (>60 ml/min/1.73 sqM); Albumin 4.7 g/dL (3.5-5.0); Alkaline Phosphatase 78 U/L (38-126); Anion Gap 7 mmol/L; Blood Urea Nitrogen 12 mg/dL (9-20); Calcium 9.1 mg/dL (8.4-10.2); Carbon Dioxide 23 mmol/L (22-30); Chloride 109 mmol/L (98-107); Glucose 115 mg/dL (74-99); Non-African American GFR(CKD) >90 (>60 ml/min/1.73 sqM); Sodium 139 mmol/L (137-145); Total Bilirubin 0.8 mg/dL (0.2-1.3); Total Protein 7.5 g/dL (6.3-8.2)
[2021-09-01 18:24] VITALS: BP 152/80; PULSE 71; RESP 18
[2021-09-01 18:36] LABS: Potassium 5.2 mmol/L (3.5-5.1)
--- NOTE | 2021-09-01 18:36 | ED ---
Extremity Problem HPI - General Chief complaint: Extremity Injury, Lower Stated complaint: leg swelling & discoloration Time Seen by Provider: 09/01/21 15:38 Source: patient, RN notes reviewed Mode of arrival: ambulatory Limitations: no limitations - History of Present Illness Initial comments: This is a 51-year-old male who presents to the emergency department for bilateral lower extremity pain and swelling. He was initially evaluated in the emergency department on 08/22 for these symptoms. At that time, he states that he had recently started a new once daily anti-inflammatory medication. It was thought that the symptoms may have been correlated, and he was instructed to stop taking that medication. Patient states that he has not taken it since then. The swelling has continued to progress, and he has pain from the knees down to the feet. He also reports discoloration of the lower extremities that started 2 days ago. Pain is exacerbated by walking. Also states that this is tender to the touch. Denies any fevers, chills, sore throat, cough, dyspnea, chest pain, palpitations, abdominal pain, nausea, vomiting, diarrhea, back pain, or headaches. MD Complaint: extremity pain, extremity swelling Onset/Timin -: week(s) Location: bilateral lower extremity History of Same: No Worsens with: weight bearing, walking - Related Data Home Medications Medication Instructions Recorded Confirmed Cyclobenzaprine [Flexeril] 10 mg PO TID PRN 10/26/15 06/25/21 Gabapentin [Neurontin] 900 mg PO TID 10/26/15 06/25/21 Ibuprofen [Motrin] 800 mg PO TID 10/26/15 06/25/21 SUMAtriptan [Imitrex] 50 mg PO DAILY PRN 10/26/15 06/25/21 Aspirin 81 mg PO DAILY 10/27/15 06/25/21 Garlic 1 cap PO DAILY 10/27/15 06/25/21 Vitamin B Complex 1 cap PO DAILY 10/27/15 06/25/21 Ascorbic Acid [Vitamin C] 500 mg PO DAILY 01/01/17 06/25/21 Cholecalciferol [Vitamin D3 (25 2,000 unit PO DAILY 01/01/17 06/25/21 Mcg = 1000 Iu)] Melatonin 5 mg PO HS 01/01/17 06/25/21 Vitamin E 100 unit PO DAILY 01/01/17 06/25/21 Ginkgo Biloba [place] Extract [Ginkgo 30 mg PO DAILY 06/17/18 06/25/21 Biloba] lamoTRIgine [LaMICtal] 200 mg PO HS 04/24/20 06/25/21 hydrOXYzine pamoate [hydrOXYzine 50 mg PO BID 08/13/20 06/25/21 PAMOATE] Metoprolol Succinate [Toprol XL] 50 mg PO DAILY 05/16/21 06/24/21 OLANZapine 10 mg PO HS 05/16/21 06/25/21 Omeprazole [PriLOSEC] 40 mg PO DAILY 05/16/21 06/25/21 Rosuvastatin Calcium [Crestor] 20 mg PO HS 05/16/21 06/25/21 amLODIPine [Norvasc] 5 mg PO HS 05/16/21 06/25/21 traMADol HCL 50 mg PO DIRECTED PRN 05/16/21 06/25/21 Previous Rx's Medication Instructions Recorded Clopidogrel Bisulfate [Plavix] 75 mg PO DAILY #90 tab 05/21/21 Nitroglycerin Sl Tabs [Nitrostat] 0.4 mg SUBLINGUAL Q5M PRN #100 tab 05/21/21 Ibuprofen [Motrin] 600 mg PO Q8HR PRN #30 tab 08/23/21 Furosemide [Lasix] 20 mg PO DAILY #20 tab 09/01/21 Allergies Allergy/AdvReac Type Severity Reaction Status Date / Time prednisone AdvReac PTSD- Verified 09/01/21 13:49 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 topiramate [From Topamax] AdvReac increased Verified 09/01/21 13:49 anxiety nicotine patch AdvReac "Skin Uncoded 09/01/21 13:49 peeled off" Review of Systems ROS Statement: Those systems with pertinent positive or pertinent negative responses have been documented in the HPI. ROS Other: All systems not noted in ROS Statement are negative. Past Medical History Past Medical History: Coronary Artery Disease (CAD), Heart Failure Additional Past Medical History / Comment(s): "Possible [place] 04/13/21 after getting Covid Vaccine". Concussions X19, tachycardia, thickening of heart wall, Barretts Esphogus, hiatal hernia, migraines, TIA 2007- affected short term memory. Hx of GI bleed possibly due to Malaria Rx in [place]. "[place] Syndrome" with swelling of joints. Tinnitus with some hearing loss. Restless Leg Syndrome. Torn retina left eye. Slight edema bilateral lower extremities. "Beginning of Emphysema." Last Myocardial Infarction Date:: June 14, 2007 History of Any Multi-Drug Resistant Organisms: None Reported Past Surgical History: Heart Catheterization, Orthopedic Surgery Additional Past Surgical History / Comment(s): Left shoulder surgery,right shoulder surgery X3, eye surgeries on left eye X2(VITRECTOMY, TORN RETINA),laser surgery right eye X2, left forearm foreign body removed, left bicep lipoma removed, left rib cage lipoma removed X2, vasectomy, Heart Cath X2 (no stents), arthroscopy bilateral knees, I&D cyst left earlobe, excision of xiphoid process and chest nodule. Past Anesthesia/Blood Transfusion Reactions: No Reported Reaction Past Psychological History: ADD/ADHD, Anxiety, Depression, PTSD Smoking Status: Current every day smoker Past Alcohol Use History: Occasional Past Drug Use History: None Reported - Past Family History Mother Family Medical History: COPD General Exam Limitations: no limitations General appearance: alert, in no apparent distress Head exam: Present: atraumatic, normocephalic, normal inspection Respiratory exam: Present: normal lung sounds bilaterally. Absent: respiratory distress, wheezes, rales, rhonchi, stridor Cardiovascular Exam: Present: regular rate, normal rhythm, normal heart sounds. Absent: systolic murmur, diastolic murmur, rubs, gallop, clicks Extremities exam: Present: other (Bilateral lower extremity tenderness and swelling starting just inferior to the bilateral patellas and terminating at the top of the feet. Pinpoint red lesions on the bilateral lower extremities. 2+ dorsalis pedis and tibialis posterior pulses and capillary refill <1 second bilaterally. ) Neurological exam: Present: alert, oriented X3, CN II-XII intact Psychiatric exam: Present: normal affect, normal mood Course Vital Signs 09/01/21 09/01/21 13:50 18:21 Temperature 97.9 F Pulse Rate 66 71 Respiratory 16 18 Rate Blood Pressure 133/69 152/80 O2 Sat by Pulse 98 100 Oximetry Medical Decision Making - Medical Decision Making This is a 51-year-old male who presents to the emergency department for bilateral lower extremity edema and pain. Duplex ultrasound of the lower extremities identified no signs of a DVT. Lab work was nonactionable. Dr. Anne evaluated the patient alongside myself. He advised that this is likely a dependent edema. Patient will be started on 20 mg of Lasix each day. Follow up as scheduled with cardiology for a stress test in 1-2 weeks. He can discuss symptoms with them at that point and see if alternative treatment is needed. Return precautions reviewed in depth, the patient is instructed to return to the emergency department with any new, worsening, or concerning symptoms. Patient verbalized understanding. This case was discussed in detail with the attending ED physician. Presentation, findings, and treatment plan discussed in detail as well. - Lab Data Result diagrams: 09/01/21 18:06 09/01/21 18:06 Lab Results 09/01/21 09/01/21 09/01/21 Range/Units 18:06 18:06 18:06 WBC 6.4 (3.8-10.6) k/uL RBC 4.89 (4.30-5.90) m/uL Hgb 14.1 (13.0-17.5) gm/dL Hct 43.1 (39.0-53.0) % MCV 88.1 (80.0-100.0) fL MCH 28.8 (25.0-35.0) pg MCHC 32.7 (31.0-37.0) g/dL RDW 13.4 (11.5-15.5) % Plt Count 246 (150-450) k/uL MPV 7.4 Neutrophils % 56 % Lymphocytes % 32 % Monocytes % 4 % Eosinophils % 5 % Basophils % 1 % Neutrophils # 3.6 (1.3-7.7) k/uL Lymphocytes # 2.0 (1.0-4.8) k/uL Monocytes # 0.3 (0-1.0) k/uL Eosinophils # 0.3 (0-0.7) k/uL Basophils # 0.1 (0-0.2) k/uL Sodium 139 (137-145) mmol/L Potassium 5.2 H (3.5-5.1) mmol/L Chloride 109 H (98-107) mmol/L Carbon Dioxide 23 (22-30) mmol/L Anion Gap 7 mmol/L BUN 12 (9-20) mg/dL Creatinine 0.85 (0.66-1.25) mg/dL Est GFR (CKD-EPI)AfAm >90 (>60 ml/min/1.73 sqM) Est GFR (CKD-EPI)NonAf >90 (>60 ml/min/1.73 sqM) Glucose 115 H (74-99) mg/dL Plasma Lactic Acid Nicola (0.7-2.0) mmol/L Calcium 9.1 (8.4-10.2) mg/dL Total Bilirubin 0.8 (0.2-1.3) mg/dL AST 53 (17-59) U/L ALT 79 H (4-49) U/L Alkaline Phosphatase 78 (38-126) U/L Troponin I <0.012 (0.000-0.034) ng/mL NT-Pro-B Natriuret Pep pg/mL Total Protein 7.5 (6.3-8.2) g/dL Albumin 4.7 (3.5-5.0) g/dL 09/01/21 09/01/21 Range/Units 18:06 18:06 WBC (3.8-10.6) k/uL RBC (4.30-5.90) m/uL Hgb (13.0-17.5) gm/dL Hct (39.0-53.0) % MCV (80.0-100.0) fL MCH (25.0-35.0) pg MCHC (31.0-37.0) g/dL RDW (11.5-15.5) % Plt Count (150-450) k/uL MPV Neutrophils % % Lymphocytes % % Monocytes % % Eosinophils % % Basophils % % Neutrophils # (1.3-7.7) k/uL Lymphocytes # (1.0-4.8) k/uL Monocytes # (0-1.0) k/uL Eosinophils # (0-0.7) k/uL Basophils # (0-0.2) k/uL Sodium (137-145) mmol/L Potassium (3.5-5.1) mmol/L Chloride (98-107) mmol/L Carbon Dioxide (22-30) mmol/L Anion Gap mmol/L BUN (9-20) mg/dL Creatinine (0.66-1.25) mg/dL Est GFR (CKD-EPI)AfAm (>60 ml/min/1.73 sqM) Est GFR (CKD-EPI)NonAf (>60 ml/min/1.73 sqM) Glucose (74-99) mg/dL Plasma Lactic Acid Nicola 1.7 (0.7-2.0) mmol/L Calcium (8.4-10.2) mg/dL Total Bilirubin (0.2-1.3) mg/dL AST (17-59) U/L ALT (4-49) U/L Alkaline Phosphatase (38-126) U/L Troponin I (0.000-0.034) ng/mL NT-Pro-B Natriuret Pep 58 pg/mL Total Protein (6.3-8.2) g/dL Albumin (3.5-5.0) g/dL - Radiology Data Radiology results: report reviewed, image reviewed Disposition Clinical Impression: Dependent edema Disposition: HOME SELF-CARE Instructions (If sedation given, give patient instructions): Leg Edema (ED), Edema (ED) Additional Instructions: Return to the emergency department with any new, worsening, or concerning symptoms. Take the Lasix each morning. Elevate your legs when you are seated or lying down. Limit sodium intake. Follow up with your product marketing consultant as scheduled. Prescriptions: Furosemide [Lasix] 20 mg PO DAILY #20 tab Is patient prescribed a controlled substance at d/c from ED?: No Referrals: [facility] [Primary Care Provider] - 1-2 days
== END 2021-09-01 19:55 | disposition home or self-care (01) ==
LOC: EC 13:36
DX: R60.0 Localized edema (principal); I50.9 Heart failure, unspecified; I25.10 Atherosclerotic heart disease of native coronary artery without angina pectoris; I25.2 Old myocardial infarction; F32.A Depression, unspecified; F41.9 Anxiety disorder, unspecified; F17.200 Nicotine dependence, unspecified, uncomplicated; Z79.02 Long term (current) use of antithrombotics/antiplatelets; Z79.82 Long term (current) use of aspirin; Z79.899 Other long term (current) drug therapy
CPT/HCPCS: 36415; 80053; 83605; 83880; 84484; 85025; 93005; 93970; 99284

== ENCOUNTER → 2021-10-01 | Outpatient (CLI) | payer OTHER ==
--- NOTE | 2021-10-01 16:41 | XR ---
EXAMINATION TYPE: XR elbow complete bilateral DATE OF EXAM: 10/01/2021 4:12 PM INDICATION: Patient age:Male; 51 years old; Reason for study: [id number] PAIN IN UNSPECIFIED ELBOW; PHH. COMPARISON: Right elbow radiograph 06/23/2021. TECHNIQUE: The right elbow was examined in AP, lateral, and oblique projections. FINDINGS: No evidence of any acute osseous pathology, joint dislocation. There is increased in soft t issue swelling over the olecranon process. Well-corticated osseous lesion projecting over the posteri or elbow is unchanged from prior. No evidence of joint effusion is present. IMPRESSION: Increase in soft tissue swelling over the olecranon process compared to 06/23/2021, correlate for cell ulitis/bursitis. Unchanged calcific densities posterior to the elbow likely sequela of prior injury.
== END | disposition home or self-care (01) ==
LOC: RADXRMAIN 15:21
DX: M25.521 Pain in right elbow (principal); M25.522 Pain in left elbow; M79.89 Other specified soft tissue disorders

== ENCOUNTER → 2021-11-18 | Outpatient (CLI) | payer OTHER ==
--- NOTE | 2021-11-18 10:37 | US ---
EXAMINATION TYPE: US abdomen complete DATE OF EXAM: 11/18/2021 COMPARISON: CTa CLINICAL HISTORY: R10.30 LOWER ABD PAIN. Lower abdominal pain. TECHNIQUE: Multiple sonographic images of the abdomen are obtained. FINDINGS: EXAM MEASUREMENTS: Liver Length: 17.3 cm Gallbladder Wall: 0.25 cm Spleen: 14.1 cm Right Kidney: 12.5 x 6.4 x 5.1 cm Left Kidney: 12.5 x 6.3 x 6.3 cm CONVERSION DEVELOPER NOTES: Exam is very limited due to overlying gas and patient body habitus. Pancreas: Limited visibility. Liver: Appears very coarse with increased echogenicity and attenuation. Measures upper limits. Indis tinct, hypoechoic area seen adjacent to the gallbladder: 0.9 x 0.7 x 1.4 cm. Gallbladder: Possible minimal internal echoes versus artifact within. Evidence for sonographic Feliz's sign: Appears wnl CBD: Obscured Spleen: Appears slightly enlarged. Right Kidney: Appears minimally enlarged. Anechoic area seen upper pole: 2.5 x 1.7 x 1.1 cm- possible dilated upper collecting system. Limited visibility of lower pole. Contour appears irregular. Left Kidney: Appears minimally enlarged. No hydronephrosis or masses seen Upper IVC: Appears wnl Abd Aorta: Limited. Mid, distal, and iliacs were obscured. IMPRESSION: 1. Hepatic steatosis with areas of focal fatty sparing. 2. I cannot exclude gallbladder sludge. 3. Mild splenic enlargement.
== END | disposition home or self-care (01) ==
LOC: RADUSWWP 09:29
PROVIDERS: ATTEND Family Medicine
DX: K76.0 Fatty (change of) liver, not elsewhere classified (principal); R16.1 Splenomegaly, not elsewhere classified
CPT/HCPCS: 76700

== ENCOUNTER → 2021-11-20 | Outpatient (CLI) | payer OTHER ==
[2021-11-20 12:41] VITALS: BP 143/80; PULSE 67; RESP 18
--- NOTE | 2021-11-20 13:35 | P.PAINPG ---
PQRS Measure Charge Sheet Comment: HISTORY OF PRESENT ILLNESS: 51 yr old male as a referral from the [facility] presents today w severe and chronic L LBP x 15 yrs secondary to DDD, spondylosis and facet arthropathy without myelopathy for evaluation. Pt states his pain level is currently at 6/10 in intensity but escalates as high as 10/10 w lifting/ bending/ twisting. Pain is constant, burning in character, localized in the L lower aspect of his lumbar spine w radiation towards Pain is provoked w lifting/ twisting/ bending. PT in 2020, home stretching regimen, heat, (Tramadol, Flexeril, Motrin, Lidoderm), repositioning and rest. Pt stated he has developed "anger" when taking oral steroids for several weeks, but that he has had TPIs for his lumbar spine and tolerated them well. PMH: Vitamin D Deficiency, HTN, Hyperlipidemia, CAD, PVD, Bipolar Disorder, GERD, Migraines PSH: Cardiac Stent x 2, Torn Retina, Suicide Attempt (2004, 2005), Vasectomy, LUE Shrapnel, L Vitrectomy, Shoulder surgeries x 3, L shoulder impingement syndrome, L knee Meniscal Repair, R Kne Arthroscopy (2019), SH: 27 yr History, 30 pack/yr tobacco use, Rare ETOH use, No illicit drug use. . FH: Mo- COPD/ CAD. Fa- DM/ [place]/ at age 68 due to Agent [place]. All: See list Meds: See list REVIEW OF ORGAN SYSTEMS: CONSTITUTIONAL: No fevers or chills. No recent weight loss. NEUROLOGICAL: + numbness and tingling along the distal extremities. No seizure disorders or headaches. MUSCULOSKELETAL: + pain PSYCHIATRIC: Denies current depression or suicidal thoughts. Physical Examinations : Constitutional : Cooperative , not in acute distress . Neurologic : Cranial nerve II to XII intact. No focal neurological deficits. Psychiatric : alert & oriented x 3. Matching mood & appropriate affect. Judgment & insight intact. Musculoskeletal : Cervical Spine Motor strength in the deltoid and biceps: Normal right side. Normal Left side Motor strength biceps and the wrist extensors: Normal right side . Normal left side Motor strength in the triceps muscle: Normal right side. Normal left side Deep tendon reflexes: Normal at the biceps. Normal at Brachioradialis. Normal at triceps Vertebral body tenderness to deep palpation over Cervical facet loading test: positive bilaterally Spurling test: positive bilaterally Neck distraction test: positive bilaterally Viviana sign: positive bilaterally Lumbar spine Motor strength lower extremities ,thigh and legs 5/5 Right side , 5/5 Left side Deep tendon reflexes : Normal Knee Jerk. Normal Ankle Jerk Vertebral body tenderness over L4 Lumbar facet Loading Test: positive Right / positive Left Range of motion of the lumbar spine Flexion 30 degrees, extension 10 degrees Straight Leg Raise test: Left/ Right positive at <40 degree Alfa test: positive right / positive left. Severe tenderness over the Sacroiliac joint on the Right / Left sides Gaenslen test: positive bilaterally Seated flexion test: positive bilaterally. Sacral spine : Severe tenderness over the Sacroiliac joint: right side / left side Range of motion: Flexion of the lumbar spine <60 degrees Range of motion: Extension of the lumbar spine <20 degrees Gaenslen's Test positive Hector's Test positive Alfa test: positive right side / left side Thigh Thrust Test Sacral Thrust Test Imaging: MRI without contrast of the lumbar spine from 03/26/21 reviewed Assessment/ Plan : Lumbar DDD, lumbar spondylosis Recommendation of JEFFREY Espino5. May need a series of injections, up to 3 within a six-month timeframe, for optimal pain relief. Risks, benefits of procedure discussed and patient verbalized understanding. Admits aspirin or anti- coagulant use or medical history of diabetes. Protocol for discontinuation/ continuation of medications grace procedure discussed. Medical clearance for Plavix requested from Dr. Ramirez per patient. All questions answered. I have spent greater than 30 minutes on patient care today. Dr Dick was available by phone for the evaluation of this patient. The time was used to review the medical records including relevant urine studies and Prescription history (MAPs), review of the available imaging, evaluation and examination of the patient, coordination of care with the medical staff and if applicable referring physicians, as well as creation of the medical record PQRS Narrative: Smoking Status Current every day smoker Home Medications: Ambulatory Orders Cyclobenzaprine [Flexeril] 10 mg PO TID PRN 10/26/15 Gabapentin [Neurontin] 900 mg PO TID 10/26/15 Ibuprofen [Motrin] 800 mg PO TID 10/26/15 SUMAtriptan [Imitrex] 50 mg PO DAILY PRN 10/26/15 Aspirin 81 mg PO DAILY 10/27/15 Garlic 1 cap PO DAILY 10/27/15 Vitamin B Complex 1 cap PO DAILY 10/27/15 Ascorbic Acid [Vitamin C] 500 mg PO DAILY 01/01/17 Cholecalciferol [Vitamin D3 (25 Mcg = 1000 Iu)] 2,000 unit PO DAILY 01/01/17 Melatonin 5 mg PO HS 01/01/17 Vitamin E 100 unit PO DAILY 01/01/17 Ginkgo Biloba [place] Extract [Ginkgo Biloba] 30 mg PO DAILY 06/17/18 lamoTRIgine [LaMICtal] 200 mg PO HS 04/24/20 hydrOXYzine pamoate [hydrOXYzine PAMOATE] 50 mg PO BID 08/13/20 Metoprolol Succinate [Toprol XL] 50 mg PO DAILY 05/16/21 OLANZapine 10 mg PO HS 05/16/21 Omeprazole [PriLOSEC] 40 mg PO DAILY 05/16/21 Rosuvastatin Calcium [Crestor] 20 mg PO HS 05/16/21 amLODIPine [Norvasc] 5 mg PO HS 05/16/21 traMADol HCL 50 mg PO DIRECTED PRN 05/16/21 Clopidogrel Bisulfate [Plavix] 75 mg PO DAILY #90 tab 05/21/21 Nitroglycerin Sl Tabs [Nitrostat] 0.4 mg SUBLINGUAL Q5M PRN #100 tab 05/21/21 Ibuprofen [Motrin] 600 mg PO Q8HR PRN #30 tab 08/23/21 Furosemide [Lasix] 20 mg PO DAILY #20 tab 09/01/21 Controlled Substance Measures - Controlled Substance Measures Is patient prescribed a controlled substance at discharge?: No
== END ==
LOC: PNWHC3 12:04
PROVIDERS: ATTEND Specialist
DX: M51.36 Other intervertebral disc degeneration, lumbar region (principal); M47.816 Spondylosis without myelopathy or radiculopathy, lumbar region; I10 Essential (primary) hypertension; E78.5 Hyperlipidemia, unspecified; I25.10 Atherosclerotic heart disease of native coronary artery without angina pectoris; F31.9 Bipolar disorder, unspecified; G43.909 Migraine, unspecified, not intractable, without status migrainosus; E11.9 Type 2 diabetes mellitus without complications; F17.200 Nicotine dependence, unspecified, uncomplicated; Z88.8 Allergy status to other drugs, medicaments and biological substances
CPT/HCPCS: 99211

== ENCOUNTER → 2021-12-12 | Outpatient (CLI) | payer OTHER ==
--- NOTE | 2021-12-12 13:12 | CT ---
EXAMINATION TYPE: CT abdomen pelvis wo/w con CT DLP: 3852.1 mGycm, Automated exposure control for dose reduction was used. DATE OF EXAM: 12/12/2021 12:59 PM COMPARISON: Abdominal ultrasound 11/18/2021, CTA Abdomen aortic runoff 03/28/2021. CLINICAL INDICATION:Male, 51 years old with history of N28.89; Abnormal imaging of kidneys TECHNIQUE: Standard CT of the abdomen and pelvis before and after the uneventful administration of 100 cc of Isovue-370 intravenously. Delayed imaging was obtained. Coronal and sagittal reformats were performed. FINDINGS: LOWER CHEST: Right lower lobe medial subpleural patchy consolidation. ABDOMEN LIVER: Diffusely hypoattenuating parenchyma. No suspicious focal lesions. GALLBLADDER AND BILE DUCTS: Unremarkable. PANCREAS: Unremarkable. SPLEEN: Unremarkable. ADRENAL GLANDS: Unremarkable. KIDNEYS AND URETERS: No evidence of hydronephrosis or renal calculus. The kidneys enhance symmetrical ly. No suspicious mass. There is malrotation of the right kidney. Ultrasound finding represents promi nent renal calyx. Retroaortic left renal vein. Contrast is demonstrated within both collecting system s on the delayed phase. PELVIS BLADDER: Unremarkable REPRODUCTIVE: Coarse calcifications of the prostate gland are identified. ABDOMEN & PELVIS STOMACH AND BOWEL: Stomach and duodenum are unremarkable. Scattered distal colonic diverticulosis wit hout evidence for acute diverticulitis. The appendix is within normal limits. No evidence of bowel ob struction. PERITONEUM: No evidence of pneumoperitoneum or free fluid. VASCULATURE: No evidence of aortic aneurysm. Mild atherosclerotic calcification of the distal aorta a nd the iliac branches. Left common iliac artery stent identified and appears patent. MUSCULOSKELETAL: No acute osseous abnormalities. No aggressive osseous lesion. Straightening of the c ervical and lumbar spine. Mild degenerative disc disease most pronounced at L2-L3 with disc space amandeep rowing, endplate sclerosis, vacuum disc disease, and anterior osteophytosis. LYMPH NODES: No gross evidence for lymphadenopathy. SOFT TISSUE/ABDOMINAL WALL: Subxiphoid region abdominal wall hernia containing fat are demonstrated. IMPRESSION: 1. No concerning renal mass, calculus, or hydronephrosis. Ultrasound finding represents prominent re nal calyx. Similar malrotation of the right kidney. 2. Colonic diverticulosis without evidence for acute diverticulitis. 3. Right lower lobe subpleural consolidation likely representing infectious/inflammatory process. Fol low-up CT chest in 3 months is recommended.
== END | disposition home or self-care (01) ==
LOC: RADCTMAIN 10:29
PROVIDERS: ATTEND Family Medicine
DX: N28.89 Other specified disorders of kidney and ureter (principal); K57.30 Diverticulosis of large intestine without perforation or abscess without bleeding
CPT/HCPCS: 74178; Q9967

== ENCOUNTER 2022-02-24 12:27 | Day surgery (SDC) | payer OTHER ==
[2022-02-20 14:32] VITALS: BMI 35.9
[2022-02-24] MEDS ORDERED: LACTATED RINGERS 1,000 ML IV ONE ×2 (13:30)
[2022-02-24 13:31] VITALS: TEMP 97
[2022-02-24] MEDS ORDERED: MIDAZOLAM 2 MG/2 ML VIAL ONE (14:04)
[2022-02-24] MEDS ORDERED: methylPREDNISolone ACETATE 80 MG/ML 1 ML VIAL ONE (14:04)
[2022-02-24] MEDS ORDERED: IOPAMIDOL M200 10 ML VIAL ONE (14:04)
[2022-02-24] MEDS ORDERED: fentaNYL (PF) 50 MCG/ML 2 ML AMP ONE (14:04)
--- NOTE | 2022-02-24 14:14 | P.PCN ---
Date of Procedure: 02/24/22 Procedure(s) Performed: PREOPERATIVE DIAGNOSIS: 1- Lumbar Degenerative Disc Diseases 2-Lumbar spondylosis with Facet arthropathy without myelopathy. 3-lumbar radiculopathy POSTOPERATIVE DIAGNOSIS: Same as preop diagnosis. PROCEDURE 1. Lumbar epidural steroid injection under fluoroscopic guidance at the L4-5 level. (Fluoroscopy imaging was available in radiology department) 2. Lumbar epidurogram. ANESTHESIA: moderate sedation with intravenous Versed 2 mg ,and fentanyle 100 Mcg Sedation start time : 1407 Sedation end time : 1411 EBL: Minimal PROCEDURE INDICATION: The patient with low back pain and radiculitis symptoms unresponsive to conservative treatment. Fluoroscopy was used to optimize visualization of the needle placement and to maximize safety. PROCEDURE DESCRIPTION / TECHNIQUE: The patient was seen and identified in the preoperative area. Risks, benefits, complications including but not limited to infections ,bleeding ,allergic reaction to the medications ,nerve damage and not complete pain releife , and alternatives were discussed with the patient. The patient agreed to proceed with the procedure and signed the consent. IV was started, and vital signs were stable. Patient was taken to the OR and time out was completed. The patient was placed in the prone position on procedure table and a pillow was placed under the abdomen to reduce lumbar lordosis. The lumbosacral area was prepped and draped in the usual sterile fashion.ere closely monitored during the procedure. Conscious sedation was used during the procedure to decrease patients anxiety. Vital signs was monitered during the entire procedure. Using anterior-posterior fluoroscopy, the L4-5 interlaminar space was identified and the skin over this site was marked and then infiltrated with 1% lidocaine subcutaneously. Subsequently, a 20-gauge Tuohy epidural needle was inserted and advanced toward the epidural space using the ``Loss of resistance technique and guided by AP and lateral fluoroscopy. The correct needle position in the epidural space was verified with the injection of 2 mL of the water soluble contrast dye Isovue 200 contrast and observing an excellent epidurogram with the epidural spread of the dye, after negative aspiration for blood and CSF and in the absence of paresthesias. Again after negative aspiration, a 6 ml mixture containing 80 mg of Depo-medrol ( Preservetive Free ), and 2 ml of preservative free Normal Saline, and 2 ml of preservative free lidocaine 1% solution was injected and a washout of epidurogram was seen. Needle was withdrawn intact, skin was cleansed, and bandages were applied. COMPLICATIONS: None DISPOSITION / PLANS: The patient was placed in a supine position and transferred to the recovery area in a stable condition for observation. There was no evidenc e of lower extremity motor or sensory deficit after the procedure. Patient was discharged from the recovery room after meeting discharge criteria. Home discharge instructions were given to the patient by the staff. The patient was reexamined prior to discharge. The patient will schedule a follow up in the clinic in 2-4 weeks.
[2022-02-24] MEDS ORDERED: IV FLUID CONTINUATION 650 ML IV ONE (14:17)
[2022-02-24 14:22] VITALS: RESP 20
--- NOTE | 2022-02-24 14:31 | FL ---
EXAMINATION TYPE: FL guided pain mgmt statistic DATE OF EXAM: 02/24/2022 HISTORY: Fluoroscopy time 1 seconds of fluoroscopy provided. IMPRESSION: 1. Fluoroscopy time.
[2022-02-24 14:34] VITALS: BP 168/77; PULSE 71
== END 2022-02-24 14:46 | disposition home or self-care (01) ==
LOC: ORPAIN 12:27
PROVIDERS: ATTEND Specialist
DX: M51.16 Intervertebral disc disorders with radiculopathy, lumbar region (principal); M47.26 Other spondylosis with radiculopathy, lumbar region
CPT/HCPCS: 62323; J2250; J1040; J3010; Q9966

== ENCOUNTER 2022-05-21 11:44 | Day surgery (SDC) | payer OTHER ==
[~2022-05-21 11:44] MED LIST changes: -ALPRAZolam 0.25 MG TAB PO PRN; -ALPRAZolam 0.5 MG TAB PO PRN; -ASPIRIN 325 MG TAB PO PRN; -HEPARIN SODIUM,PORCINE 10,000 UNIT in SODIUM CHLORIDE 0.9% 1,000 ML IRRIGATION PRN; -HEPARIN SODIUM,PORCINE 2,500 UNIT in SODIUM CHLORIDE 0.9% 250 ML IRRIGATION PRN; +LACTATED RINGERS 1,000 ML IV SCH; +LIDOCAINE 1% (10MG/ML) FOR IV START INTRADERMA PRN; -SODIUM CHLORIDE 0.9% 1,000 ML in EMPTY BAG 1 BAG IV ONE; -ZOLPIDEM 5 MG TAB PO PRN
[2022-05-21] MEDS ORDERED: LACTATED RINGERS 1,000 ML IV ONE (12:20)
[2022-05-21 12:21] VITALS: TEMP 98.6
[2022-05-21] MEDS ORDERED: fentaNYL (PF) 50 MCG/ML 2 ML AMP ONE (12:29)
[2022-05-21] MEDS ORDERED: methylPREDNISolone ACETATE 80 MG/ML 1 ML VIAL ONE (12:29)
[2022-05-21] MEDS ORDERED: MIDAZOLAM 2 MG/2 ML VIAL ONE (12:29)
[2022-05-21] MEDS ORDERED: IOPAMIDOL M200 10 ML VIAL ONE (12:29)
--- NOTE | 2022-05-21 12:39 | P.PCN ---
Date of Procedure: 05/21/22 Procedure(s) Performed: PREOPERATIVE DIAGNOSIS: 1- Lumbar Degenerative Disc Diseases 2-Lumbar spondylosis with Facet arthropathy without myelopathy. 3-lumbar radiculopathy POSTOPERATIVE DIAGNOSIS: Same as preop diagnosis. PROCEDURE 1. Lumbar epidural steroid injection under fluoroscopic guidance at the L4-5 level. (Fluoroscopy imaging was available in radiology department) 2. Lumbar epidurogram. ANESTHESIA: moderate sedation with intravenous Versed 2 mg ,and fentanyle 100 Mcg Sedation start time : 1231 Sedation end time : 1237 EBL: Minimal PROCEDURE INDICATION: The patient with low back pain and radiculitis symptoms unresponsive to conservative treatment. Fluoroscopy was used to optimize visualization of the needle placement and to maximize safety. PROCEDURE DESCRIPTION / TECHNIQUE: The patient was seen and identified in the preoperative area. Risks, benefits, complications including but not limited to infections ,bleeding ,allergic reaction to the medications ,nerve damage and not complete pain releife , and alternatives were discussed with the patient. The patient agreed to proceed with the procedure and signed the consent. IV was started, and vital signs were stable. Patient was taken to the OR and time out was completed. The patient was placed in the prone position on procedure table and a pillow was placed under the abdomen to reduce lumbar lordosis. The lumbosacral area was prepped and draped in the usual sterile fashion.ere closely monitored during the procedure. Conscious sedation was used during the procedure to decrease patients anxiety. Vital signs was monitered during the entire procedure. Using anterior-posterior fluoroscopy, the L4-5 interlaminar space ( left paramedial )was identified and the skin over this site was marked and then infiltrated with 1% lidocaine subcutaneously. Subsequently, a 20-gauge Tuohy epidural needle was inserted and advanced toward the epidural space using the ``Loss of resistance technique and guided by AP and lateral fluoroscopy. The correct needle position in the epidural space was verified with the injection of 2 mL of the water soluble contrast dye Isovue 200 contrast and observing an excellent epidurogram with the epidural spread of the dye, after negative aspiration for blood and CSF and in the absence of paresthesias. Again after negative aspiration, a 6 ml mixture containing 80 mg of Depo-medrol ( Preservetive Free ), and 2 ml of preservative free Normal Saline, and 2 ml of preservative free lidocaine 1% solution was injected and a washout of epidurogram was seen. Needle was withdrawn intact, skin was cleansed, and bandages were applied. COMPLICATIONS: None DISPOSITION / PLANS: The patient was placed in a supine position and transferred to the recovery area in a stable condition for observation. There was no evidence of lower extremity motor or sensory deficit after the procedure. Patient was discharged from the recovery room after meeting discharge criteria. Home discharge instructions were given to the patient by the staff. The patient was reexamined prior to discharge. The patient will schedule a follow up in the clinic in 2-4 weeks.
[2022-05-21] MEDS ORDERED: IV FLUID CONTINUATION 1,000 ML IV ONE (12:45)
--- NOTE | 2022-05-21 12:48 | FL ---
EXAMINATION TYPE: FL guided pain mgmt statistic DATE OF EXAM: 05/21/2022 HISTORY: Fluoroscopy time 1 SEC FL TIME USED DAP .[id number] of fluoroscopy provided. IMPRESSION: 1. Fluoroscopy time.
[2022-05-21 13:05] VITALS: BP 164/83; PULSE 61; RESP 17
== END 2022-05-21 13:15 | disposition home or self-care (01) ==
LOC: ORPAIN 11:44
PROVIDERS: ATTEND Specialist
DX: M51.16 Intervertebral disc disorders with radiculopathy, lumbar region (principal); M47.26 Other spondylosis with radiculopathy, lumbar region; Z88.8 Allergy status to other drugs, medicaments and biological substances; Z91.048 Other nonmedicinal substance allergy status
CPT/HCPCS: 62323; J2250; J1040; J3010; Q9966

== ENCOUNTER → 2022-06-08 | Outpatient (CLI) | payer OTHER ==
--- NOTE | 2022-06-08 10:20 | P.PN ---
Subjective Progress Note Date: 06/08/22 A 52 yr old male with a history of severe and chronic LBP secondary to lumbar DDD and spondylosis with facet arthropathy without myelopathy presents today for evaluation s/p SHANTELLE L4-L5. Pt states he experienced 80% pain relief. With the increased after the procedure he is able to function without significant pain. Pain is provoked by bending, lifting. Pain is alleviated with chiropractic treatments in the past, home exercise as tolerated, meds (Tramadol, Flexil, Motrin), topicals, repositioning and rest. Interventional pain procedures completed include SHANTELLE L4-L5 x2 Patient is currently on Tramadol, Flexeril, Motrin Patient denies any side effects of the medication(s), denies excessive drows iness or sleepiness, denies suicidal ideation and reports that the current pain medication is helping to control the pain and improve activities of daily living. Patient denies any motor or sensory deficits. Patient denies any fever or night sweats, denies any change in the bowel movements or urination. Physical Examination: -Constitutional: Cooperative. Not in acute distress . - Neurologic: Cranial nerve II to XII intact. No focal neurological deficits. - Psychatric: Alert & oriented x 3. Matching mood & appropriate affect. Judgment and insight intact. - Musculoskeletal: Cervical spine: Muscle bulk/ tone/ strength in the bilateral upper extremities normal Lumbar spine: Motor bulk/ tone/ strength lower extremities , thigh and legs : 5/5 Assessment and plan: Chronic LBP secondary to lumbar DDD, spondylosis with facet arthropathy without myelopathy Pain improved significantly after lumbar epidural steroid injections 2 Patient will follow up in the pain clinic. When necessary Objective - Vital Signs Vital signs: Intake & Output 06/07/22 06/08/22 06/08/22 18:59 06:59 18:59 Weight 113.398 kg
[2022-06-08 10:28] VITALS: BP 155/80; PULSE 65; RESP 18; TEMP 98.7
== END ==
LOC: PNWHC3 09:45
PROVIDERS: ATTEND Specialist
DX: M51.36 Other intervertebral disc degeneration, lumbar region (principal); M47.816 Spondylosis without myelopathy or radiculopathy, lumbar region; G89.29 Other chronic pain; Z88.8 Allergy status to other drugs, medicaments and biological substances; Z79.82 Long term (current) use of aspirin; F17.200 Nicotine dependence, unspecified, uncomplicated
CPT/HCPCS: 99211

== ENCOUNTER → 2022-09-24 | Outpatient (CLI) | payer OTHER ==
[2022-09-24 10:07] VITALS: BP 119/77; PULSE 62; RESP 15; TEMP 97.8
--- NOTE | 2022-09-24 14:03 | P.PAINPG ---
PQRS Measure Charge Sheet Comment: A 52 yr old male with a history of severe and chronic LBP secondary to lumbar DDD and spondylosis with facet arthropathy without myelopathy presents today for evaluation. PT states his pain level is currently at 9/10 in intensity, shooting in character w radiation towards the BL thighs. Pain is provoked by bending, lifting. Pain is alleviated with chiropractic treatments in the past, home exercise as tolerated, use of a home inversion table, meds (Tramadol, Flexil, Motrin), topicals, repositioning and rest. Oswestry axial pain score of 26. Interventional pain procedures completed include SHANTELLE L4-L5 x2 Patient is currently on Neurontin, Tramadol, Flexeril, Motrin, ASA Patient denies any side effects of the medication(s), denies excessive drowsiness or sleepiness, denies suicidal ideation and reports that the current pain medication is helping to control the pain and improve activities of daily living. Patient denies any motor or sensory deficits. Patient denies any fever or night sweats, denies any change in the bowel movements or urination. Physical Examination: -Constitutional: Cooperative. Not in acute distress . - Neurologic: Cranial nerve II to XII intact. No focal neurological deficits. - Psychatric: Alert & oriented x 3. Matching mood & appropriate affect. Judgment and insight intact. - Musculoskeletal: Cervical spine: Muscle bulk/ tone/ strength in the bilateral upper extremities normal Lumbar spine: Motor bulk/ tone/ strength lower extremities , thigh and legs : 5/5 Vertebral body TTP over L4 BL SLR positive at 35 degrees Assessment and plan: Chronic LBP secondary to lumbar DDD, spondylosis with facet arthropathy without myelopathy Recommendation of PT x 6 wks re: M51.36 May follow up within 6 wks for a re evaluation. All questions answered. PQRS Narrative: Smoking Status Current every day smoker Hx Alcohol Use (MH) No Home Medications: Ambulatory Orders Cyclobenzaprine [Flexeril] 10 mg PO TID PRN 10/26/15 Gabapentin [Neurontin] 900 mg PO TID 10/26/15 SUMAtriptan [Imitrex] 50 mg PO DAILY PRN 10/26/15 Aspirin 81 mg PO DAILY 10/27/15 Garlic 1 cap PO DAILY 10/27/15 Ascorbic Acid [Vitamin C] 500 mg PO DAILY 01/01/17 Cholecalciferol [Vitamin D3 (25 Mcg = 1000 Iu)] 2,000 unit PO DAILY 01/01/17 Melatonin 5 mg PO HS 01/01/17 Vitamin E 100 unit PO DAILY 01/01/17 Ginkgo Biloba [place] Extract [Ginkgo Biloba] 30 mg PO DAILY 06/17/18 lamoTRIgine [LaMICtal] 200 mg PO HS 04/24/20 hydrOXYzine pamoate [hydrOXYzine PAMOATE] 50 mg PO BID 08/13/20 Metoprolol Succinate [Toprol XL] 50 mg PO DAILY 05/16/21 OLANZapine 10 mg PO HS 05/16/21 Omeprazole [PriLOSEC] 40 mg PO DAILY 05/16/21 Rosuvastatin Calcium [Crestor] 20 mg PO HS 05/16/21 amLODIPine [Norvasc] 5 mg PO HS 05/16/21 traMADol HCL 50 mg PO DIRECTED PRN 05/16/21 Nitroglycerin Sl Tabs [Nitrostat] 0.4 mg SUBLINGUAL Q5M PRN #100 tab 05/21/21 Furosemide [Lasix] 20 mg PO DAILY #20 tab 09/01/21 Ibuprofen [Motrin] 800 mg PO Q8HR PRN 02/20/22 Controlled Substance Measures - Controlled Substance Measures Is patient prescribed a controlled substance at discharge?: No
== END ==
LOC: PNWHC3 09:24
PROVIDERS: ATTEND Specialist
DX: M51.36 Other intervertebral disc degeneration, lumbar region (principal); M47.816 Spondylosis without myelopathy or radiculopathy, lumbar region; F17.200 Nicotine dependence, unspecified, uncomplicated; G89.29 Other chronic pain; Z79.82 Long term (current) use of aspirin; Z88.8 Allergy status to other drugs, medicaments and biological substances; Z91.048 Other nonmedicinal substance allergy status
CPT/HCPCS: 99211

== ENCOUNTER → 2023-07-05 | Outpatient (CLI) | payer OTHER ==
--- NOTE | 2023-07-05 17:11 | US ---
EXAMINATION TYPE: US scrotum with doppler. Grayscale and color Doppler Duplex imaging performed of eric garcia scrotum. DATE OF EXAM: 07/05/2023 COMPARISON: NONE CLINICAL INDICATION: Male, 53 years old with history of N50.811 Rt Testicular Pain; Right testicle pa in x many years. Hx vasectomy. EXAM MEASUREMENTS: TESTICLES: Right Testicle: 4.6 x 3.6 x 2.3 cm Left Testicle: 5.0 x 2.9 x 2.3 cm EPIDIDYMIS HEAD: Right Epididymis: 1.0 x 0.9 x 1.1 cm ductal dilation on the right. Left Epididymis: 1.0 x 1.1 x 1.3 cm Doppler performed to assess for testicular vascularity; bilateral color flow and waveforms are seen. Presence of hydroceles: Yes, right: 2.2 x 0.6 x 0.9 cm. Left: 2.4 x 0.9 x 1.2 cm. Presence of varicoceles: Not seen Complex area seen midline scrotum: 2.5 x 1.3 x 1.2 cm. Right epididymal body and tail appear prominent in comparison to left. *Hyperechoic focus seen adjacent to right testicle: 0.2 x 0.2 x 0.3 cm. Favored to represent vasectom y clip. A couple microlithiasis seen within left testicle, 2 mm greatest dimension. IMPRESSION: 1. Ductal dilation of the epididymis on the right which can be seen in setting of vasectomy changes. 2. Appropriate arterial and venous spectral waveforms to the testes. 3. Small bilateral hydroceles.
== END | disposition home or self-care (01) ==
LOC: RADUSWWP 15:51
PROVIDERS: ATTEND Family Medicine
DX: N43.3 Hydrocele, unspecified (principal); N50.89 Other specified disorders of the male genital organs; N50.811 Right testicular pain; Z98.52 Vasectomy status
CPT/HCPCS: 76870; 93975

== ENCOUNTER → 2023-09-16 | Outpatient (CLI) | payer OTHER ==
[2023-09-16 10:43] VITALS: BP 144/71; PULSE 61; RESP 16
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
== END ==
LOC: PNWHC3 09:56
PROVIDERS: ATTEND Specialist
DX: M47.816 Spondylosis without myelopathy or radiculopathy, lumbar region (principal); M51.36 Other intervertebral disc degeneration, lumbar region; F17.200 Nicotine dependence, unspecified, uncomplicated; Z88.8 Allergy status to other drugs, medicaments and biological substances
CPT/HCPCS: 99211

== ENCOUNTER 2023-10-05 12:16 | Day surgery (SDC) | payer OTHER ==
[~2023-10-05 12:16] MED LIST changes: -LIDOCAINE 1% (10MG/ML) FOR IV START INTRADERMA PRN
[2023-10-05 12:38] VITALS: RESP 16; TEMP 98
[2023-10-05] MEDS ORDERED: ROPIVACAINE 5MG/ML 20ML VIAL ONE (13:42)
[2023-10-05] MEDS ORDERED: methylPREDNISolone ACETATE 80 MG/ML 1 ML VIAL ONE (13:42)
[2023-10-05] MEDS ORDERED: IOPAMIDOL M300 15ML VIAL ONE (13:42)
--- NOTE | 2023-10-05 14:02 | P.PCN ---
Description of Procedure: PREOPERATIVE DIAGNOSIS: 1- Lumbar Degenerative Disc Diseases 2-Lumbar spondylosis with Facet arthropathy without myelopathy. 3-lumbar spinal stenosis POSTOPERATIVE DIAGNOSIS: 1-lumbar degenerative disc disease. 2-lumbar spondylosis with facet arthropathy without myelopathy. 3-lumbar spinal stenosis. PROCEDURE Injection of radio contrast material into L2-3 interspace, interpretation of epidurogram, injection of steroid at L2-3 epidural space under fluoroscopic guidance. ANESTHESIA: Lidocaine 1% subcutaneously. In OR continuous pulse ox, EKG, blood pressure and verbal communication was maintained with the patient. EBL: Minimal PROCEDURE INDICATION: Before the procedure were discussed with the patient detailed procedure, alternatives, complications including infection, bleeding, nerve damage, paralysis all of which could be permanent. Patient understands and all questions were answered. PROCEDURE DESCRIPTION : After getting consent, patient in OR in prone position. Back was prepped with chlorhexidine and draped in sterile fashion. After injecting 10 mL of 1% lidocaine subcutaneously, a 20-gauge Tuohy needle was introduced at L2-3 interspace with loss of resistance technique using a syringe filled with air. Negative CSF, negative blood, negative paresthesia. Needle position was confirmed with AP and lateral view of the fluoroscope. After repeat negative aspiration 2 mL of Omnipaque 200 water soluble contrast was injected. Contrast was noted in the epidural space. No contrast was noted into intrathecal or intravascular space. After repeat negative aspiration 6 mL solution was injected intermittently which consists of 5 mL of preservative-free normal saline mixed with 1 mL of 80 mg Depo-Medrol. Needle was withdrawn intact. Skin was cleansed and Band-Aids was applied. DISPOSITION / PLANS: The patient tolerated the procedure well. No complication. The patient was placed in a supine position and transferred to the recovery area in a stable condition for observation. There was no evidence of lower extremity motor or sensory deficit after the procedure. Patient was discharged from the recovery room after meeting discharge criteria. Home discharge instructions were given to the patient by the staff. The patient was reexamined prior to discharge. The patient will schedule a follow up in the clinic in 2-4 weeks.
[2023-10-05 14:04] VITALS: BP 116/48; PULSE 53
--- NOTE | 2023-10-05 14:35 | FL ---
EXAMINATION TYPE: FL guided pain mgmt statistic Intraoperative/procedural fluoroscopic services were provided. Total fluoroscopy time is 11.2 seconds with a total of 2 submitted images to PACS. Please s ee the operative/procedural note for further details. DAP: [id number] mGym2
== END 2023-10-05 14:13 | disposition home or self-care (01) ==
LOC: ORPAIN 12:16
PROVIDERS: ATTEND Pain Medicine Interventional Pain Medicine
DX: M48.061 Spinal stenosis, lumbar region without neurogenic claudication (principal); M47.816 Spondylosis without myelopathy or radiculopathy, lumbar region; M51.36 Other intervertebral disc degeneration, lumbar region; Z88.8 Allergy status to other drugs, medicaments and biological substances; Z79.82 Long term (current) use of aspirin; Z79.1 Long term (current) use of non-steroidal anti-inflammatories (NSAID)
CPT/HCPCS: 62323; Q9967; J2795; J1010

== ENCOUNTER → 2023-11-01 | Outpatient (CLI) | payer OTHER ==
[2023-11-01 10:39] VITALS: BP 134/79; PULSE 59; RESP 16; TEMP 97.5
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
== END ==
LOC: PNWHC3 09:29
PROVIDERS: ATTEND Specialist
DX: M54.16 Radiculopathy, lumbar region
CPT/HCPCS: 99211

== ENCOUNTER → 2024-01-12 | Outpatient (CLI) | payer OTHER ==
[2024-01-12 10:29] VITALS: BP 162/86; PULSE 65; RESP 16; TEMP 96.8
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
== END ==
LOC: PNWHC3 10:03
PROVIDERS: ATTEND Specialist
DX: M47.26 Other spondylosis with radiculopathy, lumbar region (principal); F17.200 Nicotine dependence, unspecified, uncomplicated; Z88.8 Allergy status to other drugs, medicaments and biological substances
CPT/HCPCS: 99211

== ENCOUNTER 2024-01-28 11:27 | Day surgery (SDC) | payer OTHER ==
[2024-01-28] MEDS ORDERED: LACTATED RINGERS 1,000 ML IV SCH (11:53)
[2024-01-28 12:00] VITALS: RESP 18; TEMP 98.9
[2024-01-28] MEDS ORDERED: IOPAMIDOL M300 15ML VIAL ONE (13:10)
[2024-01-28] MEDS ORDERED: DEXAMETHASONE SOD PHOSPHATE 10 MG/ML 1 ML VIAL ONE (13:10)
[2024-01-28] MEDS ORDERED: ROPIVACAINE 5MG/ML 20ML VIAL ONE (13:10)
[2024-01-28 13:40] VITALS: BP 121/60; PULSE 57
--- NOTE | 2024-01-28 13:41 | P.PCN ---
Description of Procedure: PREOPERATIVE DIAGNOSIS: 1-Lumbar radiculopathy . 2-lumbar degenerative disc disease. 3-lumbar spondylosis with lumbar facet arthropathy without myelopathy POSTOPERATIVE DIAGNOSIS: 1-lumbar radiculopathy. 2-lumbar degenerative disc disease. 3-lumbar spondylosis with facet arthropathy without myelopathy PROCEDURE 1. Transforaminal epidural steroid injection under fluoroscopic guidance at RIGHT L3-4 and L4-5 level. (Fluoroscopy images stored on file in the radiology Department ) 2. Lumbar epidurogram . ANESTHESIA: Local with 1% lidocaine 5 ml. subcutaneously. Continuous pulse ox, EKG, blood pressure and verbal communication was maintained with the patient. EBL: Minimal PROCEDURE INDICATION: The patient with low back pain and radiculopathy symptoms unresponsive to conservative treatment. The patient was seen and identified in the preoperative area. Risks, benefits, complications, and alternatives were discussed with the patient. The patient agreed to proceed with the procedure and signed the consent. IV was started, and vital signs were stable. PROCEDURE DESCRIPTION / TECHNIQUE: After getting consent, patient was taken to the OR and time out was completed. The patient was placed in the prone position on procedure table and a pillow was placed under the abdomen to reduce lumbar lordosis. The lumbosacral area was prepped and draped in the usual sterile fashion. Critical pause was taken. After injecting 5 mL of plain 1% lidocaine subcutaneously, under oblique view of the fluoroscope, a 22-gauge spinal needle was introduced under the tunnel view of the fluoroscope on the RIGHT side L3-4 and the needle was advanced so that the tip of the needle was at the posterior inferior quadrant of the intervert ebral foramen at the lateral view of the fluoroscope and in the lateral third of the facet column in the AP view of the fluoroscope. Negative CSF, negative blood, negative paresthesia. After needle position confirmation by AP and cross table lateral view, 3 mL of Isovue-M 200 contrast was injected under continuous fluoroscope. No contrast was noted in the intrathecal or intravascular space. The epidurogram was noted. Again after repeated negative aspiration 2.5 mL solution was injected which consists 1 mL of normal saline mixed with 1.5 mL of 15 mg dexamethasone. Needle was removed . Same procedure was repeated at the RIGHT L4-5 level , using contrast under continuous fluoroscopy and using same amount of dexamethasone. At the end of the procedure, skin was cleansed, and bandages were applied. DISPOSITION / PLANS: No complication. The patient tolerated the procedure well. The patient was placed in a supine position and transferred to the recovery area in a stable condition for observation. There was no evidence of lower extremity motor or sensory deficit after the procedure. Patient was discharged from the recovery room after meeting discharge criteria. Home discharge inst ructions were given to the patient by the staff. The patient was reexamined prior to discharge.
--- NOTE | 2024-01-28 13:49 | FL ---
EXAMINATION TYPE: FL guided pain mgmt statistic DATE OF EXAM: 01/28/2024 1:43 PM COMPARISON: Pre Operative Images if available both CT/MRI or plain film CLINICAL INDICATION: Male, 53 years old with history of Transforaminal Inj; TECHNIQUE: FL guided pain mgmt statistic, multiple fluoroscopic images provided for procedure. Total fluoroscopy time: 11.2 seconds Total submitted images to PACS: 6 DAP: Not reported mGym2 Gycm2 uGym2 cGycm2 or equivalent. FINDINGS: IMPRESSION: 1. Report was generated for administrative purposes only. 2. Please see the operative/procedural note for further details. [facility], , 01/28/2024 1:47 PM
== END 2024-01-28 14:00 | disposition home or self-care (01) ==
LOC: ORPAIN 11:27
PROVIDERS: ATTEND Pain Medicine Interventional Pain Medicine
DX: M47.26 Other spondylosis with radiculopathy, lumbar region (principal); M51.16 Intervertebral disc disorders with radiculopathy, lumbar region; Z88.8 Allergy status to other drugs, medicaments and biological substances; Z79.1 Long term (current) use of non-steroidal anti-inflammatories (NSAID); Z79.82 Long term (current) use of aspirin
CPT/HCPCS: 64483; 64484; J1100; Q9967; J2795

== ENCOUNTER → 2024-02-24 | Outpatient (CLI) | payer OTHER ==
[2024-02-24 09:49] VITALS: BP 142/82; PULSE 74; RESP 16
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
== END ==
LOC: PNWHC3 09:33
PROVIDERS: ATTEND Specialist
DX: M47.26 Other spondylosis with radiculopathy, lumbar region (principal); F17.200 Nicotine dependence, unspecified, uncomplicated; Z88.8 Allergy status to other drugs, medicaments and biological substances
CPT/HCPCS: 99211

== ENCOUNTER → 2024-07-04 | Outpatient (CLI) | payer OTHER ==
--- NOTE | 2024-07-05 09:39 | CA ---
Transthoracic Echo Report Name: Seven Cameron Age: 54 Gender: M : 1970 Exam Date: 07/04/2024 14:06 Exam Location: [facility] Ht (in): 70 Wt (lb): 260 Ordering Physician: MICHAEL MAYNARD DO Attending/Referring Phys: Makayla Cooper Director Of Quality Raya Buchanan RDCS Procedure CPT: Indications: I25.10 ATHSCL HEART DISEASE OF [place] CORONARY ART Cardiac Hx: Technical Quality: Good Contrast 1: Total Dose (mL): Contrast 2: Total Dose (mL): MEASUREMENTS (Male / Female) Normal Values 2D ECHO LV Diastolic Diameter PLAX 4.3 cm 4.2 - 5.9 / 3.9 - 5.3 cm LV Systolic Diameter PLAX 2.9 cm IVS Diastolic Thickness 1.1 cm 0.6 - 1.0 / 0.6 - 0.9 cm LVPW Diastolic Thickness 1.3 cm 0.6 - 1.0 / 0.6 - 0.9 cm LV Relative Wall Thickness 0.6 LVOT Diameter 2.5 cm LV Diastolic Volume MOD BP 108.3 cm??? 67 - 155 / 56 - 104 cm??? LV Systolic Volume MOD BP 44.5 cm??? 22 - 58 / 19 - 49 cm??? LV Ejection Fraction MOD BP 58.9 % >= 55 % LV Cardiac Index MOD BP 1504.9 cm???/min???m??? LV Diastolic Volume MOD 4C 82.1 cm??? LV Systolic Volume MOD 4C 36.1 cm??? LV Ejection Fraction MOD 4C 56.1 % LV Cardiac Index MOD 4C 1086.6 cm???/min???m??? LV Diastolic Length 4C 7.5 cm LV Systolic Length 4C 6.1 cm LV Diastolic Volume MOD 2C 122.0 cm??? LV Systolic Volume MOD 2C 51.6 cm??? LV Ejection Fraction MOD 2C 57.7 % LV Cardiac Index MOD 2C 1660.3 cm???/min???m??? LV Diastolic Length 2C 8.8 cm LV Systolic Length 2C 6.7 cm LA Volume 47.1 cm??? 18 - 58 / 22 - 52 cm??? LA Volume Index 19.1 cm???/m??? 16 - 28 cm???/m??? Ascending Aorta Diameter 2.8 cm DOPPLER AV Peak Velocity 160.1 cm/s AV Peak Gradient 10.3 mmHg AV Mean Velocity 105.0 cm/s AV Mean Gradient 5.0 mmHg AV Velocity Time Integral 28.8 cm LVOT Peak Velocity 123.7 cm/s LVOT Peak Gradient 6.1 mmHg LVOT Velocity Time Integral 23.1 cm LVOT Stroke Volume 109.4 cm??? LVOT Stroke Volume Index 46.9 ml/m??? LVOT Cardiac Index 2580.3 cm???/min???m??? AV Area Cont Eq vti 3.8 cm??? AV Area Cont Eq pk 3.7 cm??? MV Area PHT 2.4 cm??? Mitral E Point Velocity 44.6 cm/s Mitral A Point Velocity 58.6 cm/s Mitral E to A Ratio 0.8 MV Deceleration Time 318.1 ms PV Peak Velocity 91.3 cm/s PV Peak Gradient 3.3 mmHg FINDINGS Left Ventricle Left ventricular ejection fraction is estimated at 55-60 %. Mildly increased septal wall thickness. Left ventricular cavity size normal. No obvious regional wall motion abnormalities. Right Ventricle Normal right ventricular size and function. Unable to estimate the right ventricular systolic pressure. Right Atrium Normal right atrial size. Left Atrium Normal left atrial size. Mitral Valve Structurally normal mitral valve. No evidence for mitral valve prolapse. No mitral stenosis. Trace mitral regurgitation. Aortic Valve Trileaflet aortic valve. No aortic valve stenosis or regurgitation. Tricuspid Valve Structurally normal tricuspid valve. No tricuspid stenosis. Trace tricuspid regurgitation. Pulmonic Valve Structurally normal pulmonic valve. No pulmonic stenosis. No pulmonic regurgitation. Pericardium No pericardial effusion. Aorta Normal size aortic root and proximal ascending aorta. CONCLUSIONS Left ventricular ejection fraction 55 to 60% Mildly increased left ventricular wall thickness Trace mitral regurgitation Trace tricuspid regurgitation Previewed by: Dr. Abiodun Berry DO (Electronically Signed) Final Date: 05 July 2024 09:38
== END | disposition home or self-care (01) ==
LOC: RADECHMAIN 13:57
PROVIDERS: ATTEND Family Medicine
DX: I08.1 Rheumatic disorders of both mitral and tricuspid valves (principal); I25.10 Atherosclerotic heart disease of native coronary artery without angina pectoris
CPT/HCPCS: 93306

== ENCOUNTER → 2024-07-12 | Outpatient (CLI) | payer OTHER ==
--- NOTE | 2024-07-12 12:17 | CTL ---
EXAMINATION TYPE: CT Low Dose Lung DATE OF EXAM ORDERED: 07/12/2024 COMPARISON: Chest radiograph 08/22/2021, CT chest 01/30/2020, CT neck chest 03/28/2018 CLINICAL INDICATION: Male, 54 years old with history of Z12.2 LUNG CA SCR Z87.891 FORMER SMOKER; PHH, HISTORY OF SMOKER, Lung cancer screening, History of Smoking/tobacco use. TECHNIQUE: Low dose computed tomography scan was performed through the chest at 1 mm thick sections a nd reconstructed images in multiple planes at 1 mm and [address] DLP: 90.[address] CTDI: 2.40 mGy Automated exposure control for dose reduction was used. CT DIAGNOSTIC QUALITY: Satisfactory FINDINGS: Nodules: No clinically significant pulmonary nodules. LUNGS: COPD: Severity: Mild Fibrosis: Severity: None Lymph nodes: None Other findings: Bibasilar subsegmental atelectasis. RIGHT PLEURAL SPACE: Effusion: None Calcification: None Thickening: None Pneumothorax: None LEFT PLEURAL SPACE: Effusion: None Calcification: None Thickening: None Pneumothorax: None HEART: Heart Size: Normal Coronary Calcification: Small Pericardial Effusion: Trace OTHER FINDINGS: Upper abdomen: None Bony thorax: None Supraclavicular region: None Other: None IMPRESSION: 1. No clinically significant pulmonary nodules. 2. Mild emphysematous changes. CT LUNG RAD AND CT CHEST RECOMMENDATION: Lung-Rad 1 Negative: Continue annual screening with LDCT in 12 months. S Modifier (other clinically significant findings): None [facility], , 07/12/2024 12:15 PM
== END | disposition home or self-care (01) ==
LOC: RADCTMAIN 10:48
PROVIDERS: ATTEND Emergency Medicine Emergency Medical Services
DX: Z12.2 Encounter for screening for malignant neoplasm of respiratory organs (principal); J43.9 Emphysema, unspecified; Z87.891 Personal history of nicotine dependence
CPT/HCPCS: 71271

== ENCOUNTER → 2024-07-21 | Outpatient (CLI) | payer OTHER ==
--- NOTE | 2024-07-21 08:53 | US ---
EXAMINATION TYPE: US abdomen complete DATE OF EXAM: 07/21/2024 COMPARISON: NONE CLINICAL INDICATION: Male, 54 years old with history of Z87.891 PERS HX NICOTINE DEPENDENCE; pain and bloating limited due to bowel gas and TECHNIQUE: Grayscale and color Doppler imaging of the abdomen was performed. FINDINGS: EXAM MEASUREMENTS: Liver Length: 18.4 cm Gallbladder Wall: .2 cm CBD: .5 cm, color Doppler imaging was utilized to isolate the common bile duct for measurement. Spleen: 13 cm Right Kidney: 9.3 x 4.0 x 3.4 cm Left Kidney: 11.8 x 6.1 x 5.1 cm Pancreas: Obscured by bowel gas Liver: Increased attenuation, no dilated ducts, masses or cysts. Gallbladder: No stones seen Evidence for sonographic Feliz's sign: No CBD: wnl Spleen: wnl Right Kidney: wnl, No hydronephrosis, calculi or masses seen Left Kidney: wnl, No hydronephrosis, calculi or masses seen Upper IVC: wnl Abd Aorta: limited due to bowel gas The liver is homogenous with increased echotexture.. The intrahepatic portion of the IVC and proxima l abdominal aorta are within normal limits. There is no evidence of cholelithiasis. Common bile priscilla t is unremarkable. The visualized portions of the pancreas are homogenous. The spleen is unremarkab le. Kidneys are symmetric and free of hydronephrosis. No renal lesions are seen. IMPRESSION: 1. No evidence for acute process. 2. Hepatic steatosis. [facility], , 07/21/2024 8:51 AM
== END | disposition home or self-care (01) ==
LOC: RADUSWWP 07:52
PROVIDERS: ATTEND Emergency Medicine Emergency Medical Services
DX: K76.0 Fatty (change of) liver, not elsewhere classified (principal); Z87.891 Personal history of nicotine dependence
CPT/HCPCS: 76700

== ENCOUNTER 2024-08-25 12:14 | Day surgery (SDC) | payer OTHER ==
[2024-08-24 10:48] VITALS: BMI 37.3
--- NOTE | 2024-08-25 13:03 | XR ---
EXAMINATION TYPE: XR lumbar spine 2 or 3V DATE OF EXAM: 08/25/2024 12:56 PM COMPARISON: [id number] CLINICAL INDICATION: Male, 54 years old with history of M54.50, TECHNIQUE: 3 views of the lumbar spine FINDINGS: There are 5 lumbar type vertebral bodies identified. The lumbar spine shows satisfactory alignment without evidence of acute fracture or dislocation. Vertebral body heights are within normal limits. Moderate degenerative disc space narrowing throughout with vacuum disc changes noted at L2-3 . Ventral and dorsal spondylosis. Mild facet joint arthropathy. The overlying soft tissue appears u nremarkable. IMPRESSION: No acute fracture or dislocation is seen in the lumbar spine.ICD 10 NO FRACTURE, INITIAL EVALUATION [facility], , 08/25/2024 1:01 PM
--- NOTE | 2024-08-25 13:08 | XR ---
EXAMINATION TYPE: XR cervical spine comp DATE OF EXAM: 08/25/2024 12:55 PM * COMPARISON: [id number] CLINICAL INDICATION: Male, 54 years old with history of M54.2, TECHNIQUE: Frontal, lateral, oblique, swimmers, and open mouth view of the cervical spine are obtaine d. FINDINGS: The cervical spine is visualized in its entirety from C1 thru the top of T1 level. It is s atisfactory in alignment without evidence of acute fracture or dislocation. The pre-vertebral soft t issue appears within normal limits. Mild scattered degenerative disc space narrowing and spondylosis. The C1-C2 articulation is unremarkable on the open mouth view. The oblique images are within normal limits. IMPRESSION: No acute fracture or dislocation is seen in the cervical spine.ICD 10 NO FRACTURE, INITI AL EVALUATION [facility], , 08/25/2024 1:06 PM
[2024-08-25 14:38] VITALS: TEMP 98.2
[2024-08-25] MEDS: IV FLUID CONTINUATION 1,000 ML IV ONE (14:39)
[2024-08-25] MEDS: LACTATED RINGERS 1,000 ML IV SCH (14:40)
[2024-08-25] MEDS ORDERED: PROPOFOL 10 MG/ML 20 ML VIAL IV ONE (15:49)
[2024-08-25] MEDS ORDERED: LIDOCAINE 2% (PF) 20 MG/ML 5 ML VIAL ONE (15:49)
--- NOTE | 2024-08-25 16:00 | P.PCN ---
Date of Procedure: 08/25/24 Procedure(s) Performed: BRIEF HISTORY: Patient is a 54-year-old, pleasant, white male scheduled for an upper endoscopy as a part evaluation of longstanding history of GERD and Vigil's esophagus. PROCEDURE PERFORMED: Esophagogastroduodenoscopy with biopsy. PREOPERATIVE DIAGNOSIS: Longstanding history of GERD and Vigil's esophagus. IV sedation per anesthesia. PROCEDURE: After informed consent was obtained, the patient was brought into the endoscopy unit. IV sedation was administered by Anesthesia under continuous monitoring. Initially the Olympus GIF-140 video endoscope was inserted into the mouth. Esophagus intubated without any difficulty. It was gradually advanced into the stomach and duodenum and carefully examined. The bulb and the second part of the duodenum appeared normal. The scope at this time was withdrawn to the stomach, adequately insufflated with air, and upon careful examination, mucosa of the antrum, had mild gastritis and biopsies were done from this area. Mucosa body, cardia and the fundus appeared normal. The scope was then withdrawn into the esophagus. The GE junction was located at 41 cm from the incisors. There was a 2 mm and 3 mm tongues of Vigil's appearing mucosa just proximal to the GE junction that was biopsied. The rest of the esophagus appeared normal. There were no erosions or ulcerations seen and the patient tolerated the procedure well. IMPRESSION: 1. Short segment Vigil's esophagus. 2. Mild antral gastritis. RECOMMENDATIONS: The findings of this examination were discussed with the patient as well as his family. He was advised to follow-up with the biopsy results. Continue with omeprazole 20 mg daily and follow antireflux measures.. If the biopsy confirms the presence of Vigil's esophagus, recommend repeat upper endoscopy in 3 years. In the meantime he will continue with omeprazole 20 mg daily and follow antireflux measures.
[2024-08-25 16:28] VITALS: BP 128/82; PULSE 60; RESP 16
== END 2024-08-25 16:37 | disposition home or self-care (01) ==
LOC: ORWHC2ENDO 12:14
PROVIDERS: ATTEND Internal Medicine Gastroenterology
DX: K29.50 Unspecified chronic gastritis without bleeding (principal); K31.9 Disease of stomach and duodenum, unspecified; K22.70 Barrett's esophagus without dysplasia; K21.9 Gastro-esophageal reflux disease without esophagitis; E78.5 Hyperlipidemia, unspecified; I11.0 Hypertensive heart disease with heart failure; I50.9 Heart failure, unspecified; J44.9 Chronic obstructive pulmonary disease, unspecified; G47.33 Obstructive sleep apnea (adult) (pediatric); Z87.891 Personal history of nicotine dependence; Z79.82 Long term (current) use of aspirin; Z79.899 Other long term (current) drug therapy; Z98.890 Other specified postprocedural states
CPT/HCPCS: 88305; 88342; 72050; 72100; 43239; J2704; J2003

== ENCOUNTER 2024-08-28 13:30 | Emergency (ER) | payer OTHER ==
[2024-08-28 13:56] VITALS: BP 151/65; PULSE 93; TEMP 98.4
--- NOTE | 2024-08-28 14:09 | ED ---
General Adult HPI - General Chief complaint: Shortness of Breath Stated complaint: L sided rib pain Time Seen by Provider: 08/28/24 13:58 Source: patient, RN notes reviewed Mode of arrival: ambulatory Limitations: no limitations - History of Present Illness Initial comments: Patient is a 54-year-old male present to the emergency department with concerns for left rib injury. Patient had a fall down steps 5 days ago. Patient had mild discomfort and then sneezed 2 days ago. Patient has had increased discomfort since that time. Patient did go to [facility] and had x-rays as well as CT scan done. No increase in discomfort since that time however has not improved either. Patient was told his spleen looks good. Patient believes he did have CT scan of his chest and abdomen and pelvis. - Related Data Home Medications Medication Instructions Recorded Confirmed Cyclobenzaprine [Flexeril] 10 mg PO TID PRN 10/26/15 08/25/24 Gabapentin [Neurontin] 300 mg PO TID 10/26/15 08/25/24 SUMAtriptan [Imitrex] 50 mg PO DAILY PRN 10/26/15 08/25/24 Aspirin 81 mg PO DAILY 10/27/15 08/25/24 Garlic 1 cap PO DAILY 10/27/15 08/25/24 Melatonin 5 mg PO HS 01/01/17 08/25/24 lamoTRIgine [LaMICtal] 200 mg PO HS 04/24/20 08/25/24 hydrOXYzine pamoate [hydrOXYzine 50 mg PO BID 08/13/20 08/25/24 PAMOATE] Metoprolol Succinate [Toprol XL] 50 mg PO DAILY 05/16/21 08/25/24 OLANZapine 10 mg PO HS 05/16/21 08/25/24 Omeprazole [PriLOSEC] 40 mg PO DAILY 05/16/21 08/25/24 Rosuvastatin Calcium [Crestor] 20 mg PO HS 05/16/21 08/25/24 amLODIPine [Norvasc] 5 mg PO HS 05/16/21 08/25/24 Ibuprofen [Motrin] 600 mg PO Q8HR PRN 08/24/24 08/25/24 Previous Rx's Medication Instructions Recorded Nitroglycerin Sl Tabs [Nitrostat] 0.4 mg SUBLINGUAL Q5M PRN #100 tab 05/21/21 HYDROcodone/APAP 7.5-325MG [[place] 1 tab PO Q4H PRN 3 Days #15 tab 01/12/24 7.5-325] Allergies Allergy/AdvReac Type Severity Reaction Status Date / Time prednisone AdvReac PTSD- Verified 08/28/24 13:56 ANGRY .- cannot take fci. topiramate [From Topamax] AdvReac increased Verified 08/28/24 13:56 anxiety nicotine patch AdvReac "Skin Uncoded 08/28/24 13:56 peeled off" Review of Systems ROS Statement: Those systems with pertinent positive or pertinent negative responses have been documented in the HPI. ROS Other: All systems not noted in ROS Statement are negative. Constitutional: Denies: fever Eyes: Denies: eye pain ENT: Denies: ear pain Respiratory: Reports: as per HPI. Denies: cough Cardiovascular: Reports: chest pain Endocrine: Denies: fatigue Gastrointestinal: Denies: abdominal pain Past Medical History Past Medical History: Coronary Artery Disease (CAD), Chest Pain / Angina, Heart Failure, COPD, CVA/TIA, GI Bleed, Hyperlipidemia, Hypertension, Sleep Apnea/CPAP/BIPAP Additional Past Medical History / Comment(s): "Possible PA 04/13/21 after getting Covid Vaccine" stress test showed possible heart attack . Concussions X19, tachycardia, thickening of heart wall, Barretts Esphogus, hiatal hernia, migraines, TIA 2007- affected short term memory. Hx of GI bleed possibly due to [place]aria Rx in [place]. "[place] Syndrome" with swelling of joints. Tinnitus with some hearing loss. Restless Leg Syndrome. Torn retina left eye. Slight edema bilateral lower extremities. "Beginning of Emphysema." cant wear cpap. quit smoking in . cough from morning drainage Last Myocardial Infarction Date:: June 14, 2007 History of Any Multi-Drug Resistant Organisms: None Reported Past Surgical History: Heart Catheterization, Heart Catheterization With Stent, Orthopedic Surgery Additional Past Surgical History / Comment(s): Left shoulder surgery,right shoulder surgery X3, eye surgeries on left eye X2(VITRECTOMY, TORN RETINA),laser surgery right eye X2, left forearm foreign body removed, left bicep lipoma r emoved, left rib cage lipoma removed X2, vasectomy, Heart Cath X2 (no stents), arthroscopy bilateral knees, I&D cyst left earlobe, excision of xiphoid process and chest nodule. Cataract-lenses Past Anesthesia/Blood Transfusion Reactions: No Reported Reaction Date of Last Stent Placement:: 2021 Past Psychological History: ADD/ADHD, Anxiety, Depression, PTSD Smoking Status: Former smoker Past Alcohol Use History: Occasional Past Drug Use History: None Reported - Past Family History Mother Family Medical History: COPD General Exam Limitations: no limitations General appearance: alert, in no apparent distress Head exam: Present: normocephalic Eye exam: Present: normal appearance ENT exam: Present: normal oropharynx Neck exam: Present: normal inspection. Absent: tenderness Respiratory exam: Present: normal lung sounds bilaterally, chest wall tenderness (Patient has discomfort left posterior, lateral and somewhat anterior lower ribs) Cardiovascular Exam: Present: regular rate, normal rhythm GI/Abdominal exam: Present: soft, tenderness (Minimal tenderness just below the ribs) Extremities exam: Present: normal inspection, full ROM. Absent: tenderness Back exam: Present: tenderness (Ribs on the left) Neurological exam: Present: alert Psychiatric exam: Present: normal affect, normal mood Skin exam: Present: normal color Course Vital Signs 08/28/24 13:48 Temperature 98.4 F Pulse Rate 93 Respiratory 17 Rate Blood Pressure 151/65 O2 Sat by Pulse 97 Oximetry Medical Decision Making - Medical Decision Making Was pt. sent in by a medical professional or institution ([facility]ITA Silva, [employer] S[employer], urgent care, hospital, or correction...) When possible be specific @ -No Did you speak to anyone other than the patient for history (EMS, parent, family, police, friend...)? What history was obtained from this source @ -No Did you review nursing and triage notes (agree or disagree)? Why? @ -I reviewed and agree with nursing and triage notes Were old charts reviewed (outside hosp., previous admission, EMS record, old EKG, old radiological studies, urgent care reports/EKG's, correction records)? Report findings @ -Chart reviewed including report from imaging study from recent visit, outside facility without acute traumatic injury to the chest abdomen or pelvis. Differential Diagnosis (chest pain, altered mental status, abdominal pain women, abdominal pain men, vaginal bleeding, weakness, fever, dyspnea, syncope, headache, dizziness, GI bleed, back pain, seizure, CVA, palpatations, mental health, musculoskeletal)? @ -Differential Musculoskeletal Muscular strain, contusion, ligament sprain, fracture, arthritis, septic arthritis, bursitis, cellulitis, muscle spasm, nerve compression, DVT, arterial occlusion, herpes zoster, electrolyte abnormality, tumor.... This is not meant to be in all inclusive list EKG interpreted by me (3pts min.). @ -As above X-rays interpreted by me (1pt min.). @ -Chest x-ray and left rib x-rays did not reveal acute abnormality CT interpreted by me (1pt min.). @ -None done U/S interpreted by me (1pt. min.). @ -None done What testing was considered but not performed or refused? (CT, X-rays, U/S, labs)? Why? @ -None What meds were considered but not given or refused? Why? @ -None Did you discuss the management of the patient with other professionals (p macrinafessionals i.e. , PA, [employer] SUSPENDER C[employer]TER, lab, RT, psych nurse, professor of social work, field representatives director, teacher, geospatial program management officer, case supervisor)? Give summary @ -No Was smoking cessation discussed for >3mins.? @ -No Was critical care preformed (if so, how long)? @ -No Were there social determinants of health that impacted care today? How? (Homelessness, low income, unemployed, alcoholism, drug addiction, transportation, low edu. Level, literacy, decrease access to med. care, assisted, rehab)? @ -No Was there de-escalation of care discussed even if they declined (Discuss DNR or withdrawal of care, Hospice)? DNR status @ -No What co-morbidities impacted this encounter? (DM, HTN, Smoking, COPD, CAD, Cancer, CVA, ARF, Chemo, Hep., AIDS, mental health diagnosis, sleep apnea, morbid obesity)? @ -None Was patient admitted / discharged? Hospital course, mention meds given and route, prescriptions, significant lab abnormalities, going to OR and other pertinent info. @ -Patient reevaluated and updated. Patient states only relief he has had was with [place] that he previously took for his back. Patient is updated on results and plan. Patient was discharged with follow-up with primary care physician Undiagnosed new problem with uncertain prognosis? @ -No Drug Therapy requiring intensive monitoring for toxicity (Heparin, Nitro, Insulin, Cardizem)? @ -No Were any procedures done? @ -No Diagnosis/symptom? @ -Rib contusion Acute, or Chronic, or Acute on Chronic? @ -Acute Uncomplicated (without systemic symptoms) or Complicated (systemic symptoms)? @ -Default Side effects of treatment? @ -No Exacerbation, Progression, or Severe Exacerbation? @ -No Poses a threat to life or bodily function? How? (Chest pain, USA, PA, pneumonia, PE, COPD, DKA, ARF, appy, cholecystitis, CVA, Diverticulitis, Homicidal, Dania cidal, threat to staff... and all critical care pts) @ -No Disposition Clinical Impression: Rib contusion Disposition: HOME SELF-CARE Condition: Stable Instructions (If sedation given, give patient instructions): Rib Contusion (ED) Additional Instructions: Please do follow-up with your primary care physician in the next day or 2 for recheck. Return for difficulty breathing, increased pain, worsening symptoms or any other concerns. Is patient prescribed a controlled substance at d/c from ED?: No Referrals: Yong Reed DO [Primary Care Provider] - 1-2 days Time of Disposition: 14:54
--- NOTE | 2024-08-28 14:33 | XR ---
EXAMINATION TYPE: XR ribs LT w pa chest xray, 5 views DATE OF EXAM: 08/28/2024 2:21 PM COMPARISON: 08/22/2021 CLINICAL INDICATION: Male, 54 years old with history of pain; PHH, pain FINDINGS: Heart normal size. Aorta and pulmonary vasculature within normal limits. No consolidation or pleural effusion. No displaced left rib fracture is seen. IMPRESSION: No displaced left rib fracture is seen. No acute cardiopulmonary process. [facility], Workstation: [facility], 08/28/2024 2:30 PM
[2024-08-28] MEDS: HYDROmorphone 1 MG/ML 1 ML SYRINGE IM STA (15:14)
[2024-08-28] MEDS: HYDROcodone/APAP 5-325MG 1 EACH TAB PO STA (15:15)
[2024-08-28 15:36] VITALS: RESP 16
== END 2024-08-28 15:36 | disposition home or self-care (01) ==
LOC: EC 13:30
DX: S20.219A Contusion of unspecified front wall of thorax, initial encounter (principal); Z86.73 Personal history of transient ischemic attack (TIA), and cerebral infarction without residual deficits; Z87.891 Personal history of nicotine dependence; Z88.8 Allergy status to other drugs, medicaments and biological substances; W10.9XXA Fall (on) (from) unspecified stairs and steps, initial encounter
CPT/HCPCS: 71101; 99284; 96372; J1171